=== PATIENT | male | born 1955 | race Caucasian/White ===

== ENCOUNTER 2017-09-23 07:18 | Inpatient (IN) | payer MEDICARE ==
[2017-09-23] MEDS ORDERED: Albuterol Sulfate 2.5 mg/0.5 ml Neb ONE (08:29)
[2017-09-23] MEDS ORDERED: Sodium Chloride For Inhalation 0.9% 3 ML NEB ONE (08:29)
[2017-09-23 08:56] LABS: Modified Allen's Test POSITIVE; Sodium 138 mmol/L (135-148); Vent NO
[2017-09-23 08:57] LABS: Mode BIPAP 14/7 RATE 8
[2017-09-23 09:09] LABS: Troponin I 0.425 ng/mL (< 0.028)
[2017-09-23] MEDS ORDERED: Acetaminophen 325 MG TAB PO PRN (12:39)
[2017-09-23] MEDS ORDERED: Dextrose 5% in Water 1,000 ML IV PRN (12:39)
[2017-09-23] MEDS ORDERED: Dextrose 50% Abboject 50 ML SYRINGE SLOW IVP PRN (12:39)
[2017-09-23] MEDS ORDERED: Guaifenesin DM 100-10/5 ML UDCUP PO PRN (12:39)
[2017-09-23] MEDS ORDERED: Nicotine 21 MG PATCH TD SCH ×2 (12:45→13:30)
[2017-09-23 13:06] LABS: Troponin I 0.993 ng/mL (< 0.028)
[2017-09-23 14:02] VITALS: BMI 34.9
[2017-09-23 15:29] LABS: Critical Call Chem Troponin I RESULT DECREASING; Troponin I 0.917 ng/mL (< 0.028)
[2017-09-23] MEDS: Furosemide 40 MG TAB PO SCH (15:53)
[2017-09-23] MEDS: Nicotine 21 MG PATCH TD SCH (15:53)
[2017-09-23] MEDS: HumaLOG 300 UNITS/3 ML VIAL SC PRN ×2 (15:56→20:56)
[2017-09-23] MEDS: Sodium Chloride 0.9% 1,000 ML IV SCH (16:00)
--- NOTE | 2017-09-23 16:33 | HP ---
REASON FOR ADMISSION: Acute respiratory failure with hypoxia and hypercarbia, acute on COPD exacerbation, mild CHF exacerbation. HISTORY OF PRESENTING ILLNESS: The patient gives history of waking up around 4 a.m. with severe shortness of breath. As he finally could not breathe and felt very suffocated, called EMS. EMS took him to [facility] where he has had initial workup done and was placed on BiPAP for acute respiratory failure with hypoxia. He was found to have had saturations of 83% on room air. The patient also was given 80 mg of Lasix and was placed on nitroglycerin drip again, it is not clear why he was placed on nitroglycerin drip. The patient does not have any chest pain at present nor did he have when he woke up. The patient has chronic cough with expectoration of white sputum. He continues to smoke one pack a day and has been doing so for the last 42 years or so. He states he normally ambulates by himself. No complaints of fever, palpitations, or PND. PAST MEDICAL AND SURGICAL HISTORY: Severe coronary artery disease needing redo bypass once his ejection fraction improves, history of CHF with systolic dysfunction, hypertension, diabetes mellitus type 2, dyslipidemia, history of CVA, and appendectomy. CURRENT MEDICATIONS: Patient is on aspirin 81 mg twice daily, Coreg 12.5 mg twice daily, metformin 500 mg twice daily, and Pravachol 40 mg at bedtime. ALLERGIES: No known drug allergies. PERSONAL HISTORY: Smokes one pack a day and has been doing so from last 42 years. Does not abuse drugs or alcohol. He stays alone. Patient is not . FAMILY HISTORY: Mother of breast cancer and complications at the age of 82 years. Father at the age of 65 years. He has had history of coronary artery disease and valve replacement. He apparently in his sleep. REVIEW OF SYSTEMS: The following complete review of systems was negative, unless otherwise mentioned in the HPI or below: Constitutional: Weight loss or gain, ability to conduct usual activities. Skin: Rash, itching. Eyes: Double vision, pain. ENT/Mouth: Nose bleeding, neck stiffness, pain, tenderness. Cardiovascular: Palpitations, dyspnea on exertion, orthopnea. Respiratory: Shortness of breath, wheezing, cough, hemoptysis, fever or night sweats. Gastrointestinal: Poor appetite, abdominal pain, heartburn, nausea, vomiting, constipation, or diarrhea. Genitourinary: Urgency, frequency, dysuria, nocturia. Musculoskeletal: Pain, swelling. Neurologic/Psychiatric: Anxiety, depression. Allergy/Immunologic: Skin rash, bleeding tendency. PHYSICAL EXAMINATION: GENERAL: The patient is a 62-year-old male who is currently on BiPAP and is not in any distress. VITAL SIGNS: Blood pressure 100/78, pulse 86 per minute, respiratory rate 24 per minute, temperature 97.6 degrees Fahrenheit, saturating 97% on BiPAP and was 83% on room air at [facility] prior to being placed on BiPAP. NECK: Supple. There is elevated JVD. EYES: Extraocular muscles intact. Pupils reacting to light. ORAL CAVITY: Mucous membranes are dry. No exudates or congestion. CARDIOVASCULAR SYSTEM: S1, S2 heard. Regular rhythm. RESPIRATORY SYSTEM: Air entry 2+ bilateral. Scattered rhonchi plus bilateral. ABDOMEN: Soft, bowel sounds heard. No tenderness, rigidity or guarding. EXTREMITIES: No peripheral edema or calf tenderness. VASCULAR SYSTEM: Peripheral pulses 1+ bilateral. No ischemic ulcerations or gangrene. CENTRAL NERVOUS SYSTEM: No gross focal deficits seen. Patient is alert, awake , oriented x3. PSYCHIATRIC SYSTEM: The patient's mood is euthymic. No hallucinations or delusions. LABORATORY DATA AND X-RAY FINDINGS: Most of his labs were done at [facility]. Sodium 138, potassium 4.6, serum bicarbonate 20, BUN 24, creatinine 1.4, glucose 162, albumin 4.3, lipase was 109, magnesium 2.3. BNP was 401, PT/INR within normal limits. White count of 13, hemoglobin and hematocrit 18 and 53, platelet count 184, MCV is 86. Had indeterminate troponin of 0.05 initially and has peaked up to 0.9, CK-MB 8.5. Had a blood gas done which shows pH of 7.41, pCO2 30, pO2 77, and bicarbonate is 18. Chest x-ray done at [facility] shows the report, which states congestion with cardiomegaly. EKG done shows normal sinus rhythm at 83 beats per minute. There is incomplete LBBB and T inversions seen in lateral wall V4, V5, V6. CLINICAL IMPRESSION AND PLAN: The patient will be admitted to [facility] for acute on chronic respiratory failure with hypoxemia and hypercarbia. He also has acute chronic obstructive pulmonary disease exacerbation with ongoing smoking history and mild congestive heart failure exacerbation with very low ejection fraction. His last known ejection fraction by cardiac catheterization done in 06/2017 was around 10%. He will be on Lasix 40 mg p.o. twice daily along with DuoNebs, Solu-Medrol IV q.6 hourly, and empiric Levaquin. We will continue his bilevel positive airway pressure as before. Also gently hydrate him as patient will be on clear liquid diet due to him being on bilevel positive airway pressure. We will consult Dr. Urbano who is cement mason for Pulmonology. The patient was counseled with regards to smoking cessation. Patient has history of coronary artery disease with all of his grafts occluded and needs a redo but his ejection fraction is 10% with his ongoing smoking history and noncompliance with diet. His surgery was postponed until such time as he clears himself. We will continue to closely monitor him on IMCU floor. RADHA
[2017-09-23] MEDS ORDERED: Sterile Water 10 ML ONE (17:08)
--- NOTE | 2017-09-23 17:10 | RAD ---
ONE VIEW CHEST: History: Dyspnea. Comparison: 02-25-17 FINDINGS: Portable upright chest demonstrates sternotomy wires. The heart size is within normal limits. Pulmon jim vessels and hilum are normal. Costophrenic angles are clear. No masses or consolidation. No pneu mothorax or osseous abnormality. Atherosclerosis of the aorta is noted. IMPRESSION: 1. Cardiomegaly. No acute process. 2. Atherosclerosis of the aorta. POS: MARSHALL
[2017-09-23] MEDS: Mometasone/Formoterol 120 PUFF INHALER INH SCH (18:45)
--- NOTE | 2017-09-23 19:38 | CON ---
DATE OF CONSULTATION: 09/23/2017 HISTORY OF PRESENT ILLNESS: Mr. Stubbs is a 62-year-old male. [facility] and [facility] here with complaints of shortness of breath. He was originally noninvasivel y ventilated, this was discontinued upon arrival in the ICU. PAST MEDICAL HISTORY: 1. Remarkable for heart disease with history of coronary bypass grafting in the past. 2. History of myocardial infarctions x3 per his history. 3. History of a long time tobacco use. He denies ever being told he had obstructive lung disease; however. 4. History of a hospitalization here in January where he was considered for possible reoperative jose nary bypass grafting. He was found to have severe [place] 3-vessel coronary disease, complete occlus ion of all 5 bypass grafts and severe reduction of left ventricular function as well as myocardial i nfarction. Dr. Cobos recommended medical management, it was felt that if he could quit smoking and it could be documented that he followed up with his physicians can surgery might be considered, but was not felt to be appropriate at that time. 5. History of diabetes. 6. History of lipid disorder. 7. History of stroke. 8. History of an appendectomy. FAMILY HISTORY: Negative for lung disease at an early age. MEDICATIONS: On admission, this time, he is only on Coreg. He said he could only aford the 4 Vinicius r drugs, although he is still spending a lot of that money on cigarettes. ALLERGIES: Reports no drug allergies. REVIEW OF SYSTEMS: Otherwise negative. PHYSICAL EXAMINATION: VITAL SIGNS: Blood pressure is 151/88, heart rate is 76, respiratory rate 16, oximetry is 100%. HEENT: Pupils are equal. Sclerae is anicteric. NECK: Supple. LUNGS: Remarkable for bilateral equal breath sounds. He was not wheezing when I saw him. HEART: Regular rhythm. S1 and S2 are normal. ABDOMEN: Soft and nontender. EXTREMITIES: Without asymmetry. LABORATORY DATA AND IMAGING: White count 9.5, hemoglobin 18.2, platelets 173. He was given a diure tic in the emergency room. His creatinine was elevated at 1.43. No chest x-ray done in the emergen cy room, so chest radiograph was ordered. Chest radiograph is clear. IMPRESSION AND PLAN: 1. ? chronic obstructive pulmonary disease exacerbation. Clinically, he does not appear to be in c ongestive heart failure, although when I was consulted to see him, he had already received a diureti c and diuresed. 2. Erythrocytosis either secondary to intravascular volume depletion or untreated sleep apnea or ab ove, I will need to be repeated in the morning. 3. History of occlusion of all 5 bypass grafts with severe left ventricular dysfunction. 4. History of severe obstructive lung disease. I will be happy to follow while he is in the [facility].
[2017-09-23] MEDS: Atorvastatin Calcium 40 MG TAB PO SCH (20:55)
[2017-09-23] MEDS: Docusate 100 MG CAP PO SCH (20:55)
[2017-09-23] MEDS: Famotidine 20 MG TAB PO SCH (20:55)
[2017-09-23] MEDS ORDERED: Non-Formulary Item 1 EACH (Budesonide-Formoterol [Symbicort 160-4.5] 2 PUFF) INH SCH (21:00)
[2017-09-23] MEDS ORDERED: FLU VACC QS2017-18 36 mo. & older 0.5 ML SYRINGE IM ONE (21:00)
--- NOTE | 2017-09-24 00:05 | CON ---
DATE OF CONSULTATION: 09/23/2017 CARDIOLOGY CONSULTATION PRIMARY HOST: Mando Valadez M.D. REASON FOR CONSULTATION: Acute on chronic combined congestive heart failure. HISTORY OF PRESENT ILLNESS: Mr. Stubbs is a 62-year-old gentleman with severe ischemic car diomyopathy under the care of Dr. Mando Valadez. He has known coronary artery disease and underwe nt 5-vessel bypass surgery remotely with the last catheterization in 01/2017 revealing 0 of 5 bypass grafts patent. He has severe LV dysfunction with an ejection fraction of 10%-15% and is currently being managed medically. Recommendations in January was for a LifeVest fitting with echo and office f kaylene after 40 days post-MT. Review of the office record does not show evidence of follow up in t he outpatient setting and he is not currently wearing a LifeVest. He has not had prophylactic AICD implant to date. He presents with acute onset of dyspnea which has worsened over the days prior to its acute worsenin g. He likens his breathing problem to an acute chronic obstructive pulmonary disease exacerbation a nd was placed in the Intensive Care Unit for close observation and treatment. He has improved consi derably with treatments and with IV diuresis with Lasix. PAST MEDICAL HISTORY: 1. Coronary artery disease with ischemic cardiomyopathy, ejection fraction in January with 10%-15%, 0 of 5 bypass grafts were patent. 2. Hypertension. 3. Type 2 diabetes. 4. Morbid obesity. 5. Dyslipidemia. PAST SURGICAL HISTORY: 1. Appendectomy. 2. 5-vessel bypass. 3. Heart catheterization. ALLERGIES: No known drug allergies. SOCIAL HISTORY: He smokes cigarettes for decades and continues to smoke cigarettes, smoking 1 pack per day currently. He denies illicit drug use or alcohol abuse. FAMILY HISTORY: Positive for atherosclerosis. CURRENT MEDICATIONS: At home include: 1. Aspirin 325 mg daily. 2. Carvedilol 12.5 mg daily. 3. Metformin 500 mg daily. 4. Pravastatin 40 mg daily. Of note, he reports not taking his medicines for the last month due to financial constraints and dori bility to pay for them. REVIEW OF SYSTEMS: As per history of present illness, the remainder of 12 system review is negative . PHYSICAL EXAMINATION: VITAL SIGNS: Blood pressure is 151/88, pulse 76 and regular, respiration rate 16 and nonlabored, te mperature 98.8, oxygen saturation is 100% on room air. GENERAL: This is a well-developed, morbidly obese 62-year-old gentleman in no acute distr ess. He is alert and oriented x4, answers questions appropriately. HEENT: Head was atraumatic, normocephalic. Pupils are equally round and reactive. Sclerae and con junctivae are clear. Oral and nasal mucosa is intact. No lesions. NECK: Supple. No JVD, thyromegaly, or carotid bruits. CHEST: Symmetrical in inspiration and expiration. HEART: Regular in rate and rhythm with soft 2/6 systolic murmur at the apex with left axilla. PMI enlarged and displaced laterally. LUNGS: Bibasilar crackles are noted bilaterally with diminished breath sounds in the bases. ABDOMEN: Soft, nontender, nondistended, without mass or organomegaly. Bowel sounds are present in all 4 quadrants. No flank bruits auscultated. EXTREMITIES: 2+ pulses noted bilaterally. Upper and lower extremity strength 5/5 bilaterally. The re is mild ankle edema bilaterally. NEUROLOGIC: Grossly intact without focal motor deficits appreciated. DATABASE: Sinus rhythm, frequent PVCs, incomplete left bundle branch block, nonspecific T changes. LABORATORY DATA: CBC reveals a white count of 9, H\T\H 18 and 55, platelet count 173. Differential white blood cells normal. Red cell indices normocytic. Coagulation studies not performed. Chemistries: Electrolytes are normal. BUN and creatinine of 22 and 1.4. LFTs are within normal limits. CK is 495 with a CK-MB of 8.5 and troponin of 0.9. BNP i s elevated at 350. ASSESSMENT: 1. Congestive heart failure, acute on chronic combined. 2. Chronic obstructive pulmonary disease with acute exacerbation. 3. Ischemic cardiomyopathy with an ejection fraction of 10%-15%. 4. Poor compliance with medical recommendations. 5. Chronic kidney disease stage 3. 6. Dyslipidemia. 7. Type 2 diabetes mellitus. RECOMMENDATIONS: 1. From a cardiac standpoint, he has improved symptomatically with IV diuresis with Lasix. We will continue this for optimization of his volume status with the resumption of medical management. He will need to be seen again by Dr. Jacobson to consider AICD implantation versus a CRTD device. He is a high risk for sudden cardiac given his underlying cardiac substrate. 2. I will inform Dr. Valadez of his admission. He will assume care tomorrow for the remainder of this hospitalization. I appreciate the opportunity to participate.
[2017-09-24 04:07] LABS: #Basophils 0.1 thou/uL (0.0-0.2); #Lymphocytes 0.8 thou/uL (1.20-3.40); #Monocytes 0.4 thou/uL (0.11-0.59); #Neutrophils 15.3 thou/uL (1.40-6.50); %Basophils 0.3 % (0.0-1.0); %Eosinophils 0.1 % (0.0-10.0); %Lymphocytes 4.5 % (21.0-51.0); %Monocytes 2.4 % (0.0-10.0); Hematocrit 51.2 % (42.0-52.0); Mean Platelet Volume 7.8 fL (7.4-10.4); Red Blood Cell (RBC) Count 5.65 mill/uL (4.70-6.10); White Blood Cell (WBC) Count 16.5 thou/uL (4.8-10.8)
[2017-09-24 04:08] LABS: Anion Gap 14 mmol/L (10-20); BUN (Urea Nitrogen) 27 mg/dL (8.4-25.7); Calc. Creatinine Clearance 93 mL/min (70-130); Calcium 9.5 mg/dL (7.8-10.44); Carbon Dioxide 23 mmol/L (23-31); Chloride 103 mmol/L (98-107); Estimated GFR-MDRD 52
[2017-09-24] MEDS: HumaLOG 300 UNITS/3 ML VIAL SC PRN ×3 (05:59→17:58)
[2017-09-24] MEDS: Mometasone/Formoterol 120 PUFF INHALER INH SCH ×2 (07:47→19:22)
[2017-09-24] MEDS: Aspirin 325 MG TAB PO SCH (08:45)
[2017-09-24] MEDS: Famotidine 20 MG TAB PO SCH ×2 (08:45→20:18)
[2017-09-24] MEDS: Docusate 100 MG CAP PO SCH ×3 (08:45→20:18)
[2017-09-24] MEDS: Clopidogrel Bisulfate 75 MG TAB PO SCH (08:45)
[2017-09-24] MEDS: Nicotine 21 MG PATCH TD SCH (08:45)
[2017-09-24] MEDS: Enoxaparin Sodium 40 MG/0.4 ML SYRINGE SC SCH (08:45)
[2017-09-24] MEDS: Furosemide 40 MG TAB PO SCH ×2 (08:45→14:09)
[2017-09-24] MEDS: Sodium Chloride 0.9% 1,000 ML IV SCH (08:46)
--- NOTE | 2017-09-24 11:18 | PDOC.PN ---
- Subjective Encounter Start Date: 09/24/17 Encounter Start Time: 07:55 Subjective: breathing better, no sob -: is on nasal canula -: says his tip of nose is always dark and not something new - Objective Resuscitation Status: Resuscitation Status FULL:Full Resuscitation MAR Reviewed: Yes Vital Signs & Weight: Vital Signs (12 hours) Temp Pulse Resp BP Pulse Ox 09/24/17 08:26 98.0 F 79 24 H 141/56 H 98 09/24/17 08:00 98.0 F 79 24 H 98 09/24/17 07:43 76 20 100 09/24/17 04:00 97.8 F 09/24/17 00:00 98.3 F 09/23/17 23:21 85 18 98 Weight Admit Weight 4.124 oz Weight 257 lb 11.526 oz Most Recent Monitor Data Heart Rate from ECG 73 NIBP 118/61 NIBP BP-Mean 87 Respiration from ECG 23 SpO2 100 I&O: 09/23/17 09/24/17 09/25/17 06:59 06:59 06:59 Intake Total 1675 Output Total 1825 200 Balance -150 -200 Result Diagrams: 09/24/17 03:26 09/24/17 03:26 Additional Labs: Accuchecks 09/24/17 09/23/17 09/23/17 05:57 20:55 14:31 POC Glucose 206 H 205 H 216 H Phys Exam - Physical Examination plethora+over ant chest and face HEENT: PERRLA, moist MMs Neck: no JVD, supple Respiratory: no wheezing, no rales Cardiovascular: RRR, no significant murmur Gastrointestinal: soft, non-tender, positive bowel sounds Musculoskeletal: no edema, pulses present Neurological: non-focal, moves all 4 limbs Psychiatric: A&O x 3 Dx/Plan (1) Acute respiratory failure with hypoxia and hypercarbia Code(s): J96.01 - ACUTE RESPIRATORY FAILURE WITH HYPOXIA; J96.02 - ACUTE RESPIRATORY FAILURE WITH HYPERCAPNIA Status: Resolved Comment: is off bipap , now on nasal canula (2) COPD exacerbation Code(s): J44.1 - CHRONIC OBSTRUCTIVE PULMONARY DISEASE W (ACUTE) EXACERBATION Status: Acute (3) CHF exacerbation Code(s): I50.9 - HEART FAILURE, UNSPECIFIED Status: Acute Qualifiers: Congestive heart failure type: systolic Qualified Code(s): I50.23 - Acute on chronic systolic (congestive) heart failure (4) CAD (coronary artery disease) Code(s): I25.10 - ATHSCL HEART DISEASE OF [place] CORONARY ARTERY W/O ANG PCTRS Status: Chronic Qualifiers: Coronary Disease-Associated Artery/Lesion type: bypass graft [place] vs. transplanted heart: [place] heart Associated angina: without angina Qualified Code(s): I25.810 - Atherosclerosis of coronary artery bypass graft(s) without angina pectoris (5) DM type 2 (diabetes mellitus, type 2) Status: Chronic Qualifiers: Diabetes mellitus complication status: with unspecified complications Diabetes mellitus mcc insulin use: without mcc use Qualified Code( s): E11.8 - Type 2 diabetes mellitus with unspecified complications (6) H/O: CVA (cerebrovascular accident) Code(s): Z86.73 - PRSNL HX OF TIA (TIA), AND CEREB INFRC W/O RESID DEFICITS Status: Chronic (7) HLD (hyperlipidemia) Code(s): E78.5 - HYPERLIPIDEMIA, UNSPECIFIED Status: Chronic Qualifiers: Hyperlipidemia type: unspecified Qualified Code(s): E78.5 - Hyperlipidemia , unspecified (8) HTN (hypertension) Code(s): I10 - ESSENTIAL (PRIMARY) HYPERTENSION Status: Chronic Qualifiers: Hypertension type: essential hypertension Qualified Code(s): I10 - Essential (primary) hypertension (9) Tobacco dependence Code(s): F17.200 - NICOTINE DEPENDENCE, UNSPECIFIED, UNCOMPLICATED Status: Chronic - Plan may tx pt to telemetry -: is on oral lasix -: dc iv fluids -: may switch to oral steroids -: to amb as tolerated, oral solid diet * . Review of Systems - Medications/Allergies Allergies/Adverse Reactions: Allergies Allergy/AdvReac Type Severity Reaction Status Date / Time No Known Allergies Allergy Verified 09/23/17 15:31 Medications: Current Medications Acetaminophen (Tylenol) 650 mg PO Q4H PRN PRN Reason: Headache/Fever or Pain Albuterol/Ipratropium (Duoneb) 3 ml NEB [id number] [id number] Last Admin: 09/24/17 07:43 Dose: 3 ml Aspirin (Aspirin) 325 mg PO DAILY [facility] Last Admin: 09/24/17 08:45 Dose: 325 mg Atorvastatin Calcium (Lipitor) 80 mg PO HS [facility] Last Admin: 09/23/17 20:55 Dose: 80 mg Clopidogrel Bisulfate (Plavix) 75 mg PO DAILY [facility] Last Admin: 09/24/17 08:45 Dose: 75 mg Dextrose/Water (Dextrose 50%) 25 gm SLOW IVP PRN PRN PRN Reason: Hypoglycemia Docusate Sodium (Colace) 100 mg PO BID [facility] Last Admin: 09/24/17 08:48 Dose: Not Given Enoxaparin Sodium (Lovenox) 40 mg SC 0900 [facility] Last Admin: 09/24/17 08:45 Dose: 40 mg Famotidine (Pepcid) 20 mg PO BID [facility] Last Admin: 09/24/17 08:45 Dose: 20 mg Furosemide (Lasix) 40 mg PO 0900,1400 [facility] Last Admin: 09/24/17 08:45 Dose: 40 mg Glucagon (Glucagon) 1 mg IM PRN PRN PRN Reason: Hypoglycemia Guaifenesin/Dextromethorphan (Robitussin Dm) 15 ml PO Q4H PRN PRN Reason: Cough Dextrose/Water (D5w) 1,000 mls @ 0 mls/hr IV .Q0M PRN; As Directed PRN Reason: Hypoglycemia Levofloxacin 500 mg/ Device 100 mls @ 100 mls/hr IVPB 1400 [facility] Last Admin: 09/23/17 15:51 Dose: 100 mls Insulin Human Lispro (Humalog) 0 units SC .MODERATE SLIDING SC PRN PRN Reason: Moderate [place] Scale Last Admin: 09/24/17 05:59 Dose: 4 unit Metformin HCl (Glucophage Xr) 500 mg PO QPM-WM [facility] Methylprednisolone Sodium Succinate (Solu-Medrol) 40 mg IVP Q6HR [facility] Last Admin: 09/24/17 05:57 Dose: 40 mg Mometasone Furoate/Formoterol Fumar (Dulera 200 Mcg/5 Mcg Inhaler) 2 puff INH BID-RT [facility] Last Admin: 09/24/17 07:47 Dose: 2 puff Sodium Chloride (Flush - Normal Saline) 10 ml IVF Q12HR [facility] Last Admin: 09/24/17 08:46 Dose: Not Given Sodium Chloride (Flush - Normal Saline) 10 ml IVF PRN PRN PRN Reason: Saline Flush
[2017-09-24] MEDS ORDERED: metFORMIN XR 500 MG TAB PO SCH (17:00)
[2017-09-24] MEDS: Fluticasone Propionate Nasal Spray 16 gm Bottle NASAL SCH (20:12)
[2017-09-24] MEDS: Atorvastatin Calcium 40 MG TAB PO SCH (20:18)
[2017-09-24] MEDS ORDERED: CEFAZOLIN/Water 2 GM/20 ML SYRINGE SLOW IVP SCH (21:15)
--- NOTE | 2017-09-24 21:17 | PRG ---
DATE OF SERVICE: 09/24/2017 SUBJECTIVE: Mr. Stubbs did well overnight. He says he is feeling better. He has moved out of the [facility]. OBJECTIVE: VITAL SIGNS: He is afebrile, respiratory rate is in the 20s, oximetry 97%, blood pressure 163/86. LUNGS: Clear now. IMPRESSION: 1. Chronic obstructive pulmonary disease exacerbation, dramatically improved. 2. Underlying cardiomyopathy with medical noncompliance. Electrophysiology has been consulted. We will decrease his steroids. We will continue nebulizer treatments.
--- NOTE | 2017-09-24 23:34 | CON ---
Sayda Caruso NP, dictating for Agustin Jacobson M.D. DATE OF CONSULTATION: 09/24/2017 CARDIAC ELECTROPHYSIOLOGY CONSULTATION NOTE REFERRING PHYSICIAN: Dr. Steve REASON FOR CONSULTATION: Chronic ischemic cardiomyopathy. HISTORY OF PRESENT ILLNESS: Joseph Stubbs is a 62-year-old male patient who is seen today in consultation at the request of Dr. Steve. The patient has a history of chronic ischemic cardiomyopathy. He underwent coronary artery bypass grafting several years ago. He suffered an CA in January of this year. At that time, his left ventricular ejection fraction was severely diminished at 10-15 percent. He was recommended for a LifeVest and then follow up with an echocardiogram 45 days later. The patient was noncompliant with followup. He presented to the Emergency Room recently with heart failure exacerbation superimposed on COPD. He was given Lasix with supplemental potassium and his symptoms improved greatly. The patient had a repeat echocardiogram earlier today and the results are pending. The patient reports dyspnea on exertion and extreme fatigue with activity such as working in his yard, picking up tree limbs. Sometimes he notices severe left arm pain and palpitations associated with these incidents. He denies any giovanna syncope. His symptoms improve when he rests. PAST MEDICAL HISTORY: 1. Atherosclerotic cardiovascular disease status post previous coronary artery bypass grafting, probably occluded bypass grafts. 2. Type 2 diabetes mellitus. 3. Acute on chronic congestive heart failure. 4. Chronic obstructive pulmonary disease with continued tobacco habituation. 5. History of CVA. 6. Dyslipidemia. 7. Obesity. 8. Hypertension. 9. Dilated cardiomyopathy with decreased left ventricular ejection fraction of 10-15%. 10. Myocardial infarction in 01/2017. 11. History of nonsustained ventricular tachycardia 5 days after his CA in January of this year. ALLERGY/INTOLERANCE: None known. CURRENT MEDICATIONS: 1. Albuterol inhaler p.r.n. 2. Lisinopril 20 mg daily. 3. Coreg 12.5 mg b.i.d. 4. Metformin 500 mg b.i.d. 5. Pravastatin 40 mg daily. FAMILY HISTORY: The patient's father at age 65. He had some heart rhythm issues in heart valve replacement. His mother at age 82. SOCIAL HISTORY: The patient is disabled. He has approximately a [id number] history of smoking and quit smoking on Saturday. He denies any use of alcohol. REVIEW OF SYSTEMS: Ten point review of systems was negative except what was mentioned in the history of present illness. PHYSICAL EXAMINATION: GENERAL: The patient is an overweight appearing male in no apparent distress. VITAL SIGNS: Blood pressure 142/62, pulse 70, respirations 16. HEENT: Head normocephalic. Pupils equal, round, and reactive to light and accommodation. NECK: Supple, without jugular venous distention. RESPIRATORY: Diminished throughout the lung bell but no adventitious sounds noted. Respiratory effort unlabored with good bilateral excursion. CARDIOVASCULAR: Regular rate and rhythm. S1, S2. A grade 2/6 holosystolic murmur was noted at the left sternal border, which radiated toward the apex. PMI laterally displaced. No thrills, lifts, or heaves. ABDOMEN: Soft, less nontender. Bowel sounds normoactive. Hepatojugular reflux negative. EXTREMITIES: No lower extremity edema noted. NEUROLOGIC/PSYCHIATRIC: Oriented x3. Normal affect. Cranial nerves II-XII grossly intact. DIAGNOSTIC DATA: EKG today demonstrated normal sinus rhythm with evidence of anteroseptal CA of indeterminant age. Isolated ventricular prematures were noted. The QRS duration was 110 milliseconds. There was a borderline first degree AV block. Echocardiogram results pending. IMPRESSION: 1. History of dilated cardiomyopathy with decreased left ventricular ejection fraction. The patient had an echocardiogram today and the results are pending. However, based on his clinical history most likely his ejection fraction is less than 35%. 2. Acute on chronic congestive heart failure, improved. 3. Hypertension. 4. Dyslipidemia. 5. Type 2 diabetes mellitus. 6. Comorbidity of chronic obstructive pulmonary disease with tobacco habituation. 7. History of nonsustained ventricular tachycardia documented after his myocardial infarction. The patient does have episodes of lightheadedness with associated tachycardia, but we have not been able to correlate his symptoms with ventricular arrhythmia. 8. Relatively narrow QRS duration at 110 milliseconds. PLAN: If the patient's echocardiogram demonstrates a left ventricular ejection fraction less than 35%, the patient will meet criteria for an ICD based on primary prevention. Because his QRS duration is around 110 milliseconds, he does not meet criteria for cardiac resynchronization therapy. We will review the patient's echocardiogram and tentatively schedule him for an ICD tomorrow. The patient understands the goals and risks including , CA, CVA, cardiac arrest, cardiac perforation, pneumothorax, lead dislodgement, and possible need for repeat or serial procedures. We appreciate the opportunity to participate in this patient's care. This plan has been discussed with Dr. Agustin Jacobson. RADHA
[2017-09-25] MEDS: Mometasone/Formoterol 120 PUFF INHALER INH SCH ×2 (07:12→19:06)
[2017-09-25] MEDS: Furosemide 40 MG TAB PO SCH (09:00)
[2017-09-25] MEDS: Aspirin 325 MG TAB PO SCH (09:00)
[2017-09-25] MEDS: Docusate 100 MG CAP PO SCH ×2 (09:00→20:13)
[2017-09-25] MEDS: Clopidogrel Bisulfate 75 MG TAB PO SCH (09:00)
--- NOTE | 2017-09-25 09:11 | PQF ---
CLINICAL DOCUMENTATION IMPROVEMENT CLARIFICATION FORM: ICD-10 Updated PLEASE DO AN ADDENDUM TO THE PROGRESS NOTE WITH ANY DOCUMENTATION UPDATES OR ADDITIONS AND CARRY THROUGH TO DC SUMMARY. THANK YOU. DATE: 09/25 ATTN: DR. Evonne WESTBROOK Please exercise your independent, professional judgment in responding to the clarification form. Clinical indicators are provided on the bottom of this form for your review Please check appropriate box(s): AMI TYPE: [ ] Acute Coronary Syndrome (ACS) without Acute MD meaning Unstable Angina [ ] NSTEMI [ ] AMI Type II DUE TO (if applicable): [ x ] Demand Ischemia [ ] Occlusion of coronary bypass graft(s) [x ] Underlying CAD [ ] Other [ ] Other diagnosis [ ] Unable to determine CLINICAL INDICATORS - SIGNS / SYMPTOMS / LABS TROP I: 0.425, 0.993, 0.917 CKMB: 8.5 (ON ADMIT, 09/23) RISKS: SEVERE CAD IN NEED OF RE-DO CABG HTN DM II ACUTE ON CHRONIC SYSTOLIC CHF EXACERBATION ACUTE ON CHRONIC RESPIRATORY FAILURE TREATMENTS: CARDIOLOGY CONSULT EP CONSULT SUPPLEMENTAL OXYGEN TELEMETRY MONITORING THANK YOU! Ileana (This form is maintained as a part of the permanent medical record) 2014 [employer]. All Rights Reserved Ileana Dinh RN, BSN [email or web address] Office: [phone] [facility]
[2017-09-25] MEDS: Famotidine 20 MG TAB PO SCH ×2 (09:27→20:13)
[2017-09-25] MEDS: Fluticasone Propionate Nasal Spray 16 gm Bottle NASAL SCH ×2 (09:27→21:08)
--- NOTE | 2017-09-25 10:13 | PDOC.PN ---
- Subjective Encounter Start Date: 09/25/17 Encounter Start Time: 08:40 Subjective: breathing better, no chest pain - Objective Resuscitation Status: Resuscitation Status FULL:Full Resuscitation MAR Reviewed: Yes Vital Signs & Weight: Vital Signs (12 hours) Temp Pulse Resp BP Pulse Ox 09/25/17 08:00 97.5 F L 72 20 151/81 H 95 09/25/17 07:11 74 16 98 09/25/17 04:00 97.5 F L 73 18 117/56 L 95 09/25/17 00:09 78 16 09/25/17 00:00 78 128/78 Weight Admit Weight 4.124 oz Weight 249 lb 3.2 oz Most Recent Monitor Data Heart Rate from ECG 73 NIBP 118/61 NIBP BP-Mean 87 Respiration from ECG 23 SpO2 100 I&O: 09/24/17 09/25/17 09/26/17 06:59 06:59 06:59 Intake Total 1675 1238 Output Total 1825 500 Balance -150 738 Result Diagrams: 09/24/17 03:26 09/24/17 03:26 Additional Labs: Accuchecks 09/25/17 09/24/17 09/24/17 05:51 20:41 17:48 POC Glucose 168 H 227 H 242 H 09/24/17 11:42 POC Glucose 218 H Phys Exam - Physical Examination HEENT: PERRLA, moist MMs Neck: no JVD, supple Respiratory: no wheezing, no rales Cardiovascular: RRR, no significant murmur Gastrointestinal: soft, non-tender, positive bowel sounds Musculoskeletal: no edema, pulses present Neurological: non-focal, moves all 4 limbs Psychiatric: A&O x 3 Dx/Plan (1) Acute respiratory failure with hypoxia and hypercarbia Code(s): J96.01 - ACUTE RESPIRATORY FAILURE WITH HYPOXIA; J96.02 - ACUTE RESPIRATORY FAILURE WITH HYPERCAPNIA Status: Resolved Comment: is off bipap , now on nasal canula (2) COPD exacerbation Code(s): J44.1 - CHRONIC OBSTRUCTIVE PULMONARY DISEASE W (ACUTE) EXACERBATION Status: Resolved (3) CHF exacerbation Code(s): I50.9 - HEART FAILURE, UNSPECIFIED Status: Acute Qualifiers: Congestive heart failure type: systolic Qualified Code(s): I50.23 - Acute on chronic systolic (congestive) heart failure (4) CAD (coronary artery disease) Code(s): I25.10 - ATHSCL HEART DISEASE OF [place] CORONARY ARTERY W/O ANG PCTRS Status: Chronic Qualifiers: Coronary Disease-Associated Artery/Lesion type: bypass graft [place] vs. 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 insulin use: without middle or intermediate school principal use Qualified Code( s): E11.8 - Type 2 diabetes mellitus with unspecified complications (6) H/O: CVA (cerebrovascular accident) Code(s): Z86.73 - PRSNL HX OF TIA (TIA), AND CEREB INFRC W/O RESID DEFICITS Status: Chronic (7) HLD (hyperlipidemia) Code(s): E78.5 - HYPERLIPIDEMIA, UNSPECIFIED Status: Chronic Qualifiers: Hyperlipidemia type: unspecified Qualified Code(s): E78.5 - Hyperlipidemia , unspecified (8) HTN (hypertension) Code(s): I10 - ESSENTIAL (PRIMARY) HYPERTENSION Status: Chronic Qualifiers: Hypertension type: essential hypertension Qualified Code(s): I10 - Essential (primary) hypertension (9) Tobacco dependence Code(s): F17.200 - NICOTINE DEPENDENCE, UNSPECIFIED, UNCOMPLICATED Status: Chronic (10) Demand ischemia of myocardium Code(s): I24.8 - OTHER FORMS OF ACUTE ISCHEMIC HEART DISEASE Status: Acute - Plan is going for AICD placement today -: dc metformin, add glipizide -: oral lasix, empiric levaquin, steroids and duonebs -: to ambulate as tolerated -: dc plan in am if stable * . Review of Systems - Medications/Allergies Allergies/Adverse Reactions: Allergies Allergy/AdvReac Type Severity Reaction Status Date / Time No Known Allergies Allergy Verified 09/23/17 15:31 Medications: Current Medications Acetaminophen (Tylenol) 650 mg PO Q4H PRN PRN Reason: Headache/Fever or Pain Albuterol/Ipratropium (Duoneb) 3 ml NEB A4SN-ON [facility] Last Admin: 09/25/17 07:11 Dose: 3 ml Aspirin (Aspirin) 325 mg PO DAILY [facility] Last Admin: 09/24/17 08:45 Dose: 325 mg Atorvastatin Calcium (Lipitor) 80 mg PO HS [facility] Last Admin: 09/24/17 20:18 Dose: 80 mg Cefazolin Sodium (Ancef) 2 gm SLOW IVP WILLCALL [facility] Stop: 09/25/17 19:00 Clopidogrel Bisulfate (Plavix) 75 mg PO DAILY [facility] Last Admin: 09/24/17 08:45 Dose: 75 mg Dextrose/Water (Dextrose 50%) 25 gm SLOW IVP PRN PRN PRN Reason: Hypoglycemia Docusate Sodium (Colace) 100 mg PO BID [facility] Last Admin: 09/24/17 20:18 Dose: 100 mg Enoxaparin Sodium (Lovenox) 40 mg SC 0900 [facility] Last Admin: 09/24/17 08:45 Dose: 40 mg Famotidine (Pepcid) 20 mg PO BID [facility] Last Admin: 09/25/17 09:27 Dose: 20 mg Fluticasone Propionate (Flonase Nasal [place]) 0 gm NASAL BID [facility] Last Admin: 09/25/17 09:27 Dose: 1 spr Furosemide (Lasix) 40 mg PO 0900,1400 [facility] Last Admin: 09/24/17 14:09 Dose: 40 mg Glipizide (Glucotrol) 5 mg PO BID-AC [facility] Glucagon (Glucagon) 1 mg IM PRN PRN PRN Reason: Hypoglycemia Guaifenesin/Dextromethorphan (Robitussin Dm) 15 ml PO Q4H PRN PRN Reason: Cough Dextrose/Water (D5w) 1,000 mls @ 0 mls/hr IV .Q0M PRN; As Directed PRN Reason: Hypoglycemia Insulin Human Lispro (Humalog) 0 units SC .MODERATE SLIDING SC PRN PRN Reason: Moderate Correctional Scale Last Admin: 09/24/17 17:58 Dose: 4 unit Levofloxacin (Levaquin) 500 mg PO 0600 [facility] Last Admin: 09/25/17 06:02 Dose: 500 mg Methylprednisolone Sodium Succinate (Solu-Medrol) 20 mg IVP Q8HR [facility] Last Admin: 09/25/17 06:03 Dose: 20 mg Mometasone Furoate/Formoterol Fumar (Dulera 200 Mcg/5 Mcg Inhaler) 2 puff INH BID-RT [facility] Last Admin: 09/25/17 07:12 Dose: 2 puff Sodium Chloride (Flush - Normal Saline) 10 ml IVF Q12HR [facility] Last Admin: 09/24/17 20:19 Dose: 10 ml Sodium Chloride (Flush - Normal Saline) 10 ml IVF PRN PRN PRN Reason: Saline Flush Last Admin: 09/25/17 06:03 Dose: 10 ml
[2017-09-25] MEDS ORDERED: Midazolam HCl 5 mg/5 ml Vial ONE (14:12)
[2017-09-25] MEDS ORDERED: Propofol 1,000 MG/100 ML VIAL IV ONE (14:18)
[2017-09-25] MEDS ORDERED: CEFAZOLIN/Water 2 GM/20 ML SYRINGE ONE (14:28)
--- NOTE | 2017-09-25 15:22 | PRG ---
DATE OF SERVICE: 09/23/2017 SUBJECTIVE: Joseph Stubbs was felt to be a candidate for defibrillator placement. OBJECTIVE: He is afebrile. Heart rate is in the 70s, respiratory rate is 18, oximetry is 94, blood pressure 151/81. There has been no change otherwise. He is on the schedule for defibrillator. LABORATORY DATA: There is no new lab other than blood glucoses today. IMPRESSION: 1. Chronic obstructive pulmonary disease exacerbation, resolved. 2. Chronic congestive heart failure, not decompensated this admission. 3. Medical noncompliance.
[2017-09-25] MEDS ORDERED: Ondansetron HCl/PF 4 MG/2 ML Vial IVP PRN ×3 (16:06→16:26)
[2017-09-25] MEDS ORDERED: Promethazine HCl 25 MG/ML VIAL SLOW IVP PRN (16:06)
[2017-09-25] MEDS ORDERED: hydrALAZINE 20 MG/ML VIAL SLOW IVP ONE (16:15)
[2017-09-25] MEDS ORDERED: Labetalol HCl 100 MG/20 ML VIAL SLOW IVP PRN (16:15)
[2017-09-25] MEDS ORDERED: hydrALAZINE 20 MG/ML VIAL SLOW IVP PRN (16:15)
[2017-09-25] MEDS ORDERED: Bisacodyl 10 MG SUPP PR PRN (16:26)
[2017-09-25] MEDS ORDERED: Bisacodyl 5 MG TAB PO PRN (16:26)
[2017-09-25] MEDS ORDERED: Mag-Al 1200 mg/1200 mg/30 ML UDCUP PO PRN (16:26)
[2017-09-25] MEDS ORDERED: Temazepam 15 MG CAP PO PRN (16:26)
[2017-09-25] MEDS ORDERED: Silver Sulfadiazine 1% Cream 50 GM JAR TOP PRN (16:26)
[2017-09-25] MEDS ORDERED: Nitroglycerin 0.4 MG TAB (25 Tab Bottle) SL PRN (16:26)
[2017-09-25] MEDS ORDERED: diphenhydrAMINE 25 MG CAP PO PRN (16:26)
[2017-09-25] MEDS ORDERED: Acetaminophen/Codeine 30-300mg Tablet PO PRN (16:30)
[2017-09-25] MEDS: Enoxaparin Sodium 40 MG/0.4 ML SYRINGE SC SCH (18:36)
[2017-09-25] MEDS: glipiZIDE 5 MG TAB PO SCH (18:38)
--- NOTE | 2017-09-25 19:47 | CCLSPC ---
DATE OF PROCEDURE: 09/25/2017 ELECTROPHYSIOLOGY REPORT REASON FOR PROCEDURE: Mr. Stubbs is a 62-year-old male with history of prior [place] , coronary bypass grafting surgery, ischemic cardiomyopathy to assess his sinus and AV florina function as well as inducible arrhythmias prior to upcoming ICD implant. PROCEDURE: The patient received deep sedation by Anesthesia specialist. The right femoral vein was accessed with ultrasound guidance and a 6-[place] short sheath was introduced. Following that, a 6 [place] octapolar catheter was advanced to the right ventricle, His bundle and right atrium location. Comprehensive EP study was performed. FINDINGS: Baseline cycle lengths at 265 milliseconds, VA 208, QRS 108 milliseconds, QT 397, AH 138, HV 56 milliseconds. The sinus node recovery time was 810 milliseconds, corrected sinus node recovery time is 200 milliseconds, retrograde Wenckebach cycle length was 400, antegrade Wenckebach cycle length was 400 milliseconds. AV ERP was 600/260 milliseconds, no dual AV florina physiology was present. Ventricular extra stimuli induction protocol was performed with 500 and 400 milliseconds dry stains up to 3 ventricular extra stimuli, which was decremented to refractoriness. Nonsustained ventricular tachyarrhythmias were seen. No other atrial or ventricular arrhythmias induced with rapid atrial and ventricular pacing. CONCLUSION: 1. Normal AV florina and sinus florina function. 2. No inducible atrial or sustained ventricular arrhythmias. PLAN:Hence risk of ventricular arrhythmias long-term with reduced LVEF proceeded with a single chamber ICD implant. POS: MARSHALL GARCIA
[2017-09-25] MEDS: Acetaminophen/Codeine 30-300mg Tablet PO PRN (20:10)
[2017-09-25] MEDS: Atorvastatin Calcium 40 MG TAB PO SCH (20:11)
[2017-09-26] MEDS: traMADol HCl 50 MG TAB PO PRN ×2 (00:35→05:34)
[2017-09-26] MEDS: Fluticasone Propionate Nasal Spray 16 gm Bottle NASAL SCH (05:34)
[2017-09-26 06:33] LABS: Anion Gap 13 mmol/L (10-20); BUN (Urea Nitrogen) 36 mg/dL (8.4-25.7); Calc. Creatinine Clearance 100 mL/min (70-130); Calcium 9.1 mg/dL (7.8-10.44); Carbon Dioxide 22 mmol/L (23-31); Chloride 105 mmol/L (98-107); Estimated GFR-MDRD 60
[2017-09-26] MEDS: Mometasone/Formoterol 120 PUFF INHALER INH SCH ×2 (07:07→18:16)
[2017-09-26] MEDS ORDERED: Furosemide 40 MG TAB PO SCH (07:30)
--- NOTE | 2017-09-26 08:19 | RAD ---
RADIOGRAPH CHEST 1 VIEW: DATE: 09-26-13 TIME: 5:36 a.m. HISTORY: 62-year-old male status post cardiac device placement. FINDINGS: There is hyperinflation of the lungs, consistent with COPD. There is no evidence of air space densi ty, pneumothorax, or pulmonary edema. The lateral costophrenic angles are sharp. Since 09-23-17, th ere is a new finding of a left subclavian AICD. Sternotomy wires are again noted. IMPRESSION: 1) No acute pulmonary findings. 2) Emphysema. 3) Interval placement of left subclavian automatic implantable cardioverter/defibrillator, without p neumothorax. madina POS: MARSHALL
[2017-09-26] MEDS: Aspirin 325 MG TAB PO SCH (09:03)
[2017-09-26] MEDS: Docusate 100 MG CAP PO SCH (09:04)
[2017-09-26] MEDS: glipiZIDE 5 MG TAB PO SCH ×2 (09:04→15:30)
[2017-09-26] MEDS: Enoxaparin Sodium 40 MG/0.4 ML SYRINGE SC SCH (09:08)
[2017-09-26] MEDS: Acetaminophen/Codeine 30-300mg Tablet PO PRN ×2 (09:17→17:08)
[2017-09-26] MEDS: Famotidine 20 MG TAB PO SCH (09:21)
[2017-09-26] MEDS: Clopidogrel Bisulfate 75 MG TAB PO SCH (09:21)
--- NOTE | 2017-09-26 09:57 | PDOC.PN ---
- Subjective Encounter Start Date: 09/26/17 Encounter Start Time: 08:15 Subjective: no sob, feels better - Objective Resuscitation Status: Resuscitation Status FULL:Full Resuscitation MAR Reviewed: Yes Vital Signs & Weight: Vital Signs (12 hours) Temp Pulse Resp BP BP Pulse Ox 09/26/17 08:00 97.9 F 70 16 152/72 H 98 09/26/17 07:07 65 16 09/26/17 07:00 94 L 09/26/17 06:58 65 16 09/26/17 04:00 97.8 F 81 16 121/43 L 92 L 09/26/17 00:37 96.1 F L 72 18 159/72 H 95 Weight Admit Weight 4.124 oz Weight 246 lb 5 oz Most Recent Monitor Data Heart Rate from ECG 73 NIBP 118/61 NIBP BP-Mean 87 Respiration from ECG 23 SpO2 100 I&O: 09/25/17 09/26/17 09/27/17 06:59 06:59 06:59 Intake Total 1238 849.7 Output Total 500 1660 Balance 738 -810.3 Result Diagrams: 09/24/17 03:26 09/26/17 05:15 Additional Labs: Accuchecks 09/26/17 09/25/17 09/25/17 05:48 17:24 11:26 POC Glucose 149 H 127 H 161 H Phys Exam - Physical Examination HEENT: PERRLA, moist MMs Neck: no JVD, supple Respiratory: no wheezing, no rales Cardiovascular: RRR, no significant murmur aicd insertion site is clean Gastrointestinal: soft, non-tender, positive bowel sounds Musculoskeletal: no edema, pulses present Neurological: non-focal, moves all 4 limbs Psychiatric: A&O x 3 Dx/Plan (1) Acute respiratory failure with hypoxia and hypercarbia Code(s): J96.01 - ACUTE RESPIRATORY FAILURE WITH HYPOXIA; J96.02 - ACUTE RESPIRATORY FAILURE WITH HYPERCAPNIA Status: Resolved (2) COPD exacerbation Code(s): J44.1 - CHRONIC OBSTRUCTIVE PULMONARY DISEASE W (ACUTE) EXACERBATION Status: Resolved (3) CHF exacerbation Code(s): I50.9 - HEART FAILURE, UNSPECIFIED Status: Acute Qualifiers: Congestive heart failure type: systolic Qualified Code(s): I50.23 - Acute on chronic systolic (congestive) heart failure (4) CAD (coronary artery disease) Code(s): I25.10 - ATHSCL HEART DISEASE OF [place] CORONARY ARTERY W/O ANG PCTRS Status: Chronic Qualifiers: Coronary Disease-Associated Artery/Lesion type: bypass graft [place] vs. transplanted heart: [place] heart Associated angina: without angina Qualified Code(s): I25.810 - Atherosclerosis of coronary artery bypass graft(s) without angina pectoris (5) DM type 2 (diabetes mellitus, type 2) Status: Chronic Qualifiers: Diabetes mellitus complication status: with unspecified complications Diabetes mellitus keypunch operator insulin use: without alf use Qualified Code( s): E11.8 - Type 2 diabetes mellitus with unspecified complications (6) H/O: CVA (cerebrovascular accident) Code(s): Z86.73 - PRSNL HX OF TIA (TIA), AND CEREB INFRC W/O RESID DEFICITS Status: Chronic (7) HLD (hyperlipidemia) Code(s): E78.5 - HYPERLIPIDEMIA, UNSPECIFIED Status: Chronic Qualifiers: Hyperlipidemia type: unspecified Qualified Code(s): E78.5 - Hyperlipidemia , unspecified (8) HTN (hypertension) Code(s): I10 - ESSENTIAL (PRIMARY) HYPERTENSION Status: Chronic Qualifiers: Hypertension type: essential hypertension Qualified Code(s): I10 - Essential (primary) hypertension (9) Tobacco dependence Code(s): F17.200 - NICOTINE DEPENDENCE, UNSPECIFIED, UNCOMPLICATED Status: Chronic (10) Demand ischemia of myocardium Code(s): I24.8 - OTHER FORMS OF ACUTE ISCHEMIC HEART DISEASE Status: Acute - Plan had AICD placed yesterday -: may dc home if ok with EP -: hemostable * . Review of Systems - Medications/Allergies Allergies/Adverse Reactions: Allergies Allergy/AdvReac Type Severity Reaction Status Date / Time No Known Allergies Allergy Verified 09/23/17 15:31 Medications: Current Medications Acetaminophen (Tylenol) 650 mg PO Q4H PRN PRN Reason: Headache/Fever or Pain Last Admin: 09/26/17 00:33 Dose: 650 mg Acetaminophen/Codeine Phosphate (Tylenol #3) 1 tab PO Q4H PRN PRN Reason: Mild Pain (1-3) Acetaminophen/Codeine Phosphate (Tylenol #3) 2 tab PO Q4H PRN PRN Reason: Moderate Pain (4-6) Last Admin: 09/26/17 09:17 Dose: 2 tab Al Hydroxide/Mg Hydroxide (Maalox) 15 ml PO Q4H PRN PRN Reason: Heartburn or Indigestion Albuterol/Ipratropium (Duoneb) 3 ml NEB [id number] [facility] Last Admin: 09/26/17 06:58 Dose: 3 ml Aspirin (Aspirin) 325 mg PO DAILY [facility] Last Admin: 09/26/17 09:03 Dose: 325 mg Atorvastatin Calcium (Lipitor) 80 mg PO HS [facility] Last Admin: 09/25/17 20:11 Dose: 80 mg Bisacodyl (Dulcolax) 5 mg PO DAILYPRN PRN PRN Reason: CONSTIAPT Bisacodyl (Dulcolax) 10 mg [place] DAILYPRN PRN PRN Reason: Constipation Clopidogrel Bisulfate (Plavix) 75 mg PO DAILY [facility] Last Admin: 09/26/17 09:21 Dose: 75 mg Dextrose/Water (Dextrose 50%) 25 gm SLOW IVP PRN PRN PRN Reason: Hypoglycemia Diphenhydramine HCl (Benadryl) 25 mg PO Q6H PRN PRN Reason: Itching Docusate Sodium (Colace) 100 mg PO BID [facility] Last Admin: 09/26/17 09:04 Dose: 100 mg Enoxaparin Sodium (Lovenox) 40 mg SC 0900 [facility] Last Admin: 09/26/17 09:08 Dose: 40 mg Famotidine (Pepcid) 20 mg PO BID [facility] Last Admin: 09/26/17 09:21 Dose: 20 mg Fluticasone Propionate (Flonase Nasal [place]) 0 gm NASAL BID [facility] Last Admin: 09/26/17 05:34 Dose: 1 spr Furosemide (Lasix) 40 mg PO DAILY-[facility] Last Admin: 09/26/17 09:03 Dose: 40 mg Glipizide (Glucotrol) 5 mg PO BID-[facility] Last Admin: 09/26/17 09:04 Dose: 5 mg Glucagon (Glucagon) 1 mg IM PRN PRN PRN Reason: Hypoglycemia Guaifenesin/Dextromethorphan (Robitussin Dm) 15 ml PO Q4H PRN PRN Reason: Cough Hydralazine HCl (Apresoline) 10 mg SLOW IVP Q15MIN PRN PRN Reason: SBP > 160 OR DBP >100 Dextrose/Water (D5w) 1,000 mls @ 0 mls/hr IV .Q0M PRN; As Directed PRN Reason: Hypoglycemia Insulin Human Lispro (Humalog) 0 units SC .MODERATE SLIDING SC PRN PRN Reason: Moderate Correctional Scale Last Admin: 09/24/17 17:58 Dose: 4 unit Labetalol HCl (Normodyne) 10 mg SLOW IVP Q10MIN PRN PRN Reason: SBP > 160 OR DBP >100 Levofloxacin (Levaquin) 500 mg PO 0600 [facility] Last Admin: 09/26/17 05:34 Dose: 500 mg Methylprednisolone Sodium Succinate (Solu-Medrol) 20 mg IVP Q8HR [facility] Last Admin: 09/26/17 05:31 Dose: 20 mg Mometasone Furoate/Formoterol Fumar (Dulera 200 Mcg/5 Mcg Inhaler) 2 puff INH BID-RT [facility] Last Admin: 09/26/17 07:07 Dose: 2 puff Nitroglycerin (Nitrostat) 0.4 mg SL Q5MIN PRN PRN Reason: Chest Pain Ondansetron HCl (Zofran) 4 mg IVP Q6H PRN PRN Reason: Nausea/Vomiting Silver Sulfadiazine (Silvadene) 0 gm TOP Q12H PRN PRN Reason: Rash/Topical Irritation Sodium Chloride (Flush - Normal Saline) 10 ml IVF Q12HR [facility] Last Admin: 09/25/17 20:14 Dose: 10 ml Sodium Chloride (Flush - Normal Saline) 10 ml IVF PRN PRN PRN Reason: Saline Flush Last Admin: 09/26/17 05:32 Dose: 10 ml Temazepam (Restoril) 15 mg PO HSPRN PRN PRN Reason: Insomnia Tramadol HCl (Ultram) 50 mg PO Q4H PRN PRN Reason: FOR MODERATE PAIN 4-6 Last Admin: 09/26/17 05:34 Dose: 50 mg
--- NOTE | 2017-09-26 10:58 | PRG ---
DATE OF SERVICE: 09/26/2017 Mr. Stubbs has no complaints. He is tentatively scheduled to go home today. PHYSICAL EXAMINATION: VITAL SIGNS: He is afebrile, heart rate 70, respiratory rate 16, oximetry 98, blood pressure 152/72 . LUNGS: He is not wheezing. HEART: Regular rhythm. IMPRESSION: 1. Chronic obstructive pulmonary disease exacerbation. 2. Severe cardiomyopathy. It is my feeling that the COPD was the reason for the admission, medical noncompliance did not help. I will be happy to see him in followup. He should go home with a prednisone taper over a couple o f weeks and metered-dose inhalers. Symbicort would be fine or Dulera. I will switch him to prednis one in the event that liturgical music director do not feel he is ready for discharge.
[2017-09-26] MEDS: HumaLOG 300 UNITS/3 ML VIAL SC PRN (12:44)
[2017-09-26 17:02] VITALS: BP 137/58; TEMP 97.6
--- NOTE | 2017-09-26 19:57 | DIS ---
DATE OF ADMISSION: 09/23/2017 DATE OF DISCHARGE: 09/26/2017 DISCHARGE DISPOSITION: To home. PRIMARY DISCHARGE DIAGNOSES: 1. Acute respiratory failure with hypoxemia and hypercarbia. 2. Acute chronic obstructive pulmonary disease exacerbation. 3. Mild congestive heart failure exacerbation. 4. Coronary artery disease. 5. Diabetes mellitus type 2. 6. Cardiomyopathy. 7. History of cerebrovascular accident without residual defect. 8. Dyslipidemia. 9. Hypertension. 10. Tobacco dependence. 11. Demand ischemia. PROCEDURES DONE DURING HOSPITALIZATION: Echo with 2D Doppler done showed ejection fraction of 20% t o 25%, moderate mitral regurgitation. The patient has had AICD placed by Dr. Agustin Jacobson on 017. Patient has had indeterminate troponins with peaking upto 0.91. CK-MB 8.5. DISCHARGE MEDICATIONS: Albuterol inhaler q.6 hourly p.r.n., aspirin 325 mg p.o. daily, atorvastatin 80 mg p.o. at bedtime, Coreg 12.5 mg p.o. twice daily, Plavix 75 mg p.o. daily, Lasix 40 mg p.o. da favian, Motrin 400 mg p.o. three times daily p.r.n. for pain, Levaquin 500 mg p.o. daily for another 3 days, glipizide 5 mg p.o. twice daily, and prednisone tapering dose 5 mg p.o. daily for another 4 da ys. ALLERGIES: No known drug allergies. DISCHARGE PLAN: The patient to follow up with Dr. Urbano in 4 weeks. He also needs follow up with Meme Jacobson, contact center team lead as advised, and Dr. Teo Steve, new client banking services clerk as advised. BRIEF COURSE DURING HOSPITALIZATION: The patient initially got admitted on the 09/23/2017 with comp laints of shortness of breath and acute respiratory failure. He initially went to [facility] and had saturations of 83% on room air. He was placed on BiPAP and transferred here. He was admitted to [facility]. He was on IV steroids along with empiric antibiotics for COPD exacerbation along with gentle diureses for mild CHF exacerbation. He has had indeterminate troponin due to mild CHF exacerbation and demand ischemia. The patient also had consultation with Dr. Steve, his new client banking services clerk . He has known history of low ejection fraction and his 5/5 grafts were occluded. He had not follo wed up with Dr. Steve after his discharge from his prior hospitalization. In view of this, he has trejo d electrophysiology consultation with Dr. Agustin Jacobson. He has had AICD placed on 09/25/2017. He wi ll be shortly discharged home if cleared by all specialists including Dr. Agustin Jacobson and Dr. Urbano. The patient is ambulating in the room and is eating well. Please see a [id number]-tfoa [facility]. Mr. Enoc Ruiz has been counseled with regards to smoking c essation and medication compliance.
--- NOTE | 2017-09-26 22:12 | PRG ---
DATE OF SERVICE: 09/26/2017 ELECTROPHYSIOLOGY FOLLOWUP NOTE SUBJECTIVE: Mr. Stubbs seems to be doing well today, one day post ICD implant. OBJECTIVE DATA: VITAL SIGNS: Blood pressure is 143/80, heart rate 66, respirations 16, temperature 98 degrees Fahre nheit. GENERAL: He is alert and oriented man in no apparent distress. Negative physical exam. DATABASE: The chest x-ray shows no new findings. Interrogation of his device reveals a Medtronic single chamber ICD, battery voltage , pa rameters are 418 ohms, sensing 12.1 millivolts, capture threshold 0.5 with 0.4 milliseconds. CONCLUSION: 1. Adequately functioning single-chamber implantable cardioverter defibrillator one day post implan t. 2. The patient stable for discharge. 3. History of congestive heart failure with acute exacerbation, now resolved, standard heart failur e therapy. PLAN: Wound check in 2 weeks in our office and 1 week of antibiotics. Routine heart failure therap y as per Dr. Mando Valadez.
[2017-09-27] MEDS ORDERED: predniSONE 20 MG TAB PO SCH (08:00)
--- NOTE | 2017-09-27 08:29 | CON ---
DATE OF CONSULTATION: 09/24/2017 HISTORY: Mr. Stubbs is a 62-year-old male who has history of chronic systolic congestive heart failu re, dilated cardiomyopathy, LVEF was less than 35% after his coronary artery bypass grafting surgery . He was supposed to follow up for a review of his LVEF in 9 days, but he did not comply and now he is back with acute CHF exacerbation, LVEF of 20-25%, currently on this admission. He has history o f nonsustained ventricular tachycardia postop. His heart failure class is class 3 chronically. I examined patient in detail along with Rosalinda Marsha, nurse practitioner. For details, please see h er report. I agree with her findings. Our plan is to proceed with an EP study and ICD implantation . The procedure was detailed to the patient, the risks and benefits discussed. He understands and eve ling to proceed. We will schedule him for nearest date. Thank you again for allowing me to participate in the care of this patient.
== END 2017-09-26 19:04 | disposition home or self-care (01) | DRG 226 ==
LOC: ERS 07:18 → UNDOADMIN 11:58 → CCU 11:58 → IMCU/EMU 09-24 07:08 → 2NO 09-24 11:23
PROVIDERS: ADMIT Internal Medicine; ATTEND Internal Medicine
PROC: 0JH608Z Insertion of Defibrillator Generator into Chest Subcutaneous Tissue and Fascia, Open Approach (ICD-10-PCS; principal; 2017-09-23)
PROC: 02HK3KZ Insertion of Defibrillator Lead into Right Ventricle, Percutaneous Approach (ICD-10-PCS; 2017-09-23)
PROC: 5A09357 Assistance with Respiratory Ventilation, Less than 24 Consecutive Hours, Continuous Positive Airway Pressure (ICD-10-PCS; 2017-09-23)
PROC: 02583ZZ Destruction of Conduction Mechanism, Percutaneous Approach (ICD-10-PCS; 2017-09-25)
PROC: 4A023FZ Measurement of Cardiac Rhythm, Percutaneous Approach (ICD-10-PCS; 2017-09-25)
PROC: 4A0234Z Measurement of Cardiac Electrical Activity, Percutaneous Approach (ICD-10-PCS; 2017-09-25)
DX: I13.0 Hypertensive heart and chronic kidney disease with heart failure and stage 1 through stage 4 chronic kidney disease, or unspecified chronic kidney disease (principal); J96.01 Acute respiratory failure with hypoxia; J96.02 Acute respiratory failure with hypercapnia; I50.23 Acute on chronic systolic (congestive) heart failure; I24.8 Other forms of acute ischemic heart disease; J44.1 Chronic obstructive pulmonary disease with (acute) exacerbation; E11.22 Type 2 diabetes mellitus with diabetic chronic kidney disease; E66.01 Morbid (severe) obesity due to excess calories; I25.10 Atherosclerotic heart disease of native coronary artery without angina pectoris; E78.5 Hyperlipidemia, unspecified; F17.210 Nicotine dependence, cigarettes, uncomplicated; Z86.73 Personal history of transient ischemic attack (TIA), and cerebral infarction without residual deficits; Z95.1 Presence of aortocoronary bypass graft; I25.2 Old myocardial infarction; Z91.19 Patient's noncompliance with other medical treatment and regimen; Z82.49 Family history of ischemic heart disease and other diseases of the circulatory system; Z79.82 Long term (current) use of aspirin; I25.5 Ischemic cardiomyopathy; Z68.34 Body mass index [BMI] 34.0-34.9, adult; N18.3 Chronic kidney disease, stage 3 (moderate)
CPT/HCPCS: 33249; 36415; 36416; 71010; 76942; 80048; 82553; 82805; 84484; 85025; 87040; 87070; 87149; 87205; 93005; 93306; 93620; 93641; 93798; 94640; 94660; A4216; C1722; C1730; C1769; C1777; J0360; J1644; J1650; J1956; J2250; J2704; J2920; J3490; J7050; J7611; J7620

== ENCOUNTER 2018-08-31 15:39 | Inpatient (IN) | payer MEDICARE ==
[~2018-08-31 15:39] MED LIST: ISOVUE-370 76%-LOCM 1 ML ONE
[2018-08-31] MEDS ORDERED: Nitroglycerin 2% Ointment 1 INCH/1 GM Packet ONE (16:19)
--- NOTE | 2018-08-31 16:19 | CT ---
CT BRAIN NONCONTRAST: DATE: 08/31/18 TIME: 1545 HOURS HISTORY: 63-year-old male undergoing acute stroke. Dr. Perdomo reported the findings by telephone to Dr. Luque at 1558 hours on 08/31/18. COMPARISON: No prior brain CTs are available. There is a MRI from 09/07/15. FINDINGS: There are multiple areas of encephalomalacia and gliosis in the right cerebral hemisphere, involving cortical dietz matter and subcortical and deep white matter, mostly in the right frontal, and to a les ser degree right parietal, regions. These are consistent with multiple old infarctions. Some were old on the previous MRI of 09/07/15. Some were acute numerous tiny cortical infarctions on that previous MRI. Others have occurred some time after that previous MRI. Again noted is the old lacunar infarcti on of the left basal ganglia and another old lacunar infarction in the left cerebellar hemisphere. Th ere is no acute intra-axial or extra-axial hemorrhage. No mass effect, midline shift, or extra-axial fluid collection. No acute calvarial fracture. IMPRESSION: 1. Multiple old infarctions in the right middle cerebral artery territory. 2. Tiny old lacunar infarctions in the left cerebellum and left basal ganglia. 3. Moderate chronic ischemic white matter changes. 4. No acute intracranial mass effect or hemorrhage. DEREK R CODE CR. POS: [facility]
[2018-08-31 16:39] LABS: #Eosinphils 0.2 thou/uL (0.0-0.7); #Lymphocytes 1.5 thou/uL (1.20-3.40); #Monocytes 0.7 thou/uL (0.11-0.59); #Neutrophils 6.9 thou/uL (1.40-6.50); %Basophils 0.4 % (0.0-1.0); %Eosinophils 1.9 % (0.0-10.0); %Lymphocytes 15.9 % (21.0-51.0); %Monocytes 7.1 % (0.0-10.0); %Neutrophils 74.6 % (42.0-75.0); Hemoglobin 17.7 g/dL (14.0-18.0); Mean Corpuscular HGB CONC 32.8 g/dL (32.0-36.0); Mean Corpuscular Hemoglobin 30.6 pg (27.0-31.0); Mean Corpuscular Volume 93.1 fL (78.0-98.0); Mean Platelet Volume 7.4 fL (7.4-10.4); Platelet Count 189 thou/uL (130-400); RBC Distribution Width 12.2 % (11.5-14.5); Red Blood Cell (RBC) Count 5.79 mill/uL (4.70-6.10); White Blood Cell (WBC) Count 9.2 thou/uL (4.8-10.8)
[2018-08-31 16:45] LABS: PTT 35.6 SEC (22.9-36.1); Prothrombin Time 13.5 SEC (12.0-14.7)
--- NOTE | 2018-08-31 16:49 | CT ---
CT ANGIOGRAM OF THE NECK WITH CONTRAST CT ANGIOGRAM OF THE HEAD WITH CONTRAST: Date: 08-31-18 Time: 3:52 p.m. History: 63-year-old male with acute stroke, left sided facial droop, and dysarthria. Technique: IV contrast injected. Arterial bolus chasing technique. Scan from aortopulmonic window to vertex of head. Coronal and sagittal 3D MIP reconstructions. FINDINGS: Deep to the right sternocleidomastoid muscle and in a retrojugular location, there is a 2.5 x 2.5 x 4 .5 cm low density mass with enhancement of small portions of it, highly suspicious for malignant cyst ic metastatic lymph node. There are multiple mildly enlarged mediastinal lymph nodes, nonspecific. There is noncalcified mural thickening of the proximal portions of the right common carotid artery, c ausing at least moderate stenosis in some areas. Calcified and noncalcified plaque at right carotid b ulb. The right internal carotid artery is chronically occluded at its origin. Heavily calcified plaque at origin of right vertebral artery, degree of stenosis unknown. The rest of the cervical right vertebral artery is not significantly stenotic. Intracranial portion right verteb ral artery is small in caliber diffusely, and has atherosclerotic calcification. The contralateral left vertebral artery is dominant. Its cervical portion is patent. Intracranial por tion is heavily calcified. No severe stenosis of left common carotid artery, brachiocephalic artery, or left subclavian artery. Atherosclerotic plaque at origin of left internal carotid causing stenosis for the degree of which is difficult to determine because of patient motion artifact. At one point, it is possibly severely og notic proximally (Axial image 130 of 302, Series 2). The rest of the left cervical internal carotid i s very tortuous. Intracranially, the right carotid siphon is occluded. The bilateral A2 segments and bilateral A1 segm ents of the anterior cerebral arteries are patent. There is probably an anterior communicating artery . The M1 segment of the right middle cerebral artery is probably supplied by the A1 segment via anter ior communicating artery. Left M1 segment is patent and normal in caliber. Basilar artery, bilateral posterior cerebral arteries and bilateral superior cerebellar arteries are visualized. IMPRESSION: 1. right level II pathologic Cystic lymph node, highly suspicious for malignant metastatic lymphadeno ashley. Recommend otolaryngology consultation. 2. Atherosclerosis and stenosis of multiple vessels, for which many are difficult to evaluate the deg ree of stenosis. 3. Chronic occlusion of right internal carotid artery. 4. No acute occlusion of [place] arteries identified. 5. Probable high grade stenosis of proximal left internal carotid. POS: [facility]
[2018-08-31] MEDS ORDERED: Acetaminophen 325 MG TAB PO PRN (16:56)
[2018-08-31] MEDS ORDERED: Enalaprilat Dihydrate 1.25 MG/ML VIAL SLOW IVP PRN (16:56)
[2018-08-31] MEDS ORDERED: hydrALAZINE 20 MG/ML VIAL SLOW IVP PRN (16:56)
[2018-08-31] MEDS ORDERED: Bisacodyl 5 MG TAB PO PRN (16:56)
[2018-08-31] MEDS ORDERED: Labetalol HCl 100 MG/20 ML VIAL SLOW IVP PRN (16:56)
[2018-08-31 16:59] LABS: ALT (SGPT) 23 U/L (8-55); AST (SGOT) 17 U/L (5-34); Albumin 4.3 g/dL (3.4-4.8); Alkaline Phosphatase 90 U/L (40-150); Anion Gap 15 mmol/L (10-20); BUN (Urea Nitrogen) 18 mg/dL (8.4-25.7); Bilirubin, Total 0.5 mg/dL (0.2-1.2); CK (CPK) 74 U/L (30-200); Calc. Creatinine Clearance 0 mL/min (70-130); Calcium 9.7 mg/dL (7.8-10.44); Carbon Dioxide 21 mmol/L (23-31); Chloride 106 mmol/L (98-107); Estimated GFR-MDRD 57; Globulin 3.1 g/dL (2.4-3.5); Glucose 203 mg/dL (80-115); Potassium 4.5 mmol/L (3.5-5.1); Protein, Total 7.4 g/dL (5.8-8.1); Sodium 137 mmol/L (136-145)
[2018-08-31 17:02] LABS: CKMB 1.7 ng/mL (0-6.6); Troponin I 0.015 ng/mL (< 0.028)
[2018-08-31] MEDS ORDERED: Aspirin 325 MG TAB ONE (17:11)
[2018-08-31 18:39] VITALS: BMI 34.8
--- NOTE | 2018-08-31 20:40 | HP ---
PRIMARY CARE PROVIDER: Tavo Segovia M.D. CHIEF COMPLAINT: Slurred speech. HISTORY OF PRESENT ILLNESS: Mr. Stubbs is a pleasant 63-year-old gentleman, who was seen at [facility] on 08/31/2018. He reports that around 2:30 p.m., he was watching television while sitting down. His son noticed enrique t he had slurred speech. He denies any chest pain or shortness of breath. He also reportedly had le ft-sided facial droop. It is unclear as to the duration of the facial droop. He denies any nausea o r vomiting. He denies any abdominal pain. He denies any other motor or sensory symptoms. He denies any vision changes. He denies any difficulty swallowing. He denies any difficulty walking. He den ies any weakness in his upper extremities. He came to the emergency room because of concern regarding slurred speech. The patient reports that he ran out of his blood pressure medications approximately a month ago and amaury singh has not been taking them. He also reports that he ran out of Plavix 3 weeks ago and has not been t aking Plavix for the last 3 weeks. REVIEW OF SYSTEMS: All other systems reviewed and found to be negative. PAST MEDICAL HISTORY: Severe coronary artery disease needing a redo bypass once his ejection fractio n improved, congestive heart failure with systolic dysfunction, hypertension, diabetes mellitus type 2, dyslipidemia, cerebrovascular accident. PAST SURGICAL HISTORY: Appendectomy, coronary artery bypass graft, and ICD placement. ALLERGIES: No known drug allergies. CURRENT MEDICATIONS: Aspirin 81 mg daily, metformin 500 mg daily, pravastatin 40 mg daily. FAMILY HISTORY: Mother of breast cancer and complications at age of 82 years. Father had coron jim artery disease and valve replacement. SOCIAL HISTORY: Patient smokes 3-4 cigarettes a day. He denies any alcohol use or recreational drug use. PHYSICAL EXAMINATION: GENERAL: Mr. Stubbs is awake and alert, not in acute distress. VITAL SIGNS: Blood pressure is 208/151, pulse 90, respiratory rate 20, and oxygen saturation 98% on 2 liters of oxygen. He is afebrile. EYES: No scleral icterus. No conjunctival pallor. ENT: Moist mucosal membranes, no oropharyngeal erythema or exudates. NECK: Supple, nontender, normal range of movement. Trachea is midline. RESPIRATORY: Accessory muscles of breathing are not active. Chest wall movements are symmetric bila terally. LUNGS: Clear to auscultation without wheeze, rhonchi or crepitations. CARDIOVASCULAR: S1 and S2 are heard, regular. Peripheral pulses palpable. No carotid bruit, no per icardial rub. ABDOMEN: Soft, distended, nontender, bowel sounds are heard, no hepatomegaly, no splenomegaly. NEUROLOGIC: Speech is slurred. He has mild left-sided facial droop. Otherwise, cranial nerves II-X II are intact. There are no focal motor or sensory deficits. Deep tendon reflexes are 2+, plantar reflexes downgoing bilaterally. Cerebellar: Unremarkable. MUSCULOSKELETAL: Power is 5/5 in all 4 extremities. SKIN: No rashes or subcutaneous nodules. LYMPHATIC: No cervical lymphadenopathy. PSYCHIATRIC: Normal mood, normal affect, patient is oriented to person and place, not to time. Mr. Stubbs's labs and investigations were reviewed. I reviewed his electrocardiogram, which shows nor mal sinus rhythm, no ST changes to suggest an acute coronary syndrome. I also reviewed his noncontra st CT scan of the brain, which shows old infarcts, but no acute infarct or hemorrhage. He had a norm al white count, normal hemoglobin and normal platelet count, comprehensive metabolic profile, INR, C K level and troponin I are pending. ASSESSMENT AND PLAN: Mr. Stubbs is a pleasant 63-year-old gentleman who was seen at [facility] on 08/31/2018. His problem list includes: 1. Acute ischemic cerebrovascular accident suspected. There is no evidence of acute infarct on CT s can. The patient will need an MRI to further evaluate. However, he cannot have an MRI because of IC D. He will be admitted to a compliance monitor and I will continue him on aspirin and Plavix. As men tioned, he has been noncompliant with his Plavix over the last few weeks. 2. Diabetes mellitus type 2. We will continue him on metformin and start Accu-Cheks and insulin sli ding scale. 3. Coronary artery disease. Patient denies any chest pain. We will follow up on his troponin I. 4. Dyslipidemia: We will continue statin. 5. Hypertensive urgency: Patient is also presenting with hypertensive urgency. This is most likely secondary to his noncompliance with his blood pressure medications. We will start him on p.r.n. ant ihypertensives at this time as well as scheduled antihypertensives. Many thanks for allowing me to participate in your patient's care. Please feel free to contact me wi th any questions or concerns. LEVEL OF RISK: High. LEVEL OF COMPLEXITY: High.
[2018-08-31] MEDS: Nicotine 14 MG PATCH TD SCH (20:59)
[2018-08-31] MEDS: Atorvastatin Calcium 10 MG TAB PO SCH (20:59)
[2018-09-01 03:45] LABS: Anion Gap 12 mmol/L (10-20); BUN (Urea Nitrogen) 18 mg/dL (8.4-25.7); Calc. Creatinine Clearance 104 mL/min (70-130); Calcium 9.6 mg/dL (7.8-10.44); Carbon Dioxide 22 mmol/L (23-31); Cardiac Risk 3.8 (Less than 4.5); Chloride 108 mmol/L (98-107); Cholesterol 123 mg/dl (< 200 Desired); Estimated GFR-MDRD 61; Glucose 163 mg/dL (80-115); HDL Cholesterol 32 mg/dL (>60 Neg Risk); LDL Cholesterol, Calculated 62 mg/dL; Potassium 3.9 mmol/L (3.5-5.1); Sodium 138 mmol/L (136-145); Triglycerides 147 mg/dL (Less than 150)
[2018-09-01 04:30] LABS: #Eosinphils 0.2 thou/uL (0.0-0.7); #Lymphocytes 2.3 thou/uL (1.20-3.40); #Monocytes 0.9 thou/uL (0.11-0.59); #Neutrophils 5.3 thou/uL (1.40-6.50); %Basophils 0.3 % (0.0-1.0); %Eosinophils 2.5 % (0.0-10.0); %Lymphocytes 26.5 % (21.0-51.0); %Monocytes 9.9 % (0.0-10.0); %Neutrophils 60.9 % (42.0-75.0); Mean Corpuscular HGB CONC 32.5 g/dL (32.0-36.0); Mean Corpuscular Hemoglobin 30.1 pg (27.0-31.0); Mean Corpuscular Volume 92.6 fL (78.0-98.0); Platelet Count 176 thou/uL (130-400); RBC Distribution Width 12.1 % (11.5-14.5); Red Blood Cell (RBC) Count 5.31 mill/uL (4.70-6.10); White Blood Cell (WBC) Count 8.8 thou/uL (4.8-10.8)
[2018-09-01] MEDS: Carvedilol 6.25 MG TAB PO SCH ×2 (09:42→17:00)
[2018-09-01] MEDS: Clopidogrel Bisulfate 75 MG TAB PO SCH (09:42)
[2018-09-01] MEDS: Aspirin 325 mg Enteric Coated Tablet PO SCH (09:42)
[2018-09-01] MEDS: Enoxaparin Sodium 40 MG/0.4 ML SYRINGE SC SCH (09:42)
[2018-09-01] MEDS: Insulin Regular 300 UNITS/3 ML VIAL SC PRN ×2 (11:15→17:08)
[2018-09-01] MEDS ORDERED: Fluticasone Propionate Nasal Spray 16 gm Bottle NASAL SCH (12:00)
--- NOTE | 2018-09-01 13:28 | PDOC.PN ---
- Subjective Encounter Start Date: 09/01/18 Encounter Start Time: 07:00 Pt seen for followup re: TIA. Feels better. Speech better. No fevers or chills. - Objective MAR Reviewed: Yes Vital Signs & Weight: Vital Signs (12 hours) Temp Pulse Pulse Pulse Resp BP BP 09/01/18 12:00 97.8 F 70 20 09/01/18 10:48 67 16 09/01/18 09:42 132/93 H 09/01/18 09:20 75 80 163/95 H 09/01/18 09:15 163/95 H 09/01/18 07:49 97.4 F L 69 20 09/01/18 07:39 68 16 09/01/18 04:00 97.5 F L 67 20 BP BP Pulse Ox 09/01/18 12:00 144/86 H 95 09/01/18 10:48 96 09/01/18 09:42 09/01/18 09:20 186/87 H 09/01/18 09:15 186/87 H 09/01/18 07:49 132/93 H 96 09/01/18 07:39 96 09/01/18 04:00 145/84 H 98 Weight Weight 257 lb I&O: 08/31/18 09/01/18 09/02/18 06:59 06:59 06:59 Intake Total 600 Balance 600 Result Diagrams: 09/01/18 03:54 09/01/18 02:56 Additional Labs: Accuchecks 09/01/18 09/01/18 08/31/18 10:46 05:54 21:10 POC Glucose 203 H 152 H 208 H 08/31/18 15:42 POC Glucose 184 H EKG Reviewed by me: Yes (Tele: NSR) Phys Exam - Physical Examination Obese HEENT: moist MMs, sclera anicteric, oral pharynx no lesions, 2+ tonsils Neck: no nodes, no JVD, supple, full ROM R neck mass Respiratory: no wheezing, no rales, no rhonchi, clear to auscultation bilateral Cardiovascular: RRR, no rub S1, S2 Gastrointestinal: soft, non-tender, no distention, positive bowel sounds Neurological: moves all 4 limbs L facial droop Psychiatric: normal affect Deviation from normal: Oriented to person and place, not to time Dx/Plan (1) TIA (transient ischemic attack) Code(s): G45.9 - TRANSIENT CEREBRAL ISCHEMIC ATTACK, UNSPECIFIED Status: Acute Comment: continue aspirin, Plavix (2) Hypertensive urgency Code(s): I16.0 - HYPERTENSIVE URGENCY Status: Acute Comment: Blood pressure improved (3) Carotid stenosis Code(s): I65.29 - OCCLUSION AND STENOSIS OF UNSPECIFIED CAROTID ARTERY Status : Acute Comment: consult CV surgery for opinion (4) Neck mass Code(s): R22.1 - LOCALIZED SWELLING, MASS AND LUMP, NECK Status: Acute Comment: consult ENT, concern re: malignancy (5) CAD (coronary artery disease) Code(s): I25.10 - ATHSCL HEART DISEASE OF [place] CORONARY ARTERY W/O ANG PCTRS Status: Chronic Qualifiers: Coronary Disease-Associated Artery/Lesion type: bypass graft [place] vs. transplanted heart: [place] heart Associated angina: without angina Qualified Code(s): I25.810 - Atherosclerosis of coronary artery bypass graft(s) without angina pectoris Comment: stable (6) DM type 2 (diabetes mellitus, type 2) Status: Chronic Qualifiers: Diabetes mellitus nursing home insulin use: without general teller use Diabetes mellitus complication status: with unspecified complications Qualified Code(s) : E11.8 - Type 2 diabetes mellitus with unspecified complications Comment: continue accuchecks, insulin sliding scale (7) HLD (hyperlipidemia) Code(s): E78.5 - HYPERLIPIDEMIA, UNSPECIFIED Status: Chronic Qualifiers: Hyperlipidemia type: unspecified Qualified Code(s): E78.5 - Hyperlipidemia , unspecified Comment: continue statin (8) Tobacco dependence Code(s): F17.200 - NICOTINE DEPENDENCE, UNSPECIFIED, UNCOMPLICATED Status: Chronic Comment: continue nicotine patch - Plan * . Review of Systems - Review of Systems Constitutional: negative: fever, chills, sweats, weakness, malaise Respiratory: negative: Cough, Shortness of Breath, SOB with Excertion, Pleuritic Pain, Wheezing Cardiovascular: negative: chest pain, palpitations, orthopnea, paroxysmal nocturnal dyspnea, edema, light headedness Gastrointestinal: negative: Nausea, Vomiting, Abdominal Pain, Diarrhea, Constipation, Melena, Hematochezia Genitourinary: negative: Dysuria, Frequency, Incontinence, Hematuria, Retention Neurological: Change in Speech - Medications/Allergies Allergies/Adverse Reactions: Allergies Allergy/AdvReac Type Severity Reaction Status Date / Time No Known Allergies Allergy Verified 09/23/17 15:31 Medications: Current Medications Acetaminophen (Tylenol) 650 mg PO Q4H PRN PRN Reason: Headache/Fever or Pain Last Admin: 08/31/18 23:45 Dose: 650 mg Albuterol/Ipratropium (Duoneb) 3 ml NEB Q4H PRN PRN Reason: Dyspnea/Wheezing/SOB Last Admin: 09/01/18 10:48 Dose: 3 ml Aspirin (Ecotrin) 325 mg PO DAILY [facility] Last Admin: 09/01/18 09:42 Dose: 325 mg Atorvastatin Calcium (Lipitor) 10 mg PO HS [facility] Last Admin: 08/31/18 20:59 Dose: 10 mg Bisacodyl (Dulcolax) 10 mg PO DAILYPRN PRN PRN Reason: Constipation Carvedilol (Coreg) 12.5 mg PO BID-[facility] Last Admin: 09/01/18 09:42 Dose: 12.5 mg Clopidogrel Bisulfate (Plavix) 75 mg PO DAILY [facility] Last Admin: 09/01/18 09:42 Dose: 75 mg Enalaprilat (Vasotec) 1.25 mg SLOW IVP Q6H PRN PRN Reason: BP > 220/110 Enoxaparin Sodium (Lovenox) 40 mg SC 0900 [facility] Last Admin: 09/01/18 09:42 Dose: 40 mg Fluticasone Propionate (Flonase Nasal [place]) 0 gm NASAL BID [facility] Fluticasone Propionate (Flonase Nasal [place]) 0 gm NASAL NOW [facility] Stop: 09/01/18 14:00 Last Admin: 09/01/18 12:56 Dose: 1 spr Hydralazine HCl (Apresoline) 10 mg SLOW IVP Q4H PRN PRN Reason: BP > 220/110 Insulin Human Regular (Humulin R) 0 units SC .MODERATE SLIDING SC PRN PRN Reason: Moderate Correctional Scale Last Admin: 09/01/18 11:15 Dose: 4 unit Labetalol HCl (Normodyne) 20 mg SLOW IVP Q6H PRN PRN Reason: BP > 220/110 Nicotine (Nicoderm Patch) 14 mg TD Q24HR [facility] Last Admin: 08/31/18 20:59 Dose: 14 mg Sodium Chloride (Flush - Normal Saline) 10 ml IVF PRN PRN PRN Reason: Saline Flush
[2018-09-01] MEDS ORDERED: Lidocaine 1% PF 5 ML VIAL ONE (14:55)
[2018-09-01] MEDS ORDERED: Sodium Bicarbonate 2.5 MEQ/5 ML VIAL ONE (14:55)
--- NOTE | 2018-09-01 16:24 | RAD ---
MODIFIED BARIUM WITH SPEECH THERPAIST: HISTORY: A 63-year-old male with dysphagia following a cerebral infarction, I69.391. FINDINGS: There is delayed oral phase. No residue, penetration, aspiration, or delayed pharyngeal phase of swa llowing, with pudding, thin liquid by spoon, thin liquid by cup, and pill. There is penetration seen during straw administration of thin liquid, followed by throat clearing. IMPRESSION: 1. Penetration during straw administration of thin liquid. 2. Delayed oral phase. 3. No other abnormality identified. POS: [facility]
[2018-09-01] MEDS: Nicotine 14 MG PATCH TD SCH (17:00)
[2018-09-01] MEDS ORDERED: Furosemide 40 MG/4 ML VIAL SLOW IVP SCH (17:15)
--- NOTE | 2018-09-01 17:27 | ULT ---
ULTRASOUND GUIDED FINE NEEDLE ASPIRATION: INDICATIONS: Cystic mass within the right aspect of the neck. Concern for malignancy. TECHNIQUE: Informed consent was obtained. Pre-procedure ultrasound images were obtained of the cystic mass. e site overlying this region was prepped and draped in the usual sterile fashion. Buffered 1% Lidoca ine was administered to the overlying subcutaneous tissues and the overlying sternocleidomastoid musc le. An attempt was made to obtain a 20 gauge core biopsy specimen of the lesion; however, the 20 gau ge core biopsy needle could not be guided through the sternocleidomastoid effectively and safely to [facility] level of the lesion. An 18 gauge spinal needle was then guided down to the lesion, and two separa te FNA samples were obtained (one for RPMI solution and one for cytolyte solution). Dr. Rivas of [facility] pathology department was onsite to verify adequacy of tissue sampling. Post procedure ultrasound demonstrated no significant perilesional hematoma. IMPRESSION: Successful ultrasound guided fine needle aspiration of the partially cystic, enlarged lymph node, pos terior to the right sternocleidomastoid muscle. POS: [facility]
--- NOTE | 2018-09-01 17:57 | RAD ---
FRONTAL VIEW CHEST SERIES: INDICATIONS: Short of breath. COMPARISON: 09/23/2017 TECHNIQUE: Two views provided. FINDINGS: The cardiac silhouette is prominent, as is the pulmonary vasculature, with interstitial prominence bi laterally, more notable on the left. There is a left subclavian approach AICD and evidence of a prio r sternotomy. IMPRESSION: Evidence of congestive heart failure with edema. POS: [facility]
[2018-09-01] MEDS: Fluticasone Propionate Nasal Spray 16 gm Bottle NASAL SCH (21:12)
[2018-09-01] MEDS: Atorvastatin Calcium 10 MG TAB PO SCH (21:12)
--- NOTE | 2018-09-01 23:53 | CON ---
DATE OF CONSULTATION: 09/01/2018 HISTORY OF PRESENT ILLNESS: Mr. Stubbs is a 63-year-old gentleman who has a longstanding history of c oronary artery disease, congestive heart failure, COPD, tobacco and alcohol abuse, previous cerebrova scular accidents who presented with an acute speech difficulty and left facial droop. This has since resolved. He is currently having trouble with his breathing and congestive failure/COPD exacerbatio n. This is being treated by Dr. Taylor. As part of his stroke workup, he had a CT angiogram of his neck. This revealed a chronically occlude d right internal carotid artery -- this was seen back in 2014 on ultrasound. The left carotid on CT angiogram is approximately 70% stenosed. I have been asked to see him in regard to his stenosis. Of note, on ultrasound and CT of the neck, they noted a right neck mass, which has since been percutane ously biopsied. This was present on ultrasound in 2014. PAST MEDICAL HISTORY: 1. Congestive heart failure. 2. Coronary artery disease. 3. Status post pacemaker placement. 4. Chronic obstructive pulmonary disease. 5. Hypertension. 6. Diabetes mellitus. 7. Dyslipidemia. 8. Cardiomyopathy. 9. Tobacco and alcohol abuse. PAST SURGICAL HISTORY: 1. Previous coronary artery bypass grafting -- details were unknown. 2. ICD placement. 3. Appendectomy. CURRENT MEDICATIONS: 1. Aspirin 81 mg every day. 2. Metformin 500 mg every day. 3. Pravastatin 40 mg every day. SOCIAL HISTORY: He smokes at home. He does not use any alcohol or other drugs according to him, alt huber he has significant physical exam findings of chronic alcohol abuse. PHYSICAL EXAMINATION: GENERAL: This is a moderately obese gentleman, short of breath and in the stroke unit. VITAL SIGNS: Height 6 feet, weight 257 pounds, BSA is 2.43. His temperature is 97.9, pulse is 66 an d regular, blood pressure 174/93. HEENT: He has a large bulbous rosacea. Nose multiple telangiectasias. NECK: Supple. He has recently had biopsy of his right neck mass. He has no carotid bruit. CHEST: Has some scattered rhonchi. HEART: Rhythm is regular. There are no murmurs. The sternum has healed nicely. ABDOMEN: Soft and nontender. EXTREMITIES: There is mild edema bilaterally below the knees. ASSESSMENT AND PLAN: Acute cerebrovascular accident with physical exam findings affecting his speech and left face, which has since resolved. He has been placed on aspirin and Plavix. Stroke workup i ncluded a CT angiogram revealing a chronically occluded right internal carotid artery and greater enrique n 70% stenosis of the left internal carotid artery. Unfortunately, the patient's heart and pulmonary status is such that he is not really a candidate acutely, nor probably in the near future for genera l anesthetic for his carotid artery. There is no way he can lay flat for a carotid stent for any per iod of time either without general anesthesia. I would recommend he be maintained on aspirin and Francisco vix and continue to treat his other medical problems as seen fit. I will follow with you.
--- NOTE | 2018-09-02 02:07 | PRG ---
DATE OF SERVICE: 09/01/2018 SUBJECTIVE: Consult for an inpatient for the CT scan that found a level 2 lymph node in the right ne ck. Patient denies any difficulty swallowing. There is no pain. He admits to significant smoking h istory. He does not have tonsils. He states they were removed. OBJECTIVE: GENERAL: Patient is well-developed, well-nourished. He is in no acute distress. VITAL SIGNS: Stable at time of exam. HEENT: Visual examination of the oral region revealed no masses or lesions. Tonsils were obviously absent secondary to tonsillectomy. A flex scope was performed looking through the entire nasopharyng eal region, there were no evidences of mass within either the nasal or pharynx regions at base of ton toni or anywhere near the larynx or vocal cords or esophagus. ASSESSMENT: Level 2 neck mass. PLAN: An ultrasound, fine needle aspiration has been ordered. Dr. Ley to follow up on Saturday, pending results of FNA.
[2018-09-02 04:30] LABS: #Basophils 0.1 thou/uL (0.0-0.2); #Eosinphils 0.2 thou/uL (0.0-0.7); #Lymphocytes 2.1 thou/uL (1.20-3.40); #Neutrophils 5.9 thou/uL (1.40-6.50); %Basophils 0.7 % (0.0-1.0); %Eosinophils 2.6 % (0.0-10.0); %Lymphocytes 22.4 % (21.0-51.0); %Monocytes 10.3 % (0.0-10.0); %Neutrophils 64.1 % (42.0-75.0); Mean Corpuscular HGB CONC 32.8 g/dL (32.0-36.0); Mean Corpuscular Hemoglobin 30.2 pg (27.0-31.0); Mean Corpuscular Volume 92.1 fL (78.0-98.0); Mean Platelet Volume 7.9 fL (7.4-10.4); Platelet Count 193 thou/uL (130-400); RBC Distribution Width 12.2 % (11.5-14.5); Red Blood Cell (RBC) Count 5.62 mill/uL (4.70-6.10); White Blood Cell (WBC) Count 9.2 thou/uL (4.8-10.8)
[2018-09-02 04:46] LABS: Anion Gap 15 mmol/L (10-20); BUN (Urea Nitrogen) 15 mg/dL (8.4-25.7); Calc. Creatinine Clearance 113 mL/min (70-130); Calcium 9.7 mg/dL (7.8-10.44); Carbon Dioxide 20 mmol/L (23-31); Chloride 106 mmol/L (98-107); Estimated GFR-MDRD 66; Glucose 144 mg/dL (80-115); Potassium 3.9 mmol/L (3.5-5.1); Sodium 137 mmol/L (136-145)
[2018-09-02] MEDS: Furosemide 40 MG/4 ML VIAL SLOW IVP SCH ×2 (05:42→14:10)
[2018-09-02] MEDS: Insulin Regular 300 UNITS/3 ML VIAL SC PRN ×2 (06:41→11:06)
[2018-09-02] MEDS: Fluticasone Propionate Nasal Spray 16 gm Bottle NASAL SCH ×2 (08:48→21:24)
[2018-09-02] MEDS: Enoxaparin Sodium 40 MG/0.4 ML SYRINGE SC SCH (08:49)
[2018-09-02] MEDS: Clopidogrel Bisulfate 75 MG TAB PO SCH (08:49)
[2018-09-02] MEDS: Aspirin 325 mg Enteric Coated Tablet PO SCH (08:50)
[2018-09-02] MEDS: Carvedilol 6.25 MG TAB PO SCH ×2 (08:50→16:39)
--- NOTE | 2018-09-02 13:09 | PDOC.PN ---
- Subjective Encounter Start Date: 09/02/18 Encounter Start Time: 07:20 Pt sen for followup re: systolic CHF exacerbation. Feels better. Has SOBOE, orthopnea. - Objective MAR Reviewed: Yes Vital Signs & Weight: Vital Signs (12 hours) Temp Pulse Resp BP BP Pulse Ox 09/02/18 11:35 97.6 F 59 L 20 116/55 L 97 09/02/18 10:31 68 16 90 L 09/02/18 08:50 110/53 L 09/02/18 07:40 99 09/02/18 07:35 97.4 F L 69 20 110/53 L 92 L 09/02/18 06:34 98 09/02/18 06:32 70 16 95 09/02/18 04:00 97.6 F 73 18 162/94 H 95 Weight Weight 257 lb I&O: 09/01/18 09/02/18 09/03/18 06:59 06:59 06:59 Intake Total 900 564 Output Total 50 700 Balance 850 -136 Result Diagrams: 09/03/18 04:18 09/03/18 04:18 Additional Labs: Accuchecks 09/02/18 09/02/18 09/01/18 10:53 06:19 20:58 POC Glucose 159 H 179 H 150 H 09/01/18 16:40 POC Glucose 167 H EKG Reviewed by me: Yes (Tele: NSR) Phys Exam - Physical Examination Constitutional: NAD HEENT: moist MMs Neck: supple Jorgito crackles Cardiovascular: RRR Gastrointestinal: soft Neurological: non-focal, moves all 4 limbs Psychiatric: normal affect Dx/Plan (1) Acute on chronic systolic ACC/AHA stage C congestive heart failure Code(s): I50.23 - ACUTE ON CHRONIC SYSTOLIC (CONGESTIVE) HEART FAILURE Status : Acute Comment: continue IV furosemide (2) TIA (transient ischemic attack) Code(s): G45.9 - TRANSIENT CEREBRAL ISCHEMIC ATTACK, UNSPECIFIED Status: Acute Comment: on aspirin and Plavix. 2D echo report pending. (3) Carotid stenosis Code(s): I65.29 - OCCLUSION AND STENOSIS OF UNSPECIFIED CAROTID ARTERY Status : Acute Comment: pt needs to have other medical problems optimized before he can have surgery (4) Neck mass Code(s): R22.1 - LOCALIZED SWELLING, MASS AND LUMP, NECK Status: Acute Comment: await path report (5) CAD (coronary artery disease) Code(s): I25.10 - ATHSCL HEART DISEASE OF [place] CORONARY ARTERY W/O ANG PCTRS Status: Chronic Qualifiers: Coronary Disease-Associated Artery/Lesion type: bypass graft [place] vs. transplanted heart: [place] heart Associated angina: without angina Qualified Code(s): I25.810 - Atherosclerosis of coronary artery bypass graft(s) without angina pectoris Comment: stable (6) DM type 2 (diabetes mellitus, type 2) Status: Chronic Qualifiers: Diabetes mellitus senior living insulin use: without senior living use Diabetes mellitus complication status: with unspecified complications Qualified Code(s) : E11.8 - Type 2 diabetes mellitus with unspecified complications Comment: continue accuchecks, insulin sliding scale (7) HLD (hyperlipidemia) Code(s): E78.5 - HYPERLIPIDEMIA, UNSPECIFIED Status: Chronic Qualifiers: Hyperlipidemia type: unspecified Qualified Code(s): E78.5 - Hyperlipidemia , unspecified Comment: statin (8) Tobacco dependence Code(s): F17.200 - NICOTINE DEPENDENCE, UNSPECIFIED, UNCOMPLICATED Status: Chronic Comment: nicotine patch (9) Hypertensive urgency Code(s): I16.0 - HYPERTENSIVE URGENCY Status: Resolved - Plan * . Review of Systems - Review of Systems Respiratory: SOB with Excertion. negative: Cough, Shortness of Breath, Pleuritic Pain, Wheezing Cardiovascular: orthopnea. negative: chest pain, palpitations, paroxysmal nocturnal dyspnea, edema, light headedness - Medications/Allergies Allergies/Adverse Reactions: Allergies Allergy/AdvReac Type Severity Reaction Status Date / Time No Known Allergies Allergy Verified 09/23/17 15:31 Medications: Current Medications Acetaminophen (Tylenol) 650 mg PO Q4H PRN PRN Reason: Headache/Fever or Pain Last Admin: 08/31/18 23:45 Dose: 650 mg Albuterol/Ipratropium (Duoneb) 3 ml NEB Q4H PRN PRN Reason: Dyspnea/Wheezing/SOB Last Admin: 09/02/18 10:31 Dose: 3 ml Aspirin (Ecotrin) 325 mg PO DAILY [facility] Last Admin: 09/02/18 08:50 Dose: 325 mg Atorvastatin Calcium (Lipitor) 10 mg PO HS [facility] Last Admin: 09/01/18 21:12 Dose: 10 mg Bisacodyl (Dulcolax) 10 mg PO DAILYPRN PRN PRN Reason: Constipation Carvedilol (Coreg) 12.5 mg PO BID-WM [facility] Last Admin: 09/02/18 08:50 Dose: 12.5 mg Clopidogrel Bisulfate (Plavix) 75 mg PO DAILY [facility] Last Admin: 09/02/18 08:49 Dose: 75 mg Enalaprilat (Vasotec) 1.25 mg SLOW IVP Q6H PRN PRN Reason: BP > 220/110 Enoxaparin Sodium (Lovenox) 40 mg SC 0900 [facility] Last Admin: 09/02/18 08:49 Dose: 40 mg Fluticasone Propionate (Flonase Nasal [place]) 0 gm NASAL BID [facility] Last Admin: 09/02/18 08:48 Dose: 1 spr Furosemide (Lasix) 40 mg SLOW IVP 0600,1400 [facility] Last Admin: 09/02/18 05:42 Dose: 40 mg Hydralazine HCl (Apresoline) 10 mg SLOW IVP Q4H PRN PRN Reason: BP > 220/110 Insulin Human Regular (Humulin R) 0 units SC .MODERATE SLIDING SC PRN PRN Reason: Moderate Correctional Scale Last Admin: 09/02/18 11:06 Dose: 2 unit Labetalol HCl (Normodyne) 20 mg SLOW IVP Q6H PRN PRN Reason: BP > 220/110 Nicotine (Nicoderm Patch) 14 mg TD Q24HR [facility] Last Admin: 09/01/18 17:00 Dose: 14 mg Sodium Chloride (Flush - Normal Saline) 10 ml IVF PRN PRN PRN Reason: Saline Flush
[2018-09-02] MEDS: Atorvastatin Calcium 10 MG TAB PO SCH (21:24)
[2018-09-02] MEDS: Nicotine 14 MG PATCH TD SCH (23:09)
[2018-09-03 04:57] LABS: Anion Gap 16 mmol/L (10-20); BUN (Urea Nitrogen) 21 mg/dL (8.4-25.7); Calc. Creatinine Clearance 99 mL/min (70-130); Carbon Dioxide 20 mmol/L (23-31); Chloride 105 mmol/L (98-107); Estimated GFR-MDRD 57; Glucose 152 mg/dL (80-115); Potassium 3.6 mmol/L (3.5-5.1); Sodium 137 mmol/L (136-145)
[2018-09-03 05:02] LABS: #Eosinphils 0.2 thou/uL (0.0-0.7); #Monocytes 0.9 thou/uL (0.11-0.59); #Neutrophils 6.3 thou/uL (1.40-6.50); %Basophils 0.1 % (0.0-1.0); %Eosinophils 2.3 % (0.0-10.0); %Lymphocytes 21.4 % (21.0-51.0); %Monocytes 9.6 % (0.0-10.0); %Neutrophils 66.7 % (42.0-75.0); Hemoglobin 17.9 g/dL (14.0-18.0); Mean Corpuscular HGB CONC 32.5 g/dL (32.0-36.0); Mean Corpuscular Hemoglobin 29.7 pg (27.0-31.0); Mean Corpuscular Volume 91.2 fL (78.0-98.0); Mean Platelet Volume 7.2 fL (7.4-10.4); Platelet Count 188 thou/uL (130-400); RBC Distribution Width 12.4 % (11.5-14.5); Red Blood Cell (RBC) Count 6.02 mill/uL (4.70-6.10); White Blood Cell (WBC) Count 9.5 thou/uL (4.8-10.8)
[2018-09-03] MEDS: Furosemide 40 MG/4 ML VIAL SLOW IVP SCH ×2 (05:40→13:42)
[2018-09-03] MEDS: Insulin Regular 300 UNITS/3 ML VIAL SC PRN (06:35)
[2018-09-03] MEDS: Carvedilol 6.25 MG TAB PO SCH ×2 (08:39→17:10)
[2018-09-03] MEDS: Aspirin 325 mg Enteric Coated Tablet PO SCH (08:40)
[2018-09-03] MEDS: Clopidogrel Bisulfate 75 MG TAB PO SCH (08:40)
[2018-09-03] MEDS: Fluticasone Propionate Nasal Spray 16 gm Bottle NASAL SCH ×2 (08:41→22:20)
[2018-09-03] MEDS: Enoxaparin Sodium 40 MG/0.4 ML SYRINGE SC SCH (08:41)
[2018-09-03] MEDS ORDERED: Fentanyl 100 MCG/2 ML VIAL ONE (08:59)
--- NOTE | 2018-09-03 15:53 | PDOC.PN ---
- Subjective Encounter Start Date: 09/03/18 Encounter Start Time: 07:20 Pt seen for followup re: CHF exacerbation. Still has orthopnea, shortness of breath with exertion. - Objective MAR Reviewed: Yes Vital Signs & Weight: Vital Signs (12 hours) Temp Pulse Resp BP BP Pulse Ox 09/03/18 11:59 98.5 F 62 20 103/62 95 09/03/18 08:39 103/70 09/03/18 07:41 98.6 F 82 20 103/70 95 09/03/18 06:22 75 16 96 09/03/18 04:00 97.6 F 75 20 132/65 96 Weight Weight 253 lb 11.2 oz I&O: 09/02/18 09/03/18 09/04/18 06:59 06:59 06:59 Intake Total 900 1514 Output Total 50 900 Balance 850 614 Result Diagrams: 09/03/18 04:18 09/03/18 04:18 Additional Labs: Accuchecks 09/03/18 09/03/18 09/02/18 11:09 06:24 20:23 POC Glucose 170 H 171 H 189 H 09/02/18 16:51 POC Glucose 154 H EKG Reviewed by me: Yes (Tele: NSR) Phys Exam - Physical Examination Obese HEENT: moist MMs Neck: supple Jorgito crackles Cardiovascular: RRR Gastrointestinal: soft Neurological: moves all 4 limbs Psychiatric: normal affect Dx/Plan (1) Acute on chronic systolic ACC/AHA stage C congestive heart failure Code(s): I50.23 - ACUTE ON CHRONIC SYSTOLIC (CONGESTIVE) HEART FAILURE Status : Acute Comment: on IV furosemide (2) TIA (transient ischemic attack) Code(s): G45.9 - TRANSIENT CEREBRAL ISCHEMIC ATTACK, UNSPECIFIED Status: Acute Comment: on aspirin and Plavix. 2D echo report pending. (3) Carotid stenosis Code(s): I65.29 - OCCLUSION AND STENOSIS OF UNSPECIFIED CAROTID ARTERY Status : Acute Comment: for surgery tomorrow (4) Neck mass Code(s): R22.1 - LOCALIZED SWELLING, MASS AND LUMP, NECK Status: Acute Comment: await path report (5) CAD (coronary artery disease) Code(s): I25.10 - ATHSCL HEART DISEASE OF [place] CORONARY ARTERY W/O ANG PCTRS Status: Chronic Qualifiers: Coronary Disease-Associated Artery/Lesion type: bypass graft [place] vs. transplanted heart: [place] heart Associated angina: without angina Qualified Code(s): I25.810 - Atherosclerosis of coronary artery bypass graft(s) without angina pectoris Comment: stable (6) DM type 2 (diabetes mellitus, type 2) Status: Chronic Qualifiers: Diabetes mellitus assisted insulin use: without assisted use Diabetes mellitus complication status: with unspecified complications Qualified Code(s) : E11.8 - Type 2 diabetes mellitus with unspecified complications Comment: continue accuchecks, insulin sliding scale (7) HLD (hyperlipidemia) Code(s): E78.5 - HYPERLIPIDEMIA, UNSPECIFIED Status: Chronic Qualifiers: Hyperlipidemia type: unspecified Qualified Code(s): E78.5 - Hyperlipidemia , unspecified Comment: continue statin (8) Tobacco dependence Code(s): F17.200 - NICOTINE DEPENDENCE, UNSPECIFIED, UNCOMPLICATED Status: Chronic Comment: continue nicotine patch (9) Hypertensive urgency Code(s): I16.0 - HYPERTENSIVE URGENCY Status: Resolved - Plan * . Review of Systems - Review of Systems Respiratory: SOB with Excertion. negative: Cough, Dry, Shortness of Breath, Hemoptysis, Pleuritic Pain, Sputum, Wheezing Cardiovascular: orthopnea. negative: chest pain, palpitations, paroxysmal nocturnal dyspnea, edema, light headedness, other - Medications/Allergies Allergies/Adverse Reactions: Allergies Allergy/AdvReac Type Severity Reaction Status Date / Time No Known Allergies Allergy Verified 09/23/17 15:31 Medications: Current Medications Acetaminophen (Tylenol) 650 mg PO Q4H PRN PRN Reason: Headache/Fever or Pain Last Admin: 08/31/18 23:45 Dose: 650 mg Albuterol/Ipratropium (Duoneb) 3 ml NEB Q4H PRN PRN Reason: Dyspnea/Wheezing/SOB Last Admin: 09/03/18 06:22 Dose: 3 ml Aspirin (Ecotrin) 325 mg PO DAILY [facility] Last Admin: 09/03/18 08:40 Dose: 325 mg Atorvastatin Calcium (Lipitor) 10 mg PO [facility] Last Admin: 09/02/18 21:24 Dose: 10 mg Bisacodyl (Dulcolax) 10 mg PO DAILYPRN PRN PRN Reason: Constipation Carvedilol (Coreg) 12.5 mg PO BID-[facility] Last Admin: 09/03/18 08:39 Dose: 12.5 mg Clopidogrel Bisulfate (Plavix) 75 mg PO DAILY [facility] Last Admin: 09/03/18 08:40 Dose: 75 mg Enalaprilat (Vasotec) 1.25 mg SLOW IVP Q6H PRN PRN Reason: BP > 220/110 Enoxaparin Sodium (Lovenox) 40 mg SC 0900 [facility] Last Admin: 09/03/18 08:41 Dose: 40 mg Fluticasone Propionate (Flonase Nasal [place]) 0 gm NASAL BID [facility] Last Admin: 09/03/18 08:41 Dose: 1 spr Furosemide (Lasix) 40 mg SLOW IVP 0600,1400 [facility] Last Admin: 09/03/18 13:42 Dose: 40 mg Hydralazine HCl (Apresoline) 10 mg SLOW IVP Q4H PRN PRN Reason: BP > 220/110 Insulin Human Regular (Humulin R) 0 units SC .MODERATE SLIDING SC PRN PRN Reason: Moderate Correctional Scale Last Admin: 09/03/18 06:35 Dose: 2 unit Labetalol HCl (Normodyne) 20 mg SLOW IVP Q6H PRN PRN Reason: BP > 220/110 Nicotine (Nicoderm Patch) 14 mg TD Q24HR [facility] Last Admin: 09/02/18 23:09 Dose: 14 mg Sodium Chloride (Flush - Normal Saline) 10 ml IVF PRN PRN PRN Reason: Saline Flush
[2018-09-03] MEDS: Nicotine 14 MG PATCH TD SCH (17:12)
[2018-09-03] MEDS ORDERED: Vicks VapoRub 50 gm Jar TOP PRN (20:31)
[2018-09-03] MEDS: Atorvastatin Calcium 10 MG TAB PO SCH (22:21)
[2018-09-04] MEDS: Furosemide 40 MG/4 ML VIAL SLOW IVP SCH (06:13)
[2018-09-04] MEDS: Insulin Regular 300 UNITS/3 ML VIAL SC PRN ×2 (06:13→11:40)
[2018-09-04] MEDS ORDERED: Loratadine 10 MG TAB PO SCH (09:00)
[2018-09-04] MEDS: Enoxaparin Sodium 40 MG/0.4 ML SYRINGE SC SCH (09:31)
[2018-09-04] MEDS: Aspirin 325 mg Enteric Coated Tablet PO SCH (09:32)
[2018-09-04] MEDS: Carvedilol 6.25 MG TAB PO SCH ×2 (09:32→16:54)
[2018-09-04] MEDS: Clopidogrel Bisulfate 75 MG TAB PO SCH (09:32)
[2018-09-04] MEDS: Fluticasone Propionate Nasal Spray 16 gm Bottle NASAL SCH (09:33)
[2018-09-04 12:13] VITALS: TEMP 97.7
[2018-09-04] MEDS ORDERED: Amoxicillin/Potassium Clav 875 MG TAB PO SCH ×2 (14:30→21:00)
[2018-09-04 16:05] VITALS: BP 121/87
--- NOTE | 2018-09-04 22:37 | CON ---
DATE OF CONSULTATION: 09/04/2018 CONSULTING PHYSICIAN: Hospitalist Service. IMPRESSION: 1. Lacunar stroke with new left facial droop and slurred speech. 2. Prior stroke with left upper extremity weakness. 3. Coronary artery disease. 4. Bilateral carotid stenosis. 5. Hypertension. 6. Diabetes. 7. Dyslipidemia. PLAN: 1. Continue prior treatment with aspirin and Plavix and statin. 2. The patient can be discharged home. 3. Quit smoking counseling. HISTORY OF PRESENT ILLNESS: Mr. Stubbs is a 63-year-old gentleman with multiple medical problems. He reports developing slurred speech and some facial droop on the left that he did not have before. He had residual weakness of the left upper extremity from a stroke last year. He reports being complia nt with his medication including aspirin and Plavix. His CT scan of the brain showed multiple lacuna r infarctions, but nothing definitively new. His CT of the [place] was notable for atherosc lerosis in multiple vessels with a chronic occlusion of the right internal carotid artery and probabl e moderately high grade stenosis on the left carotid. His neurologic status has been stable. He pas sed a swallow evaluation. His echocardiogram showed ejection fraction of 25%-30%. His clinical cour se has otherwise been uneventful. PAST MEDICAL HISTORY: As listed above. ALLERGIES: None. SOCIAL HISTORY: Positive for tobacco. FAMILY HISTORY: Noncontributory. REVIEW OF SYSTEMS: No complaint of headache, nausea, vomiting, vertigo, double vision, difficulty wa lking. PHYSICAL EXAMINATION: GENERAL: He is an overweight middle-aged man in no acute distress. VITAL SIGNS: Blood pressure 121/87, pulse 77, respirations 16, temperature 97.7. HEENT: Pupils equal and reactive. Conjunctivae clear. Oropharynx is clear. NECK: Supple, no lymphadenopathy. NEUROLOGIC: He was alert and cooperative. His speech was fluent but mildly dysarthric. Cranial ner ve exam shows a left facial droop. 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 He can stand independently. No abnorma l movements were seen. LABORATORY STUDIES: Unremarkable, CBC and coags. His blood sugars have been running between 135 and 220. SUMMARY: A middle-aged man with multiple risk factors with recurrent lacunar stroke. He is on [facility] medical therapy. He has been unwilling to discontinue smoking. The Vascular Surgery does not fee l like the left carotid stenosis warrants surgical intervention at this point. Given his poor compli ance patterns could be hesitant to place him on anticoagulants. I will be happy to follow up with ayaka núñez as an outpatient.
--- NOTE | 2018-09-05 04:34 | DIS ---
PRIMARY CARE PROVIDER: Tavo Segovia M.D. DATE OF ADMISSION: 08/31/2018 DATE OF DISCHARGE: 09/04/2018 DISCHARGE DIAGNOSES: 1. Transient ischemic attack. 2. Hypertensive urgency. 3. Systolic congestive heart failure exacerbation. 4. Neck mass. 5. Carotid stenosis. CONSULTATIONS DURING THIS HOSPITALIZATION: Cardiovascular Surgery, Dr. Juan Quintero; Neurology, Dr. Castle; and ENT, Dr. Toy Ley. CONDITION OF PATIENT ON THE DAY OF DISCHARGE: Stable. I assessed Mr. Stubbs on the day of discharge. He denies any chest pain or shortness of breath. Vital signs are stable. S1 and S2 are heard, regular. Lungs are clear to auscultation bilaterally. DISCHARGE MEDICATIONS: Metformin 500 mg 2 times a day, amoxicillin/potassium clavulanate 875 mg 2 times a day for 2 weeks, aspirin 325 mg daily, Lipitor 40 mg at bedtime, Coreg 12.5 mg 2 times a day, Plavix 75 mg daily, lisinopril 5 mg daily, Proventil p.r.n., nitroglycerin p.r.n., and furosemide 20 mg daily. HOSPITAL COURSE: Mr. Stubbs is a pleasant 63-year-old gentleman, who was admitted to [facility] on 08/31/2018 for symptoms of TIA as well as hypertensive urgency. Please refer to my history and physical note dated 08/31/2018 for further details. A CT angiography at the time of admission showed right level II pathologic cystic lymph node, highly suspicious for malignant metastatic lymphadenopathy. He also had chronic occlusion of right internal carotid artery and probable high grade stenosis of proximal left internal carotid. He was seen by ENT, Neurology and Cardiovascular Surgery Services. He underwent ultrasound guided fine needle aspiration of the partially cystic enlarged lymph node posterior to the right sternocleidomastoid muscle. Pathology report indicated occasional degenerated epithelioid nests on a background of cyst fluid with macrophages and precipitated protein. ENT Service is recommending that he be started on Augmentin and they will follow up with him in 1-2 weeks. He was also significantly short of breath, most likely from exacerbation of systolic congestive heart failure. He received intravenous diuretics and was subsequently stepped down to oral diuretics. He has been cleared for discharge by Neurology Service. In terms of carotid stenosis, he was seen by Cardiovascular Surgery. The patient was felt that he is not a candidate acutely for a general anesthetic for the carotid artery surgery. CV Surgery recommended that he be maintained on aspirin and Plavix. He had a 2D echocardiogram during this hospitalization, which showed left ventricular ejection fraction of 25% to 30%. Many thanks for allowing me to participate in your patient's care. Please feel free to contact me with any questions or concerns. On 09/03/2018, he had sodium 137, potassium 3.6, creatinine 1.27, white count 9500, hemoglobin 17.9, and platelet count 188,000. He has been counseled to stop smoking. DISCHARGE DESTINATION: Home. TOTAL AMOUNT OF TIME SPENT COORDINATING THIS DISCHARGE: 33 minutes. RADHA
[2018-09-05] MEDS ORDERED: Furosemide 20 MG TAB PO SCH (09:00)
== END 2018-09-04 17:26 | disposition home health service (06) | DRG 40 ==
LOC: ERS 15:39 → 2SE 16:28
PROVIDERS: ADMIT Internal Medicine; ATTEND Internal Medicine
PROC: 07913ZX Drainage of Right Neck Lymphatic, Percutaneous Approach, Diagnostic (ICD-10-PCS; principal; 2018-09-02)
DX: G45.9 Transient cerebral ischemic attack, unspecified (principal); I50.23 Acute on chronic systolic (congestive) heart failure; J44.1 Chronic obstructive pulmonary disease with (acute) exacerbation; I42.9 Cardiomyopathy, unspecified; I25.10 Atherosclerotic heart disease of native coronary artery without angina pectoris; I11.0 Hypertensive heart disease with heart failure; E11.9 Type 2 diabetes mellitus without complications; E87.5 Hyperkalemia; F17.210 Nicotine dependence, cigarettes, uncomplicated; I16.0 Hypertensive urgency; R47.81 Slurred speech; R29.810 Facial weakness; R22.1 Localized swelling, mass and lump, neck; F10.10 Alcohol abuse, uncomplicated; I65.23 Occlusion and stenosis of bilateral carotid arteries; Z79.82 Long term (current) use of aspirin; Z79.84 Long term (current) use of oral hypoglycemic drugs; Z86.73 Personal history of transient ischemic attack (TIA), and cerebral infarction without residual deficits; Z95.810 Presence of automatic (implantable) cardiac defibrillator; Z95.1 Presence of aortocoronary bypass graft; Z82.49 Family history of ischemic heart disease and other diseases of the circulatory system
CPT/HCPCS: 36415; 36416; 38505; 70450; 70496; 70498; 71045; 74230; 80048; 80053; 80061; 82550; 82553; 83735; 83880; 84484; 85025; 85610; 85730; 88173; 88184; 88305; 93005; 93306; 94640; G8978-GP-CJ; G8979-GP-CJ; G8980-GP-CJ; G8987-GO-CI; G8988-GO-CI; G8989-GO-CI; G8996-GN-CM; G8997-GN-CK; J1650; J1815; J1940; J2001; J3010; J7620

== ENCOUNTER 2019-10-08 03:21 | Observation (INO) | payer MEDICARE ==
[2019-10-08] MEDS ORDERED: hydrALAZINE 20 MG/ML VIAL SLOW IVP PRN (08:05)
[2019-10-08] MEDS ORDERED: Acetaminophen 325 MG TAB PO PRN (08:05)
[2019-10-08] MEDS ORDERED: Dextrose 5% in Water 1,000 ML IV PRN (08:05)
[2019-10-08] MEDS ORDERED: HumaLOG 300 UNITS/3 ML VIAL SC PRN ×2 (08:05)
[2019-10-08] MEDS ORDERED: Dextrose 50% Abboject 50 ML SYRINGE SLOW IVP PRN (08:05)
[2019-10-08] MEDS ORDERED: Nitroglycerin 0.4 MG TAB (25 Tab Bottle) SL PRN (08:13)
[2019-10-08] MEDS ORDERED: Melatonin 3 MG TAB PO PRN (08:13)
[2019-10-08] MEDS ORDERED: Furosemide 40 MG/4 ML VIAL SLOW IVP SCH (08:15)
[2019-10-08] MEDS ORDERED: Aspirin 81 mg Enteric Coated Tablet PO SCH (09:00)
[2019-10-08] MEDS ORDERED: Clopidogrel Bisulfate 75 MG TAB PO SCH (09:00)
--- NOTE | 2019-10-08 09:25 | CT ---
CT ANGIOGRAM OF THE NECK: HISTORY: Left-sided weakness. Transient ischemic attack. COMPARISON: 08/31/2018. TECHNIQUE: CT angiogram of the neck is performed in the axial plane. Three-dimensional reformatted images are avery bmitted for interpretation. FINDINGS: No abnormal enhancement of the visualized brain parenchyma. Soft tissue neck structures: There is appropriate aeration of the visualized aerodigestive tract. No obvious mucosal abnormality. No obvious masses in the oral cavity. Midline fatty raphae of the tongue is preserved. Epiglottis has a normal caliber. Preepiglottic fat is preserved. Mild fullness a t the left and right tongue base may be due to lingual tonsillar hypertrophy. Symmetric attenuation of the submandibular and parotid glands. Unremarkable thyroid gland. There is a predominantly hypodense lesion in the right neck, compatible with enlarged right lymph nod e measuring 1.6 x 1.3 cm. Enlarged, cystic right level 5 lymph node measuring 2.5 x 1.3 cm is noted. Upper mediastinum is unremarkable. Presumed chronic changes in the lung apices. Cervical spine: Vertebral body height is maintained. There is no fracture. There are varying degrees of central canal stenosis and neural foraminal narrowing on the basis of degenerative change. CT ANGIOGRAM: Visualized aorta demonstrates atherosclerosis. No aneurysm. Right carotid: The right innominate artery origin has appropriate enhancement and luminal diameter. T he right common carotid artery demonstrates long segment moderate stenosis. There is long segment mild stenosis of the distal common carotid artery. There is complete occlusion of the right internal carotid artery, starting at the bifurcation and extending into the entire cervical right internal carotid artery. Left carotid: Left carotid artery origin has appropriate enhancement and luminal diameter. Left commo n carotid artery has appropriate enhancement and luminal diameter. There is atherosclerosis involving the left carotid bifurcation and proximal internal carotid artery. There is a short segment string sign involving the left carotid bifurcation and proximal left internal carotid artery. The mid and distal left internal carotid artery have appropriate enhancement. Bilateral cervical vertebral arteries are patent throughout their course in the neck. Bilateral subclavian arteries are unremarkable. IMPRESSION: 1. Complete occlusion of the right internal carotid artery, unchanged from the previous examination. 2. Severe stenosis with a string sign involving the left carotid bifurcation and proximal internal ca rotid artery. Findings are similar to the previous examination. 3. Redemonstration of right level 5 cystic lymph nodes. Interval development of enlarged, cystic righ t level 2 lymph nodes. Correlate with previous biopsy results to determine if additional biopsy is required. CODE T Transcribed Date/Time: 10/08/2019 9:34 AM
[2019-10-08] MEDS: Enoxaparin Sodium 40 MG/0.4 ML SYRINGE SC SCH (09:57)
[2019-10-08] MEDS: Carvedilol 6.25 MG TAB PO SCH ×2 (09:58→20:30)
[2019-10-08] MEDS: Famotidine 20 MG TAB PO SCH ×2 (09:58→20:30)
[2019-10-08] MEDS: Aspirin 81 mg Enteric Coated Tablet PO SCH (09:58)
[2019-10-08] MEDS: Clopidogrel Bisulfate 75 MG TAB PO SCH (09:58)
[2019-10-08] MEDS: Lisinopril 5 MG TAB PO SCH (09:59)
--- NOTE | 2019-10-08 10:17 | HP ---
PRIMARY CARE PHYSICIAN: Dr. Ramone Cotton. He says he also sees . Carla Barrera, who is a nurse practitioner. CHIEF COMPLAINT: Slurred speech and left-sided weakness. HISTORY OF PRESENT ILLNESS: Mr. Stubbs is a pleasant 64-year-old gentleman, who has a history of coronary artery disease and previous stroke. He also has a history of congestive heart failure. He says he was fine until last week. He was picking his son up from school on Saturday, and when he picked up his son, his son noticed that his speech was slurred, and the patient says that he also felt a little bit woozy. He says he took one of his nitroglycerin pills, and about 5 minutes later, he felt fine and he drove home. He said he was okay until last night when he started noticing it was getting harder and harder to breathe, then suddenly his left thigh got numb and he felt weak. He says that he sat there for a while and needed to go to the bathroom, but when he tried to get up, he could get out of his chair. He had a nitroglycerin on his nightstand and took it, and says about 5 minutes later, he started to feel better, but this time he called 911 to bring him to the hospital. He denied having any chest pain during this time or any palpitations, but he does have a defibrillator and says that it has been making odd noises and seems to be vibrating. He says that he has not had his defibrillator interrogated in over a year. He sees Dr. aVladez and admits he has not seen him in probably two years. He also notes increasing shortness of breath, which is worse when he lays back. However, he denies any leg swelling and he has not had any recent workup for stroke, but says he has had several strokes in the past. REVIEW OF SYSTEMS: All systems were reviewed and are negative except for that mentioned in the history of present illness. PAST MEDICAL HISTORY: Significant for chronic systolic heart failure, diabetes mellitus type 2, coronary artery disease, hypertension, hyperlipidemia, and cerebrovascular accident. PAST SURGICAL HISTORY: He has had bypass surgery and then had to have a redo surgery. He has had a defibrillator placed and has also had back surgery at L5 and S1. ALLERGIES: NO KNOWN DRUG ALLERGIES. SOCIAL HISTORY: He is single. He has a 12-year-old son. He is a nondrinker, but he does smoke about half a pack of cigarettes a day, but he says he quit day before yesterday. Prior to that, he was a pack a day and he had smoked for at least 45 years. FAMILY HISTORY: Significant for mother, who had breast cancer; father who had coronary artery disease and a valve replaced. CURRENT MEDICATIONS: His current medications are taken from the records from the [facility] in [place] and these include; 1. Aspirin 81 mg daily. 2. Plavix 75 mg a day. 3. Metformin 850 mg twice a day. 4. Pravastatin 40 mg daily. 5. Lasix 20 mg daily. 6. Carvedilol 12.5 mg twice a day. 7. Chantix as directed. 8. Melatonin 10 mg as directed. PHYSICAL EXAMINATION: GENERAL: He is alert and oriented. He appears to be in no acute distress. He is well developed and well nourished, however, a bit chronically ill in appearance. VITAL SIGNS: Blood pressure was 170/103, heart rate 73, respiratory rate of 22, and temperature is 97.7. HEENT: His pupils are equal, round, and reactive to light. Extraocular muscles are intact. Sclerae anicteric. Throat, no erythema, no exudates. NECK: No adenopathy. No bruits. LUNGS: He has bilateral expiratory wheezing. No rhonchi. No rales. CARDIOVASCULAR: Heart tones are a bit distant, but he has a normal S1 and S2. There is no S3 or S4. No murmurs, clicks, or rubs. ABDOMEN: Obese. It is soft, nontender, and nondistended. Positive for bowel sounds. There is no rebound or guarding. EXTREMITIES: There is no clubbing or cyanosis. No edema. NEUROLOGIC: His cranial nerves 2 through 12 are grossly intact. Muscle strength appeared symmetric. He had 5/5 muscle strength in his upper extremities as well as his lower extremities. 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 There was no drift, but he has subjective complaints of weakness. SKIN AND INTEGUMENT: There are no skin changes. No rashes. LABORATORY DATA: These are from the [facility]. His BNP was slightly elevated at 209. Troponin is 0.03, BUN of 24, creatinine of 1.27. His GFR was 59. Sodium 141, potassium 4.8, chloride is 108, CO2 is 19. White blood cell count is 9.1, hemoglobin 17.4, hematocrit is 52.6, and platelet count is 193. He had a CT scan of the brain showing no acute intracranial abnormalities. There were no findings to suggest acute infarct. No hemorrhage or mass. Chest x-ray report shows some reticular interstitial opacities similar to before. No pleural effusion or consolidation, and then his EKG is sinus rhythm with a 1st degree AV block. He does have some T-wave inversions in I and aVL and Q waves in III and aVF. ASSESSMENT: 1. This is a pleasant 64-year-old gentleman, who is being placed in observation due to slurred speech and left-sided weakness. He continues to have the slurred speech ever since last Saturday and notes subjective left-sided weakness. He will be placed in observation. We will get a CT angiogram of the carotids as well as an echocardiogram and monitor him for signs of arrhythmia. We will also interrogate his defibrillator and pacer. Continue his aspirin and Plavix. Check his lipid panel and consult Neurology to see if there is any additional change in medications or management. 2. He also has a history of chronic obstructive pulmonary disease. He says it is fairly severe. We will go ahead and place him on DuoNebs p.r.n. as well as scheduled. He is already starting to quit smoking. 3. Chronic systolic heart failure. An echo will be checked to assess his EF. He appears to have some mild failure and would likely benefit from a dose of IV Lasix. 4. Diabetes mellitus. We will hold off on metformin for now and place him on a sliding scale insulin. 5. Hypertension. His blood pressure appears to be elevated. We will need to reconcile and restart his medications, and he may need an adjustment there as well. Job ID: [id number]
[2019-10-08] MEDS ORDERED: Iopamidol 370 76% 100 ML VIAL ONE (15:43)
[2019-10-08] MEDS: Arformoterol 15 MCG/2 ML NEB NEB SCH (18:25)
--- NOTE | 2019-10-08 19:49 | CON ---
DATE OF CONSULTATION: 10/08/2019 CONSULTING PHYSICIAN: Hospitalist Service. HISTORY OF PRESENT ILLNESS: Mr. Stubbs presented with acute left-sided weakness and some increased slurred speech. His CTA revealed a complete occlusion of the right internal carotid artery. His left carotid shows a string sign. His prior echocardiogram shows ejection fraction of 25% to 30%. He had been on aspirin, Plavix, and just statin prior to admission. PHYSICAL EXAMINATION: He is alert and cooperative. His speech is moderately dysarthric. There is no facial asymmetry. Motor exam showed subtle difference in strength on the left compared to the right. He can walk independently. His sensations were intact. No abnormal movements were seen. LABORATORY DATA: EKG shows sinus rhythm. SUMMARY: I would change his aspirin and Plavix to Aggrenox 1 twice a day. We need to consult Vascular Surgery for probable carotid endarterectomy on the left. The timing of this will be at their discretion. He appears to be doing reasonably well and will likely be an outpatient rehab candidate. Job ID: [id number]
[2019-10-08] MEDS ORDERED: Atorvastatin Calcium 40 MG TAB PO SCH (21:00)
--- NOTE | 2019-10-09 00:02 | CON ---
DATE OF CONSULTATION: HISTORY OF PRESENT ILLNESS: This is a 64-year-old gentleman, admitted after he probably suffered a stroke 1 week ago when he developed weakness and clumsiness in his left arm and leg and speech difficulties. He underwent carotid CT angiography in the emergency room where he was found to have 70% or greater left internal carotid artery stenosis and a chronic right internal carotid occlusion. It was reported as a string sign on the left, but it is not that. When compared to a prior study 1 year ago, it is difficult to compare because the previous study was not a very good quality compared to this one. The patient has a history of coronary artery disease, COPD, diabetes mellitus, hyperlipidemia, hypertension. He has also had a previous CVA. PAST SURGICAL HISTORY: Significant for coronary artery bypass grafting [place] [address] Cobos, previous back surgery L5-S1 and most recently last year, a defibrillator placed. He is intermittently seen by Dr. Vargas, but not on a regular basis. MEDICATIONS: At home include, 1. Aspirin. 2. Plavix. 3. Pravastatin 40. 4. Lasix 20. 5. Coreg 12.5 b.i.d. 6. Metformin 850 b.i.d. 7. Melatonin as directed. The patient states he does take his medicines regularly. He has no current laboratory values in the chart from this admission. He was seen at the [facility]. However, those laboratory values are not available in the records. PHYSICAL EXAMINATION: GENERAL: He is an alert, cooperative gentleman. VITAL SIGNS: Recorded blood pressure of 113, heart rate of 67. NECK: Unshaven. No carotid bruits. LUNGS: Clear to auscultation anteriorly. No wheezing. No rhonchi. CARDIAC: Regular rate and rhythm. No murmurs. Defibrillator, left upper chest. ABDOMEN: Obese, soft, nontender. EXTREMITIES: He has palpable femoral and popliteal pulses and I do not appreciate pedal pulses. He has no peripheral edema. Left hand has some restriction in motion of his fingers and he does have some qdrtdy-of-vtfv incoordination when compared with the right arm. His left leg strength appears intact at this time. ASSESSMENT AND PLAN: The patient would benefit from left carotid endarterectomy. However, he wishes to postpone this 1 week or 2, which I think is reasonable given his recent stroke. He is to resume his medications. ADDENDUM The laboratory values have been located and he has a hemoglobin of 17.4, platelet count of 193, creatinine of 1.27, blood sugar of 147, normal INR. CT scan of his head demonstrated some right cerebral encephalomalacia. No acute findings. We will contact the patient to return if he wishes to proceed with endarterectomy in the next 1-2 weeks. Job ID: [id number]
[2019-10-09 05:10] LABS: #Eosinphils 0.2 thou/uL (0.0-0.7); #Lymphocytes 1.5 thou/uL (1.20-3.40); #Monocytes 0.6 thou/uL (0.11-0.59); #Neutrophils 4.6 thou/uL (1.40-6.50); %Basophils 0.3 % (0.0-1.0); %Eosinophils 2.6 % (0.0-10.0); %Lymphocytes 21.5 % (21.0-51.0); %Monocytes 8.3 % (0.0-10.0); %Neutrophils 67.2 % (42.0-75.0); Hemoglobin 16.1 g/dL (14.0-18.0); Mean Corpuscular HGB CONC 32.5 g/dL (32.0-36.0); Mean Corpuscular Hemoglobin 29.9 pg (27.0-31.0); Mean Platelet Volume 7.4 fL (7.4-10.4); Platelet Count 163 thou/uL (130-400); RBC Distribution Width 13.1 % (11.5-14.5); Red Blood Cell (RBC) Count 5.37 mill/uL (4.70-6.10); White Blood Cell (WBC) Count 6.9 thou/uL (4.8-10.8)
[2019-10-09 05:31] LABS: Anion Gap 14 mmol/L (10-20); BUN (Urea Nitrogen) 26 mg/dL (8.4-25.7); Calc. Creatinine Clearance 107 mL/min (70-130); Calcium 9.3 mg/dL (7.8-10.44); Carbon Dioxide 22 mmol/L (23-31); Cardiac Risk 4.4 (Less than 4.5); Chloride 106 mmol/L (98-107); Cholesterol 124 mg/dl (< 200 Desired); Estimated GFR-MDRD 66; Glucose 172 mg/dL (80-115); HDL Cholesterol 28 mg/dL (>60 Neg Risk); LDL Cholesterol, Calculated 75 mg/dL; Sodium 138 mmol/L (136-145); Triglycerides 104 mg/dL (Less than 150)
[2019-10-09 05:55] VITALS: BMI 33.4
[2019-10-09] MEDS: Arformoterol 15 MCG/2 ML NEB NEB SCH (06:27)
[2019-10-09] MEDS: Enoxaparin Sodium 40 MG/0.4 ML SYRINGE SC SCH (08:41)
[2019-10-09] MEDS: Famotidine 20 MG TAB PO SCH (08:42)
[2019-10-09] MEDS: Aspirin 81 mg Enteric Coated Tablet PO SCH (08:42)
[2019-10-09] MEDS: Carvedilol 6.25 MG TAB PO SCH (08:42)
[2019-10-09] MEDS: Lisinopril 5 MG TAB PO SCH (08:42)
[2019-10-09] MEDS: Clopidogrel Bisulfate 75 MG TAB PO SCH (08:43)
[2019-10-09 11:46] VITALS: BP 142/79; TEMP 97.9
--- NOTE | 2019-10-09 14:42 | PDOC.HOSPP ---
- Subjective Encounter Date: 10/09/19 Encounter Time: 14:40 Subjective: Mr. Carter was seen today in follow-up of slurred speech, and left sided weakness. He says he feels better. He does not have any new complaints. - Objective Vital Signs & Weight: Vital Signs (12 hours) Temp Pulse Resp BP BP BP Pulse Ox 10/09/19 12:45 63 16 98 10/09/19 11:20 97.9 F 61 18 142/79 H 91 L 10/09/19 08:42 67 142/80 H 10/09/19 07:35 98.3 F 67 18 142/80 H 98 10/09/19 07:21 97 10/09/19 06:27 65 14 97 10/09/19 04:15 97.6 F 54 L 14 106/56 L 97 10/09/19 02:44 55 L 16 95 Weight Weight 246 lb 4.8 oz I&O: 10/08/19 10/09/19 10/10/19 06:59 06:59 06:59 Intake Total 770 Balance 770 Result Diagrams: 10/09/19 04:53 10/09/19 04:53 Additional Labs: Accuchecks 10/09/19 10/09/19 10/08/19 10:59 05:39 19:28 POC Glucose 151 H 176 H 125 H 10/08/19 16:39 POC Glucose 142 H Hospitalist ROS - Medication Medications: Active Medications Generic Name Dose Route Start Last Admin Trade Name Freq PRN Reason Stop Dose Admin Albuterol/Ipratropium 3 ml 10/08/19 07:49 10/09/19 12:45 Duoneb NEB 3 ml [id number] PRN Administration SOB &/or Wheezing Arformoterol Tartrate 15 mcg 10/08/19 18:30 10/09/19 06:27 Brovana NEB 15 mcg BID-RT VIRI Administration Aspirin 162 mg 10/08/19 09:00 10/09/19 08:42 Ecotrin PO 162 mg DAILY VIRI Administration Atorvastatin Calcium 80 mg 10/08/19 21:00 10/08/19 20:30 Lipitor PO 80 mg HS VIRI Administration Carvedilol 12.5 mg 10/08/19 09:00 10/09/19 08:42 Coreg PO 12.5 mg BID VIRI Administration Clopidogrel Bisulfate 75 mg 10/08/19 09:00 11/08/19 08:43 Plavix PO 75 mg DAILY VIRI Administration Enoxaparin Sodium 40 mg 10/08/19 09:00 10/09/19 08:41 Lovenox SC 40 mg 0900 VIRI Administration Famotidine 20 mg 10/08/19 09:00 10/09/19 08:42 Pepcid PO 20 mg BID VIRI Administration Insulin Human Lispro 0 units 10/08/19 08:05 10/08/19 13:07 Humalog SC 2 unit .MODERATE SLIDING SC PRN Administration Moderate Correctional Scale Lisinopril 5 mg 10/08/19 09:00 10/09/19 08:42 Zestril PO 5 mg DAILY VIRI Administration - Exam Eye: PERRL Heart: RRR, no murmur, no gallops, no rubs, normal peripheral pulses Respiratory: CTAB, no wheezes, no rales, no ronchi, normal chest expansion, no tachypnea, normal percussion Gastrointestinal: soft, non-tender, non-distended, normal bowel sounds, no palpable masses Extremities: no cyanosis, no clubbing Hosp A/P (1) COPD (chronic obstructive pulmonary disease) Status: Acute (2) Chronic systolic heart failure Code(s): I50.22 - CHRONIC SYSTOLIC (CONGESTIVE) HEART FAILURE Status: Chronic (3) Carotid stenosis Code(s): I65.29 - OCCLUSION AND STENOSIS OF UNSPECIFIED CAROTID ARTERY Status : Chronic (4) TIA (transient ischemic attack) Code(s): G45.9 - TRANSIENT CEREBRAL ISCHEMIC ATTACK, UNSPECIFIED Status: Acute (5) CAD (coronary artery disease) Code(s): I25.10 - ATHSCL HEART DISEASE OF [place] CORONARY ARTERY W/O ANG PCTRS Status: Chronic Qualifiers: Coronary Disease-Associated Artery/Lesion type: bypass graft [place] vs. transplanted heart: [place] heart Associated angina: without angina Qualified Code(s): I25.810 - Atherosclerosis of coronary artery bypass graft(s) without angina pectoris (6) HLD (hyperlipidemia) Code(s): E78.5 - HYPERLIPIDEMIA, UNSPECIFIED Status: Chronic Qualifiers: Hyperlipidemia type: unspecified Qualified Code(s): E78.5 - Hyperlipidemia , unspecified (7) HTN (hypertension) Code(s): I10 - ESSENTIAL (PRIMARY) HYPERTENSION Status: Chronic Qualifiers: Hypertension type: essential hypertension Qualified Code(s): I10 - Essential (primary) hypertension - Plan * TIA- left sided weakness has improved * CTA of the neck noted- he has severe Carotid artery disease * He has been evaluated by CV Surgery- and out patient CEA is recommended * Systolic heart failure- His EF has worsened- Entresto has been added by Cardiology * Stable for discharge home
--- NOTE | 2019-10-09 19:07 | CON ---
DATE OF CONSULTATION: 10/09/2019 PRIMARY QM CONSULTANT: Mando Valadez MD. REASON FOR CONSULTATION: LV dysfunction. HISTORY OF PRESENT ILLNESS: Mr. Stubbs is a pleasant 64-year-old white gentleman, who comes to the hospital for symptoms concerning for a stroke. He was found to have severe carotid stenosis and is planned to undergo surgery in the next few weeks. He was also diagnosed with an acute stroke that probably happened about a week ago. He has a 12-year-old kid whom he comes and picks up at school and he noticed slurred speech. Cardiology has been consulted. Has an echocardiogram, showed EF 15% to 20%, which is lower than what it was before about 25% to 30%. Mr. Stubbs has a history of ischemic cardiomyopathy with last catheterization in 2017 showing none of his 5 grafts were patent and he had severe [place] disease not amenable to any revascularization. He denies any chest pain, tightness, or pressure. His shortness of breath is at his baseline. PAST MEDICAL HISTORY: 1. Chronic systolic heart failure. 2. Type 2 diabetes. 3. Coronary artery disease as above. 4. Hypertension. 5. Hyperlipidemia. 6. CVAs in the past. PAST SURGICAL HISTORY: 1. CABG x5 in 2011. 2. AICD placement. 3. Back surgery, L5 and S1. ALLERGIES: NO KNOWN DRUG ALLERGIES. OUTPATIENT MEDICATIONS: 1. Aspirin 81 a day. 2. Plavix 75 mg a day. 3. Metformin 850 mg twice a day. 4. Pravastatin 40 mg a day. 5. Lasix 20 mg a day. 6. Carvedilol 12.5 mg b.i.d. 7. Chantix. 8. Melatonin. FAMILY HISTORY: Father with coronary artery disease and valve placed. SOCIAL HISTORY: He has a 12-year-old son. He continues to smoke about half a pack a day. No drugs. He is single with 12-year-old son. REVIEW OF SYSTEMS: A 12-point review of systems was done, negative unless stated in the history of present illness. PHYSICAL EXAMINATION: VITAL SIGNS: Temperature 97.9, pulse 61, respiratory rate 18, saturation 99% on room air, and blood pressure 142/79. GENERAL: Awake, alert, oriented x3, in no distress. HEENT: Normocephalic, atraumatic. NECK: Supple. LUNGS: Clear. CARDIOVASCULAR: S1 and S2. No S3 or S4. ABDOMEN: Soft. Positive bowel sounds. EXTREMITIES: No edema. SKIN: Warm and dry. LABORATORY DATA: Reviewed. CBC and chemistries were reviewed. ASSESSMENT AND PLAN: 1. Worsening cardiomyopathy, EF 15% to 20%. disease. There is a mild decrease as compared to previous evaluation. He has no vein grafts open out of the 5, has severe [place] disease. Not amenable to any sort of revascularization. At this time, he may proceed with surgery. He is high risk for any vascular surgery which is a high risk procedure as well. May proceed with understood risk caveats. 2. Would change his lisinopril to Entresto b.i.d., see if this helps with LV function. 3. Otherwise, he may be discharged home at any point as he does not have an acute cardiac issue. This is an acute cerebrovascular accident that he came in with and he has lower than normal LV function, just a mild jump from his previous severely reduced EF. Thank you for letting us participate in the care of your patient. He may be discharged home. Follow up in the Dr. Valadez's office in 1 to 2 months. Job ID: [id number]
[2019-10-10] MEDS ORDERED: Sacubitril 24.5 MG/Valsartan 25.5 MG TABLET PO SCH (21:00)
== END 2019-10-09 16:22 | disposition home or self-care (01) ==
LOC: ERS 03:21 → 2SE 05:19
PROVIDERS: ADMIT Internal Medicine; ATTEND Internal Medicine
DX: G45.9 Transient cerebral ischemic attack, unspecified (principal); I42.9 Cardiomyopathy, unspecified; I11.0 Hypertensive heart disease with heart failure; I50.22 Chronic systolic (congestive) heart failure; E11.9 Type 2 diabetes mellitus without complications; I25.10 Atherosclerotic heart disease of native coronary artery without angina pectoris; E78.5 Hyperlipidemia, unspecified; J44.9 Chronic obstructive pulmonary disease, unspecified; Z79.82 Long term (current) use of aspirin; Z79.84 Long term (current) use of oral hypoglycemic drugs; Z79.899 Other long term (current) drug therapy; Z87.891 Personal history of nicotine dependence; Z86.73 Personal history of transient ischemic attack (TIA), and cerebral infarction without residual deficits; Z95.1 Presence of aortocoronary bypass graft; Z95.810 Presence of automatic (implantable) cardiac defibrillator
CPT/HCPCS: 70498; 80048; 80061; 82962 ×2; 85025; 93306; 94640 ×3; 96372 ×2; 96374; 99285; G0378 ×2; 36415; 36416; J1650; J1940; J7620; Q9967

== ENCOUNTER 2020-09-07 00:27 | Inpatient (IN) | payer MEDICARE, OTHER ==
[2020-09-07 00:51] LABS: #Eosinphils 0.3 thou/uL (0.0-0.7); #Lymphocytes 1.4 thou/uL (1.20-3.40); #Monocytes 0.8 thou/uL (0.11-0.59); #Neutrophils 5.6 thou/uL (1.40-6.50); %Basophils 0.5 % (0.0-1.0); %Eosinophils 3.8 % (0.0-10.0); %Monocytes 10.2 % (0.0-10.0); %Neutrophils 68.5 % (42.0-75.0); Hemoglobin 16.3 g/dL (14.0-18.0); Mean Corpuscular HGB CONC 34.2 g/dL (32.0-36.0); Mean Corpuscular Volume 90.5 fL (78.0-98.0); Mean Platelet Volume 7.5 fL (7.4-10.4); Platelet Count 165 thou/uL (130-400); RBC Distribution Width 13.3 % (11.5-14.5); Red Blood Cell (RBC) Count 5.28 mill/uL (4.70-6.10); White Blood Cell (WBC) Count 8.2 thou/uL (4.8-10.8)
[2020-09-07 01:17] LABS: Anion Gap 15 mmol/L (10-20); BUN (Urea Nitrogen) 28 mg/dL (8.4-25.7); Calc. Creatinine Clearance 0 mL/min (70-130); Carbon Dioxide 21 mmol/L (23-31); Chloride 107 mmol/L (98-107); Estimated GFR-MDRD 56; Potassium 4.5 mmol/L (3.5-5.1); Sodium 138 mmol/L (136-145)
[2020-09-07 01:18] LABS: ALT (SGPT) 13 U/L (8-55); AST (SGOT) 16 U/L (5-34); Albumin 3.9 g/dL (3.4-4.8); Alkaline Phosphatase 78 U/L (40-110); Bilirubin, Total 0.5 mg/dL (0.2-1.2); Calcium 9.1 mg/dL (7.8-10.44); Globulin 2.7 g/dL (2.4-3.5); Glucose 162 mg/dL (80-115); Protein, Total 6.6 g/dL (5.8-8.1)
[2020-09-07] MEDS ORDERED: Aspirin 325 MG TAB ONE ×2 (01:37→01:40)
[2020-09-07] MEDS ORDERED: Ondansetron PF 4 MG/2 ML Vial IVP PRN (04:34)
[2020-09-07] MEDS ORDERED: cloNIDine 0.1 MG TAB PO PRN (04:34)
[2020-09-07] MEDS ORDERED: Guaifenesin DM 100-10/5 ML UDCUP PO PRN (04:34)
[2020-09-07] MEDS ORDERED: Promethazine HCl 12.5 MG in Sodium Chloride 0.9% 50 ML IVPB PRN (04:34)
[2020-09-07] MEDS ORDERED: Labetalol HCl 100 MG/20 ML VIAL SLOW IVP PRN (04:35)
[2020-09-07] MEDS ORDERED: hydrALAZINE 20 MG/ML VIAL SLOW IVP PRN (04:35)
[2020-09-07 04:38] LABS: Troponin I 0.042 ng/mL (< 0.028)
[2020-09-07] MEDS ORDERED: Electrolyte Replacement Protoc 1 EACH EACH FS SCH (04:45)
--- NOTE | 2020-09-07 04:49 | PDOC.HHP ---
Hospitalist HPI - History of Present Illness Slurred speech, L leg weakness History of Present Illness: Patient is a 65 year old male with PMH CAD, CABG, carotid stenosis, atrial fibrillation, DM, HTN, HLD, CVA, COPD who presents to ED for 3-4 days of slurred speech, L leg weakness. Patient had slurred speech first for a few days, then today about 2 hours before arrival in ED, tried to stand up and was unable due to L leg weakness. He has history of stroke. Patient has a history of CABG and is on aspirin and plavix. Track Laying Equipment Operator is Dr Valadez. He has a history of afib and is not on anticoagulation. Patient has PAD and L carotid stenosis and was scheduled for a carotid endartarectomy on with Dr Valadez. In ED, CT head concerning for worsening encephalomalacia of R MCA territory. Patient out of window of tPA, admitted to stroke unit for further workup. Hospitalist ROS - Review of Systems Constitutional: denies: fever, chills, sweats, weakness, malaise, other Eyes: denies: pain, vision change, conjunctivae inflammation, eyelid inflammation, redness, other ENT: denies: ear pain, ear discharge, nose pain, nose discharge, nose congestion, mouth pain, mouth swelling, throat pain, throat swelling, other Respiratory: denies: cough, dry, shortness of breath, hemoptysis, SOB with excertion, pleuritic pain, sputum, wheezing, other Cardiovascular: denies: chest pain, palpitations, orthopnea, paroxysmal noc. dyspnea, edema, light headedness, other Gastrointestinal: denies: nausea, vomiting, abdominal pain, diarrhea, constipation, melena, hematochezia, other Genitourinary: denies: dysuria, frequency, incontinence, hematuria, retention, other Musculoskeletal: denies: neck pain, shoulder pain, arm pain, back pain, hand pain, leg pain, foot pain, other Skin: denies: rash, lesions, seema, bruising, other Neurological: reports: weakness, numbness, change in speech. denies: incoordination, confusion, seizures, other All other systems reviewed; all pertinent +/- noted in HPI/Subj - Medication Medications: clopidogrel SatSep 07, 2020 02:11 JACKIE Carbajal, Frantz TABLET : Strength - 75 mg : ORAL Patient Dose: 75 mg Oral once a day. metFORMIN SatSep 07, 2020 02:11 JACKIE Carbajal Lee TABLET : Strength - 500 mg : ORAL Patient Dose: 850 mg Oral 2 times a day (with meals). Lasix oral SatSep 07, 2020 02:11 JACKIE Carbajal Lee TABLET : Strength - 20 mg : ORAL Patient Dose: 20 mg Oral once a day. carvedilol SatSep 07, 2020 02:11 JACKIE Carbajal Lee TABLET : Strength - 12.5 mg : ORAL Patient Dose: 12.5 mg Oral 2 times a day. Chantix SatSep 07, 2020 02:11 JACKIE Carbajal Lee TABLET : Strength - 1 mg : ORAL Patient Dose: 1 mg Oral.SEE RX DIRECTIONS ON BOTTLE/TAPER REGIMEN. aspirin oral SatSep 07, 2020 02:11 JACKIE Carbajal Lee TABLET : Strength - 81 mg : ORAL Patient Dose: 162 mg Oral once a day (in the morning). atorvastatin SatSep 07, 2020 02:11 JACKIE Carbajal Lee tablet : Strength - 20 mg : ORAL Patient Dose: 1 tab(s) Oral once a day (in the morning). mirtazapine SatSep 07, 2020 02:12 JACKIE Carbajal Lee tablet : Strength - 15 mg : ORAL Patient Dose: 1 tab(s) Oral once a day (in the morning). venlafaxine SatSep 07, 2020 02:12 JACKIE Carbajal Lee tablet : Strength - 37.5 mg : ORAL Patient Dose: 1 tab(s) Oral once a day (in the morning). Hospitalist History - Past Medical History Other Medical History: CAD, CABG, carotid stenosis, atrial fibrillation, DM, HTN, HLD, CVA, COPD - Past Surgical History Past Surgical History: reports: Appendectomy, CABG Other Surgical History: pacemaker, cabg, appendectomy - Family History Family History: reports: no pertinent history - Social History Smoking Status: Former smoker Alcohol: reports: None Drugs: reports: none - Exam General Appearance: NAD, awake alert Eye: PERRL, anicteric sclera ENT: normocephalic atraumatic, no oropharyngeal lesions, moist mucosa Neck: supple, symmetric, no JVD, no thyromegaly, no lymphadenopathy, no carotid bruit Heart: RRR, no murmur, no gallops, no rubs, normal peripheral pulses Respiratory: CTAB, no wheezes, no rales, no ronchi, normal chest expansion, no tachypnea, normal percussion Gastrointestinal: soft, non-tender, non-distended, normal bowel sounds, no palpable masses, no hepatomegaly, no splenomegaly, no bruit Extremities: no cyanosis, no clubbing, no edema Skin: normal turgor, no lesions, no rashes Neurological - other findings: slurred speech, L leg numbness/weakness 4/5 strength, all else normal Musculoskeletal: normal tone, normal strength, no muscle wasting Psychiatric: normal affect, normal behavior, A&O x 3 Hospitalist Results - Labs Result Diagrams: 09/07/20 00:44 09/07/20 00:44 Lab results: WBC 8.2 thou/uL (4.8-10.8) 09/07/20 00:44 Hgb 16.3 g/dL (14.0-18.0) 09/07/20 00:44 Hct 47.8 % (42.0-52.0) 09/07/20 00:44 MCV 90.5 fL (78.0-98.0) 09/07/20 00:44 Plt Count 165 thou/uL (130-400) 09/07/20 00:44 Neutrophils % 68.5 % (42.0-75.0) 09/07/20 00:44 Sodium 138 mmol/L (136-145) 09/07/20 00:44 Potassium 4.5 mmol/L (3.5-5.1) 09/07/20 00:44 Chloride 107 mmol/L (98-107) 09/07/20 00:44 Carbon Dioxide 21 mmol/L (23-31) L 09/07/20 00:44 BUN 28 mg/dL (8.4-25.7) H 09/07/20 00:44 Creatinine 1.29 mg/dL (0.7-1.3) 09/07/20 00:44 Glucose 162 mg/dL (80-115) H 09/07/20 00:44 Calcium 9.1 mg/dL (7.8-10.44) 09/07/20 00:44 Total Bilirubin 0.5 mg/dL (0.2-1.2) 09/07/20 00:44 AST 16 U/L (5-34) 09/07/20 00:44 ALT 13 U/L (8-55) 09/07/20 00:44 Alkaline Phosphatase 78 U/L (40-110) 09/07/20 00:44 Troponin I 0.015 ng/mL (< 0.028) 09/07/20 00:44 Serum Total Protein 6.6 g/dL (5.8-8.1) 09/07/20 00:44 Albumin 3.9 g/dL (3.4-4.8) 09/07/20 00:44 Additional comment: VITAL SIGNS SatSep 07, 2020 03:00 JACKIE Carbajal, Frantz BP: 154/80 Pulse: 62 Resp: 14 Temp: 98.1 (Oral) Pain: 0 O2 sat: 96 on (Room Air) Time: 09/07/2020 03:00. labs, imaging reports, ED documents, EKG reviewed - EKG Interpretation EKG: sinus rhythm, 72 bpm, pvcs, nonspecific t wave changes, 1st degree avb w VA 218, no acute ST elevations, nonspecific T wave changes. Hospitalist H&P A/P - Plan Plan: Patient is a 65 year old male with PMH CAD, CABG, carotid stenosis, atrial fibrillation, DM, HTN, HLD, CVA, COPD who presents to ED for 3-4 days of slurred speech, L leg weakness. # acute stroke # history of CAD, CABG, HTN, afib, carotid stenosis, HLD, old CVA patient had slurred speech first for a few days, then today about 2 hours before arrival in ED, tried to stand up and was unable due to L leg weakness. He has history of stroke. Patient has a history of CABG and is on aspirin and plavix. Track Laying Equipment Operator is Dr Valadez. He has a history of afib and is not on anticoagulation. Patient has PAD and L carotid stenosis and was scheduled for a carotid endartarectomy on with Dr Valadez. In ED, CT head concerning for worsening encephalomalacia of R MCA territory. Patient out of window of tPA, admitted to stroke unit for further workup. - admit to stroke unit - carotid duplex, echo, MRI ordered - consult neurology - consult Dr Valadez - continue ASA, plavix, statin - continue home meds as appropriate - DVT dose lovenox, defer decision on when to start full anticoagulation to specialists # DM - SSI DVT/GI ppx full code
[2020-09-07] MEDS ORDERED: Acetaminophen 500 MG TAB ONE (04:58)
[2020-09-07] MEDS: Acetaminophen 325 MG TAB PO PRN (04:58)
[2020-09-07] MEDS ORDERED: Bacitracin 1 PK ONE ×2 (05:34→05:35)
[2020-09-07 07:19] LABS: Troponin I 0.035 ng/mL (< 0.028)
--- NOTE | 2020-09-07 07:47 | CT ---
PRELIMINARY REPORT/[facility]/EMERGENCY AFTER HOURS PROCEDURE Receipt of this report by the clinical staff was confirmed with Frantz Carbajal RN by Carmen Barbosa on Sep 07, 2020 01:19:00 CDT. Addendum electronically signed by Carmen Barbosa on September 07, 2020 1:19:48 AM CDT EXAM: CT Head Without Intravenous Contrast. CLINICAL HISTORY: Patient presents with slurred speech for 4 days. He sought medical care tonight due to weakness in hi s left leg. He says approximately 2-1/2 hours ago he tried to stand up out of his chair and was unable to due to weakness in the left leg. He denies headache, neck pain, chest pain, and back pain. Patient has a previous history of stroke. TECHNIQUE: Axial computed tomography images of the head/brain without intravenous contrast. COMPARISON: CT\SR - CT BRAIN WO CON - 08/31/2018 03:43 PM CDT FINDINGS: BRAIN: Large area of right MCA territory encephalomalacia consistent with infarct, worsened when compared to prior. Some of the interval worsening appears to be old; however, in the penumbral regions, acute on chronic infarct is not excluded. MRI with diffusion-weighted imaging would be useful for further e valuation. Diffuse cerebral atrophy. There are subcortical and deep white matter hypodensities which are nonspecific but which statistical ly most likely reflect changes of chronic small vessel ischemic disease. ORBITS: The orbits are unremarkable. SINUSES AND MASTOIDS: Right maxillary sinusitis with near-complete opacification of the right maxillary sinus. SOFT TISSUES: No significant facial or scalp soft tissue swelling evident. No radiopaque foreign body is seen. BONES: No acute skull fracture. MISCELLANEOUS: Atherosclerosis. IMPRESSION: *1. Large area of right MCA territory encephalomalacia consistent with infarct, worsened when compare d to prior. Some of the interval worsening appears to be old; however, in the penumbral regions, acute on chronic infarct is not excluded. MRI with diffusion-weighted imaging would be useful for fur ther evaluation. 2. Diffuse cerebral atrophy. 3. There are subcortical and deep white matter hypodensities which are nonspecific but which statisti larry most likely reflect changes of chronic small vessel ischemic disease. 4. Atherosclerosis. ELECTRONICALLY SIGNED BY: Jose Elias Brothers MD Sep 07, 2020 1:12:25 AM CDT This report is intended for review by the ordering physician only, in accordance of law. If you recei ve this report in error, please call [facility] at [phone]. FINAL REPORT Final report by Dr. Perdomo Emergency after-hours study CT BRAIN NONCONTRAST: DATE: 09/07/2020 12:54 AM HISTORY: 65-year-old male with stroke: Dysarthria and left-sided weakness. COMPARISON: 09/08/2019 FINDINGS: No major disagreement with preliminary report by [facility]. IMPRESSION: 1) no acute intracranial findings. 2) large old infarction in right middle cerebral artery territory. 3) multiple tiny old lacunar infarctions involving bilateral basal ganglia, right external capsule, a nd bilateral cerebellar hemispheres. 4) high-grade chronic ischemic white matter changes. 5) no significant interval change. Transcribed Date/Time: 09/07/2020 7:58 AM
--- NOTE | 2020-09-07 07:50 | RAD ---
PORTABLE CHEST: INDICATION: Left side weakness and dizziness. FINDINGS: Lung bell are clear. No evidence of infiltrate or vascular congestion. Heart size is mildly promi nent with postop sternotomy change. AICD lead is again noted. No significant change when compared to a prior exam of 09/26/2017. IMPRESSION: No acute process. POS: AGW
--- NOTE | 2020-09-07 08:00 | ULT ---
Carotid duplex sonogram HISTORY: CVA. Vascular disease. COMPARISON: CT angiogram 10/08/2019. FINDINGS: Right: Prominent plaque. Color and spectral Doppler flow seen within the common carotid art osmani and external carotid artery, with elevated peak systolic velocity of 249 cm/s at the origin of the ECA. No flow is seen within the internal carotid artery. Right vertebral artery not visualized. Along the right jugular chain, lobular hypoechoic masses consistent with lymph nodes measure up to 3. 4 cm greatest diameter. Left: Prominent plaque. Color and spectral Doppler evaluation, peak systolic velocity of 367 cm/s, an d IC to CC ratio of 4.7 suggest high-grade stenosis within the proximal left ICA estimated at greater than 80%. Antegrade flow within the vertebral artery. IMPRESSION : Chronic occlusion of the right internal carotid artery, as documented on prior imaging. Incidental no te of high-grade stenosis at the origin of the right external carotid artery. Very high-grade stenosis at the origin of the left external carotid artery, estimated at greater than 80%. Persistent right internal jugular chain adenopathy.
[2020-09-07] MEDS ORDERED: Aspirin Chewable 81 MG TAB ONE (08:15)
[2020-09-07] MEDS ORDERED: Clopidogrel Bisulfate 75 MG TAB ONE (08:15)
[2020-09-07] MEDS ORDERED: Enoxaparin Sodium 40 MG/0.4 ML SYRINGE ONE (08:15)
[2020-09-07] MEDS ORDERED: Famotidine 20 MG TAB ONE (08:15)
[2020-09-07] MEDS: Clopidogrel Bisulfate 75 MG TAB PO SCH (08:30)
[2020-09-07] MEDS: Aspirin 81 mg Enteric Coated Tablet PO SCH (08:30)
[2020-09-07] MEDS: Enoxaparin Sodium 40 MG/0.4 ML SYRINGE SC SCH (08:31)
[2020-09-07] MEDS: Famotidine 20 MG TAB PO SCH ×2 (08:34→20:29)
[2020-09-07] MEDS: Varenicline Tartrate 0.5 MG TAB PO SCH ×2 (08:35→20:30)
[2020-09-07] MEDS ORDERED: Nicotine 14 MG PATCH TOP SCH (10:30)
[2020-09-07] MEDS ORDERED: Insulin Regular 300 UNITS/3 ML VIAL ONE (11:02)
[2020-09-07] MEDS: Insulin Regular 300 UNITS/3 ML VIAL SC PRN (11:34)
[2020-09-07 12:01] LABS: SARS-CoV-2 MS2 Positive; SARS-CoV-2 N Gene Negative; SARS-CoV-2 S Gene Negative; SARS-CoV-2 by NAA Not Detected (NotDetected); SARS-CoV-2 orf1ab Negative
--- NOTE | 2020-09-07 15:26 | CON ---
NEUROLOGY CONSULTATION DATE OF CONSULTATION: 09/07/2020 REASON FOR CONSULTATION: Slurred speech, left leg weakness, rule out CVA. HISTORY OF PRESENT ILLNESS: Mr. Joseph Stubbs is a 65-year-old male with medical history significant for coronary artery disease, CABG, carotid stenosis, atrial fibrillation, diabetes, hypertension, hyperlipidemia, prior CVA, COPD, presented to the emergency room with 3 to 4 day history of slurred speech and left leg weakness. Per the patient, he has problems with his speech since the last few days, but then 2 hours before arrival, he was unable to bear weight on his left leg and was unable to walk. He does have history of prior stroke and CABG and he is on aspirin and Plavix. His jogger operator is Dr. Valadez. He does have history of atrial fibrillation, but is not on any anticoagulation at this time. He has peripheral artery disease and left carotid stenosis and is also scheduled for carotid endarterectomy by Dr. Valadez on 13. Head CT was done, which shows worsening encephalomalacia in the right MCA territory. He was out of the window for tPA, so he was admitted for further stroke workup. The patient denies nausea, vomiting, headache, chest pain, abdominal pain, problem with swallowing, double vision, loss of vision, loss of consciousness, or seizure-like activity associated with these new deficits. All 14 systems were reviewed and were negative except pertinent positives and negatives mentioned in the HPI. HOME MEDICATIONS: 1. Plavix 75 mg daily. 2. Metformin 850 mg twice daily. 3. Lasix 20 mg once daily. 4. Carvedilol 12.5 mg twice daily. 5. Chantix 1 mg oral. 6. Aspirin 162 mg daily. 7. Atorvastatin 20 mg daily. 8. Mirtazapine 15 mg daily. 9. Venlafaxine 37.5 mg once daily. PAST MEDICAL HISTORY: Coronary artery disease, CABG, carotid stenosis, atrial fibrillation, diabetes mellitus, hypertension, hyperlipidemia, CVA, COPD. PAST SURGICAL HISTORY: Appendectomy, CABG, pacemaker insertion, appendicectomy. FAMILY HISTORY: No family history of stroke. SOCIAL HISTORY: The patient denies smoking, alcohol, or illegal drug use. ALLERGIES: NKDA REVIEW OF SYSTEMS: Constitutional: denies: fever, chills, sweats, weakness, malaise, other Eyes: denies: pain, vision change, conjunctivae inflammation, eyelid inflammation, redness, other ENT: denies: ear pain, ear discharge, nose pain, nose discharge, nose congestion, mouth pain, mouth swelling, throat pain, throat swelling, other Respiratory: denies: cough, dry, shortness of breath, hemoptysis, SOB with excertion, pleuritic pain, sputum, wheezing, other Cardiovascular: denies: chest pain, palpitations, orthopnea, paroxysmal noc. dyspnea, edema, light headedness, other Gastrointestinal: denies: nausea, vomiting, abdominal pain, diarrhea, constipation, melena, hematochezia, other Genitourinary: denies: dysuria, frequency, incontinence, hematuria, retention, other Musculoskeletal: denies: neck pain, shoulder pain, arm pain, back pain, hand pain, leg pain, foot pain, other Skin: denies: rash, lesions, seema, bruising, other Neurological: reports: weakness, numbness, change in speech. denies: incoordination, confusion, seizures, other All other systems reviewed; all pertinent +/- noted in HPI/Subj - Exam General Appearance: NAD, awake alert Eye: PERRL, anicteric sclera ENT: normocephalic atraumatic, no oropharyngeal lesions, moist mucosa Neck: supple, symmetric, no JVD, no thyromegaly, no lymphadenopathy, no carotid bruit Heart: RRR, no murmur, no gallops, no rubs, normal peripheral pulses Respiratory: CTAB, no wheezes, no rales, no ronchi, normal chest expansion, no tachypnea, normal percussion Gastrointestinal: soft, non-tender, non-distended, normal bowel sounds, no palpable masses, no hepatomegaly, no splenomegaly, no bruit Extremities: no cyanosis, no clubbing, no edema Skin: normal turgor, no lesions, no rashes Neurological - Mental status, the patient is alert and oriented to person, place, and time. Speech is slurred. Cranial nerves 2 through 12 intact except 7 facial droop and 9, 10 dysarthria. Rest of them are unremarkable. Motor; muscle, tone, and bulk are normal. Strength 4/5 in the left. Moving all 4 extremities equally and symmetrically 5/5 except left leg 4/5. Decreased sensation to light touch on the left. Cerebellar, finger-nose testing slow on the left. Gait deferred due to patient's safety reason. DATA REVIEWED: I reviewed the labs which shows hyperglycemia 162. Head CT reviewed which showed worsening encephalomalacia in the right middle cerebral artery territory. Lab results: WBC 8.2 thou/uL (4.8-10.8) 09/07/20 00:44 Hgb 16.3 g/dL (14.0-18.0) 09/07/20 00:44 Hct 47.8 % (42.0-52.0) 09/07/20 00:44 MCV 90.5 fL (78.0-98.0) 09/07/20 00:44 Plt Count 165 thou/uL (130-400) 09/07/20 00:44 Neutrophils % 68.5 % (42.0-75.0) 09/07/20 00:44 Sodium 138 mmol/L (136-145) 09/07/20 00:44 Potassium 4.5 mmol/L (3.5-5.1) 09/07/20 00:44 Chloride 107 mmol/L (98-107) 09/07/20 00:44 Carbon Dioxide 21 mmol/L (23-31) L 09/07/20 00:44 BUN 28 mg/dL (8.4-25.7) H 09/07/20 00:44 Creatinine 1.29 mg/dL (0.7-1.3) 09/07/20 00:44 Glucose 162 mg/dL (80-115) H 09/07/20 00:44 Calcium 9.1 mg/dL (7.8-10.44) 09/07/20 00:44 Total Bilirubin 0.5 mg/dL (0.2-1.2) 09/07/20 00:44 AST 16 U/L (5-34) 09/07/20 00:44 ALT 13 U/L (8-55) 09/07/20 00:44 Alkaline Phosphatase 78 U/L (40-110) 09/07/20 00:44 Troponin I 0.015 ng/mL (< 0.028) 09/07/20 00:44 Serum Total Protein 6.6 g/dL (5.8-8.1) 09/07/20 00:44 Albumin 3.9 g/dL (3.4-4.8) 09/07/20 00:44 ASSESSMENT AND PLAN: Mr. Joseph white is a 65-year-old male with medical history significant for coronary artery disease; CABG; history of carotid stenosis, scheduled for carotid endarterectomy on by Dr. Valadez; atrial fibrillation; diabetes; hypertension; hyperlipidemia; prior CVA and COPD, presented with 3-to 4-day history of slurred speech and new onset of left lower extremity weakness. Concern about acute stroke. Continue aspirin and Plavix for secondary stroke prevention. Start high-intensity statin for secondary stroke prevention. Neuro checks every 4 hours, telemetry. The patient does have history of atrial fibrillation, consider cardiology input. Consider MRI if pacemaker is compatible, otherwise repeat head CT tomorrow. 2D echo and carotid Dopplers. Neuro checks every 4 hours. Permissive control of blood pressure at this time. Strict control of blood glucose. PT/OT/Speech. N.p.o. until cleared by Speech. Bedside swallow eval by nursing staff. Continue medical management per primary team and Cardiology. We will continue to follow. Thank you for the consult. Job ID: [id number] [facility]ITALMeme
[2020-09-07 16:47] VITALS: BMI 32.9
[2020-09-07] MEDS: Mometasone Furoate 30 PUFF 220 MCG INH SCH (19:16)
[2020-09-07] MEDS: Atorvastatin Calcium 40 MG TAB PO SCH (20:29)
[2020-09-07] MEDS ORDERED: Melatonin 3 MG TAB PO PRN (23:59)
[2020-09-08] MEDS ORDERED: Sodium Chloride 0.65% Nasal 44 ML BOT EA NARE PRN (06:30)
[2020-09-08 07:16] LABS: #Eosinphils 0.3 thou/uL (0.0-0.7); #Lymphocytes 1.1 thou/uL (1.20-3.40); #Monocytes 0.7 thou/uL (0.11-0.59); #Neutrophils 5.4 thou/uL (1.40-6.50); %Basophils 0.2 % (0.0-1.0); %Eosinophils 4.1 % (0.0-10.0); %Lymphocytes 14.4 % (21.0-51.0); %Monocytes 8.8 % (0.0-10.0); %Neutrophils 72.5 % (42.0-75.0); Hemoglobin 16.3 g/dL (14.0-18.0); Mean Corpuscular HGB CONC 33.7 g/dL (32.0-36.0); Mean Corpuscular Hemoglobin 30.8 pg (27.0-31.0); Mean Corpuscular Volume 91.4 fL (78.0-98.0); Mean Platelet Volume 9.6 fL (7.4-10.4); RBC Distribution Width 13.2 % (11.5-14.5); Red Blood Cell (RBC) Count 5.31 mill/uL (4.70-6.10); White Blood Cell (WBC) Count 7.4 thou/uL (4.8-10.8)
[2020-09-08 07:19] LABS: Platelet Count 163 thou/uL (130-400)
[2020-09-08 09:46] LABS: Anion Gap 14 mmol/L (10-20); BUN (Urea Nitrogen) 23 mg/dL (8.4-25.7); Calc. Creatinine Clearance 102 mL/min (70-130); Calcium 9.2 mg/dL (7.8-10.44); Carbon Dioxide 20 mmol/L (23-31); Cardiac Risk 5.1 (Less than 4.5); Chloride 105 mmol/L (98-107); Cholesterol 159 mg/dl (< 200 Desired); Estimated GFR-MDRD 65; Glucose 140 mg/dL (80-115); HDL Cholesterol 31 mg/dL (>60 Neg Risk); LDL Cholesterol, Calculated 105 mg/dL; Potassium 4.4 mmol/L (3.5-5.1); Sodium 135 mmol/L (136-145); Triglycerides 114 mg/dL (Less than 150)
[2020-09-08] MEDS: Enoxaparin Sodium 40 MG/0.4 ML SYRINGE SC SCH (10:24)
[2020-09-08] MEDS: Famotidine 20 MG TAB PO SCH ×3 (10:26→21:13)
[2020-09-08] MEDS: Varenicline Tartrate 0.5 MG TAB PO SCH ×2 (10:26→21:11)
[2020-09-08] MEDS: Aspirin 81 mg Enteric Coated Tablet PO SCH (10:27)
[2020-09-08] MEDS: Clopidogrel Bisulfate 75 MG TAB PO SCH (10:27)
[2020-09-08] MEDS ORDERED: Magnesium 2 GM/50 ML 2 GM in Premix Bag 1 BAG IVPB SCH (11:00)
--- NOTE | 2020-09-08 11:50 | PDOC.NEUPN ---
- Subjective Encounter Date: 09/08/20 Subjective: Continues to have slurred speech. - Objective Vital Signs & Weight: Vital Signs (12 hours) Temp Pulse Resp BP Pulse Ox 09/08/20 10:37 80 14 09/08/20 08:00 97.4 F L 64 13 151/97 H 96 09/08/20 07:05 70 16 09/08/20 04:15 98.1 F 79 18 139/93 H 97 Weight Weight 242 lb 14.4 oz I&O: 09/07/20 09/08/20 09/09/20 06:59 06:59 06:59 Intake Total 820 240 Balance 820 240 Result Diagrams: 09/08/20 03:30 09/08/20 04:40 Additional Labs: Accuchecks 09/08/20 09/08/20 09/07/20 10:54 05:52 21:10 POC Glucose 177 H 138 H 134 H 09/07/20 09/07/20 17:17 10:54 POC Glucose 117 H 159 H Radiology Reviewed by me: Yes EKG Reviewed by me: Yes ROS - Review of Systems Eyes: denies: pain, vision change, conjunctivae inflammation, eyelid inflammation, redness, other ENT: denies: ear pain, ear discharge, nose pain, nose discharge, nose congestion, mouth pain, mouth swelling, throat pain, throat swelling, other Gastrointestinal: denies: nausea, vomiting, abdominal pain, diarrhea, constipation, melena, hematochezia, other Musculoskeletal: denies: neck pain, shoulder pain, arm pain, back pain, hand pain, leg pain, foot pain, other Neurological: reports: weakness, numbness, incoordination, change in speech. denies: confusion, seizures, other All Systems: All other systems reviewed; all pertinent +/- noted in HPI/Subj - Medication Medications: Active Medications Generic Name Dose Route Start Last Admin Trade Name Freq PRN Reason Stop Dose Admin Acetaminophen 650 mg 09/07/20 04:34 09/07/20 04:58 Acetaminophen 325 Mg Tab PO 650 mg Q4H PRN Administration Headache/Fever/Mild Pain (1-3) Albuterol/Ipratropium 3 ml 09/07/20 07:00 09/08/20 10:37 Ipratropium/Albuterol Sulfate 3 Ml Neb NEB 3 ml [id number] VIRI Administration Aspirin 81 mg 09/07/20 09:00 09/08/20 10:27 Aspirin 81 Mg Enteric Coated Tablet PO 81 mg DAILY VIRI Administration Atorvastatin Calcium 40 mg 09/07/20 21:00 09/07/20 20:29 Atorvastatin Calcium 40 Mg Tab PO 40 mg HS VIRI Administration Clopidogrel Bisulfate 75 mg 09/07/20 09:00 09/08/20 10:27 Clopidogrel Bisulfate 75 Mg Tab PO 75 mg DAILY VIRI Administration Enoxaparin Sodium 40 mg 09/07/20 09:00 09/08/20 10:24 Enoxaparin Sodium 40 Mg/0.4 Ml Syringe SC 40 mg 0900 VIRI Administration Famotidine 20 mg 09/07/20 09:00 09/08/20 10:26 Famotidine 20 Mg Tab PO 20 mg BID VIRI Administration Insulin Human Regular 0 units 09/07/20 04:35 09/07/20 11:34 Insulin Regular 300 Units/3 Ml Vial SC 2 unit .MODERATE SLIDING SC PRN Administration Moderate Correctional Scale Melatonin 3 mg 09/07/20 23:59 09/08/20 00:21 Melatonin 3 Mg Tab PO 3 mg HSPRN PRN Administration Insomnia Mometasone Furoate 1 puff 09/07/20 18:30 09/07/20 19:16 Mometasone Furoate 30 Puff 220 Mcg INH 1 puff 1830 VIRI Administration Sodium Chloride 10 ml 09/07/20 04:35 09/08/20 10:25 Flush - Normal Saline 10 Ml Syringe IVF 10 ml PRN PRN Administration Saline Flush Sodium Chloride 0 ml 09/08/20 06:30 09/08/20 10:24 Sodium Chloride 0.65% Nasal 44 Ml Bot EA NARE 1 spr PRN PRN Administration Nasal Dryness Varenicline 1 mg 09/07/20 09:00 09/08/20 10:26 Varenicline Tartrate 0.5 Mg Tab PO 1 mg BID VIRI Administration - Exam General Appearance: awake alert Eye: PERRL ENT: normocephalic atraumatic Neck: supple Respiratory: CTAB Cardiovascular: RRR Gastrointestinal: soft Extremities: no cyanosis Skin: normal turgor Neurological: no new deficit, facial droop, hemiplegia, speech deficit Musculoskeletal: normal tone, no muscle wasting PSYCH: normal affect, normal behavior, A&O x 3 Results - Labs Result Diagrams: 09/08/20 03:30 09/08/20 04:40 Lab results: WBC 7.4 thou/uL (4.8-10.8) 09/08/20 03:30 Hgb 16.3 g/dL (14.0-18.0) 09/08/20 03:30 Hct 48.5 % (42.0-52.0) 09/08/20 03:30 MCV 91.4 fL (78.0-98.0) 09/08/20 03:30 Plt Count 163 thou/uL (130-400) 09/08/20 03:30 Neutrophils % 72.5 % (42.0-75.0) 09/08/20 03:30 Sodium 135 mmol/L (136-145) L 09/08/20 04:40 Potassium 4.4 mmol/L (3.5-5.1) 09/08/20 04:40 Chloride 105 mmol/L (98-107) 09/08/20 04:40 Carbon Dioxide 20 mmol/L (23-31) L 09/08/20 04:40 BUN 23 mg/dL (8.4-25.7) 09/08/20 04:40 Creatinine 1.14 mg/dL (0.7-1.3) 09/08/20 04:40 Glucose 140 mg/dL (80-115) H 09/08/20 04:40 Calcium 9.2 mg/dL (7.8-10.44) 09/08/20 04:40 Total Bilirubin 0.5 mg/dL (0.2-1.2) 09/07/20 00:44 AST 16 U/L (5-34) 09/07/20 00:44 ALT 13 U/L (8-55) 09/07/20 00:44 Alkaline Phosphatase 78 U/L (40-110) 09/07/20 00:44 Troponin I 0.035 ng/mL (< 0.028) H 09/07/20 06:38 Serum Total Protein 6.6 g/dL (5.8-8.1) 09/07/20 00:44 Albumin 3.9 g/dL (3.4-4.8) 09/07/20 00:44 - Radiology Interpretation CT scan - head Status: image reviewed by me, report reviewed by me Additional Comment: Head CT showed interval worsening of the right MCA territory encephalomalacia. There is a concern about acute on chronic intracranial process. MRI brain is recommended. PN A/P (1) Acute CVA (cerebrovascular accident) Code(s): I63.9 - CEREBRAL INFARCTION, UNSPECIFIED Status: Acute (2) Acute on chronic systolic ACC/AHA stage C congestive heart failure Code(s): I50.23 - ACUTE ON CHRONIC SYSTOLIC (CONGESTIVE) HEART FAILURE Status: Acute (3) COPD (chronic obstructive pulmonary disease) Status: Acute (4) STEMI (ST elevation myocardial infarction) Status: Acute (5) CAD (coronary artery disease) Code(s): I25.10 - ATHSCL HEART DISEASE OF [place] CORONARY ARTERY W/O ANG PCTRS Status: Chronic Qualifiers: Coronary Disease-Associated Artery/Lesion type: bypass graft [place] vs. transplanted heart: [place] heart Associated angina: without angina Qualified Code(s): I25.810 - Atherosclerosis of coronary artery bypass graft(s) without angina pectoris (6) H/O: CVA (cerebrovascular accident) Code(s): Z86.73 - PRSNL HX OF TIA (TIA), AND CEREB INFRC W/O RESID DEFICITS Status: Chronic (7) HLD (hyperlipidemia) Code(s): E78.5 - HYPERLIPIDEMIA, UNSPECIFIED Status: Chronic Qualifiers: Hyperlipidemia type: unspecified Qualified Code(s): E78.5 - Hyperlipidemia, unspecified (8) HTN (hypertension) Code(s): I10 - ESSENTIAL (PRIMARY) HYPERTENSION Status: Chronic Qualifiers: Hypertension type: essential hypertension Qualified Code(s): I10 - Essential (primary) hypertension (9) Tobacco dependence Code(s): F17.200 - NICOTINE DEPENDENCE, UNSPECIFIED, UNCOMPLICATED Status: Chronic (10) Hypertensive urgency Code(s): I16.0 - HYPERTENSIVE URGENCY Status: Resolved - Plan Daily Plan: PT/OT, speech therapy, DVT proph w/lovenox 65-year-old male with history significant for prior stroke in the right MCA territory, hypertension hyperlipidemia coronary artery disease atrial fibrillation carotid stenosis and scheduled for surgery carotid endarterectomy on September 13 presented with acute worsening of speechdysarthria and left leg weakness. Concern about new stroke. MRI of the brain to evaluate for acute intracranial process is compatible with pacemaker otherwise repeat head CT 48 hours after symptom onset. 2D echo reviewed and results noted. Moderate enlargement of the left ventricle with left ventricular ejection fraction 30 to 35%. Telemetry. Has history of atrial fibrillation and not on anticoagulation. Consider cardiology input Carotid Dopplers completed and results reviewed. Complete occlusion of the right internal carotid artery and critical stenosis of the left internal carotid artery. The patient is scheduled for surgery by Dr. Valadez. Consider Dr. Valadez input. Neuro checks every 4 hours. Permissive control of blood pressure at this time. Strict control of blood glucose. Continue Plavix and high intensity statin for secondary stroke prevention. Continue home medications. PT/OT/speech Continue medical management per primary team and cardiology. Plan discussed in detail with the patient and also during MDR rounds.
--- NOTE | 2020-09-08 11:59 | PDOC.HOSPP ---
- Subjective Encounter Date: 09/08/20 Encounter Time: 11:50 Subjective: f/u for acute/chronic R MCA territorial CVA on ASA/Plavix. Carotid artery stenosis noted with plans for endarterectomy. Tolerating po intake currently. - Objective Vital Signs & Weight: Vital Signs (12 hours) Temp Pulse Resp BP Pulse Ox 09/08/20 10:37 80 14 09/08/20 08:00 97.4 F L 64 13 151/97 H 96 09/08/20 07:05 70 16 09/08/20 04:15 98.1 F 79 18 139/93 H 97 Weight Weight 242 lb 14.4 oz I&O: 09/07/20 09/08/20 09/09/20 06:59 06:59 06:59 Intake Total 820 240 Balance 820 240 Result Diagrams: 09/08/20 03:30 09/08/20 04:40 Additional Labs: Accuchecks 09/08/20 09/08/20 09/07/20 10:54 05:52 21:10 POC Glucose 177 H 138 H 134 H 09/07/20 09/07/20 17:17 10:54 POC Glucose 117 H 159 H Laboratory Tests 09/07/20 09/07/20 09/07/20 00:44 03:05 03:50 Magnesium Troponin I 0.015 0.042 H Triglycerides Cholesterol LDL Cholesterol, Calc HDL Cholesterol SARS-CoV-2 (PCR) Not Detected 09/07/20 09/08/20 06:38 04:40 Magnesium 2.0 Troponin I 0.035 H Triglycerides 114 Cholesterol 159 LDL Cholesterol, Calc 105 HDL Cholesterol 31 SARS-CoV-2 (PCR) Radiology Reviewed by me: Yes (Echo - EF 30-35%, mod MR, mod LAE) EKG Reviewed by me: Yes (Tele - SR) Hospitalist ROS - Medication Medications: Active Medications Generic Name Dose Route Start Last Admin Trade Name Freq PRN Reason Stop Dose Admin Acetaminophen 650 mg 09/07/20 04:34 09/07/20 04:58 Acetaminophen 325 Mg Tab PO 650 mg Q4H PRN Administration Headache/Fever/Mild Pain (1-3) Albuterol/Ipratropium 3 ml 09/07/20 07:00 09/08/20 10:37 Ipratropium/Albuterol Sulfate 3 Ml Neb NEB 3 ml [id number] Administration Aspirin 81 mg 09/07/20 09:00 09/08/20 10:27 Aspirin 81 Mg Enteric Coated Tablet PO 81 mg DAILY VIRI Administration Atorvastatin Calcium 40 mg 09/07/20 21:00 09/07/20 20:29 Atorvastatin Calcium 40 Mg Tab PO 40 mg HS VIRI Administration Clopidogrel Bisulfate 75 mg 09/07/20 09:00 09/08/20 10:27 Clopidogrel Bisulfate 75 Mg Tab PO 75 mg DAILY VIRI Administration Enoxaparin Sodium 40 mg 09/07/20 09:00 09/08/20 10:24 Enoxaparin Sodium 40 Mg/0.4 Ml Syringe SC 40 mg 0900 VIRI Administration Famotidine 20 mg 09/07/20 09:00 09/08/20 10:26 Famotidine 20 Mg Tab PO 20 mg BID VIRI Administration Insulin Human Regular 0 units 09/07/20 04:35 09/07/20 11:34 Insulin Regular 300 Units/3 Ml Vial SC 2 unit .MODERATE SLIDING SC PRN Administration Moderate Correctional Scale Melatonin 3 mg 09/07/20 23:59 09/08/20 00:21 Melatonin 3 Mg Tab PO 3 mg HSPRN PRN Administration Insomnia Mometasone Furoate 1 puff 09/07/20 18:30 09/07/20 19:16 Mometasone Furoate 30 Puff 220 Mcg INH 1 puff 1830 VIRI Administration Sodium Chloride 10 ml 09/07/20 04:35 09/08/20 10:25 Flush - Normal Saline 10 Ml Syringe IVF 10 ml PRN PRN Administration Saline Flush Sodium Chloride 0 ml 09/08/20 06:30 09/08/20 10:24 Sodium Chloride 0.65% Nasal 44 Ml Bot EA NARE 1 spr PRN PRN Administration Nasal Dryness Varenicline 1 mg 09/07/20 09:00 09/08/20 10:26 Varenicline Tartrate 0.5 Mg Tab PO 1 mg BID VIRI Administration - Exam General Appearance: NAD, awake alert Eye: PERRL, anicteric sclera ENT: normocephalic atraumatic, no oropharyngeal lesions Neck: supple, symmetric, no JVD, no thyromegaly, no lymphadenopathy Heart: RRR, no gallops, no rubs, normal peripheral pulses Heart - other findings: S1, S2 Respiratory: CTAB, no wheezes, no rales, no ronchi, normal chest expansion, no tachypnea Gastrointestinal: soft, non-tender, non-distended, normal bowel sounds, no palpable masses Extremities: no cyanosis, no clubbing, no edema Skin: normal turgor, no lesions Neurological - other findings: + dysarthria, L facial droop, L hemiparesis Musculoskeletal: normal tone, generalized weakness Psychiatric: normal affect, A&O x 3 Hosp A/P - Plan A/P: Acute/chronic R MCA territorial CVA - continue ASA/Plavix/Lipitor, Stroke protocol, PT/OT/RESEARCH EDITOR Carotid artery stenosis - Consult Vascular surgery regarding endarterectomy, continue DAP therapy DM II - ISS, serial accuchecks, ADA Ischemic CM - continue DAP, ? resumption of Entresto CAD - med mgmt, no ACS HLD - continue Lipitor CKD II - avoid nephrotoxic meds and limit contrast exposure, serial creatinine CM for SNF vs HH options after d/c
[2020-09-08] MEDS ORDERED: Furosemide 20 MG TAB PO PRN (12:04)
[2020-09-08] MEDS ORDERED: Nitroglycerin 0.4 MG TAB 1 EACH SL PRN (12:04)
[2020-09-08] MEDS ORDERED: Melatonin 3 MG TAB PO PRN (12:09)
[2020-09-08] MEDS: Insulin Regular 300 UNITS/3 ML VIAL SC PRN ×2 (12:50→18:19)
[2020-09-08] MEDS ORDERED: diphenhydrAMINE 25 MG CAP PO PRN (18:03)
[2020-09-08] MEDS: metFORMIN 850 MG TAB PO SCH (18:20)
[2020-09-08] MEDS: Albuterol Sulfate 2.5 mg/3 ml Neb NEB SCH (19:01)
[2020-09-08] MEDS: Mometasone Furoate 30 PUFF 220 MCG INH SCH (19:11)
--- NOTE | 2020-09-08 20:11 | CON ---
DATE OF CONSULTATION: HISTORY OF PRESENT ILLNESS: Joseph Stubbs is a 65-year-old white male who initially presented to [facility] in 06/2002 with a non-Q-wave myocardial infarction. A catheterization showed severe 3-vessel coronary artery disease. He underwent CABG x5 by Dr. Cobos. He had a ANGEL to the LAD, saphenous vein graft to the first diagonal and 1st obtuse marginal, and a vein graft in sequence to the distal right coronary artery and posterolateral medial branch. His postoperative course was unremarkable. He was discharged on postoperative day 5. He again presented late in 07/2002 with a non-Q-wave myocardial infarction. He underwent repeat catheterization, which revealed the vein graft to the first obtuse marginal to be occluded. The 1st and 2nd obtuse marginals were occluded and the 3rd obtuse marginal had an 80% stenosis. The remaining grafts were apparently patent. 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 At that time, he gave a history that in 2014 he had a stroke (he has been on aspirin and Plavix since the time of bypass surgery). The stroke affected his speech as well as strength in his left arm. In 01/2017, he noted increased shortness of breath for 2 to 3 days and woke up in the morning could not catch his breath and called 911. He denies any chest discomfort with that. He was taken to the emergency room in [place], and placed on BiPAP. He was treated with Solu- Medrol, piperacillin, and albuterol nebs. EKG revealed 2-mm ST-segment elevation in leads III, 1 mm in lead aVF with reciprocal changes in I, L, and V6. That was despite not to have any chest discomfort. I was contacted. Due to the distance from our hospital, it was recommended he undergo lytic therapy (it took over 1-1/2 to 2 hours for the patient to arrive by helicopter), This was followed by heparin bolus 4000 units drip at 1000 per hour. He stated that his breathing had dramatically improved. Blood cultures were drawn. He was placed on Levaquin. He had resolution of the ST-segment depression in the inferior leads. During that hospitalization, he underwent cardiac catheterization, which revealed severe global hypokinesis with ejection fraction of 10% to 15% with moderate mitral regurgitation. The left main was normal, 80% proximal LAD, 60% mid LAD, and 70% diagonal. In the circumflex, a 70% proximal stenosis. The 1st obtuse marginal, 2nd obtuse marginal, and 3rd obtuse marginal were all occluded and filled retrograde. The right coronary artery was totally occluded proximally and filled retrograde from the left. Bypass grafts revealed that all were occluded, ANGEL to the LAD, diagonal and 1st obtuse marginal, and a jump graft to the right coronary artery to right posterolateral branch. Due to severe left ventricular dysfunction, it was felt by Dr. Cobos that he was not a candidate for redo CABG and he has been treated medically since that time. During that admission, his troponin increased to 21.7. He also developed nonsustained ventricular tachycardia and was seen by Dr. Jacobson and discharged with a LifeVest. Mr. Stubbs has a very poor compliance and will never come for a followup in the office, although he has had many scheduled. He was not seen again until he presented in 09/2017 with an episode of heart failure. He had some improvement in his ejection fraction to 20% to 25%. He then underwent placement of a single-chamber ICD by Dr. Jacobson on 09/25/2017. In 10/2019, he was admitted with a stroke with slurred speech. Echocardiogram during that admission revealed ejection fraction of 15% to 20%. He was found to have a totally occluded right carotid artery and a string sign of the left carotid artery. It is recommended that he undergo carotid endarterectomy; however, he did not return for followup. He now presents after noticing worsening of his slurred speech for 2 to 3 days and then a fall at home due to left leg weakness. He states that today he has been able to walk up and down the el[place]. He was seen by Dr. Dodson and his plan that he undergo surgery with left carotid endarterectomy next week. Echocardiogram has been repeated and his ejection fraction has improved to 30% to 35%. He denies any chest discomfort or shortness of breath. However, he does state that he has been out of Entresto over the last 2 weeks. PAST MEDICAL HISTORY: 1. Chronic systolic heart failure. 2. Type 2 diabetes. 3. Coronary artery disease. 4. Hypertension. 5. Hyperlipidemia. 6. History of CVAs with left arm weakness and slurred speech. PAST SURGICAL HISTORY: 1. AICD placement (single-chamber). 2. Back surgery. 3. CABG x5. CURRENT MEDICATIONS: 1. Aspirin 81 mg two q.a.m. 2. Clopidogrel 75 mg daily. 3. Atorvastatin 20 daily. 4. Carvedilol 12.5 b.i.d. 5. Furosemide 20 mg p.r.n. 6. Melatonin p.r.n. 7. Metformin 850 mg b.i.d. 8. Mirtazapine 15 mg nightly. 9. Nitroglycerin p.r.n. 10. Entresto 24.5/25.5 b.i.d. 11. Chantix. ALLERGIES: NONE. SOCIAL HISTORY: Continues to smoke several cigarettes per day. He did smoke up to 2 packs per day prior to bypass surgery. He worked in the [employer] in the past, but has been disabled since his stroke. FAMILY HISTORY: Negative for coronary artery disease. PHYSICAL: VITAL SIGNS: Blood pressure 151/80 and pulse 66. HEENT: PERRL. CHEST: Clear. CARDIAC: S1 and S2 are normal without any S3, S4, or murmurs. ABDOMEN: Obese. Normal bowel sounds. EXTREMITIES: No clubbing, cyanosis, or edema. NEUROLOGIC: He does have slurred speech with mild left hand weakness. IMPRESSION: 1. Cerebrovascular accident. 2. Totally occluded right carotid artery and severely narrowed left carotid artery for left carotid endarterectomy in the future. This has been attempted to be scheduled and performed since October of last year. 3. Coronary artery disease, status post coronary artery bypass graft x5 with all grafts occluded in 01/2017. 4. The patient is labeled as having history of atrial fibrillation; however, I have never seen that. 5. Hypertension. 6. Diabetes. 7. Hypercholesterolemia. 8. Smoker. 9. Obesity. PLAN: Mr. Stubbs's ICD will be interrogated. He does state that it has been beeping once a week for the last several weeks. Also, all of his old EKGs will be requested for review to see if he has had atrial fibrillation in the past, I have not been able to find that any in my records. He has had some improvement in his left ventricular function with Entresto. I would continue with the aspirin and Plavix. Job ID: [id number] [facility]
--- NOTE | 2020-09-08 20:30 | CON ---
DATE OF CONSULTATION: HISTORY: This is a 65-year-old gentleman with a known history of coronary artery disease, having previously undergone coronary bypass grafting and subsequently had occlusion of all 5 grafts. He also has a history of severe left ventricular dysfunction of 10% to 15% EF, however, most recent echo suggest 30% to 35% on medical management. He presented to the hospital on 09/07 after having trouble getting up out of his chair perhaps due to left leg weakness. He previously had a stroke on the right hemisphere with some speech difficulties that had persisted as well as some left hand weakness. He was admitted to the hospital where a cardiac echo showed improved LV function as noted above. He had a CT scan of the head showing encephalomalacia in the right middle cerebral artery distribution and this was in conjunction with a known right internal carotid artery stenosis. He had known critical left internal carotid artery stenosis a year ago, but due to his poor EF, surgery was postponed and he was scheduled for a repeat cardiac echo this summer to see if he would become a surgical candidate. PAST MEDICAL HISTORY: Otherwise, significant for diabetes mellitus, dyslipidemia. He has longstanding smoking history, but has stopped. He does not drink. Additional past medical history includes the previously noted stroke as well as a history of atrial fibrillation. PAST SURGICAL HISTORY: Includes pacemaker, coronary artery bypass grafting in 2001, appendectomy, previous back surgery, and a defibrillator placement. CURRENT MEDICATIONS: Include; 1. Plavix 75 mg a day. 2. Aspirin 81 mg a day. 3. Coreg 12.5 b.i.d. 4. Clonidine p.r.n. 5. Lasix 20 mg a day. 6. Metformin 850 b.i.d. 7. Atorvastatin 20. 8. Venlafaxine 37.5 daily. 9. Albuterol inhaler as needed b.i.d. 10. Mirtazapine 15 at bedtime. 11. Melatonin 10 at bedtime. 12. Entresto 24.5/25.5. PHYSICAL EXAMINATION: GENERAL: Alert, cooperative fellow, 6 feet, 242 pounds. NECK EXAMINATION: Reveals no carotid bruits. Unshaven. LUNGS: No wheezing or rhonchi today. CARDIAC: Regular rate and rhythm. No murmurs. Defibrillator in left upper chest wall. ABDOMEN: Obese, soft, nontender. EXTREMITIES: Palpable femoral and popliteal pulses and no pedal pulses. No peripheral edema. Left hand, some restriction in motion of his fingers and he does not have a good accordion maker with some [id number] incoordination. He is able to walk around the room with his left leg without much difficulty and his right arm strength is normal. His speech is somewhat slurred, but understandable. ASSESSMENT AND PLAN: At this time, the patient maybe a candidate for based on his CT findings last fall and we will plan on bringing him back to the hospital next week as he does not wish to stay until next week when he has been on Plavix for 5 days, but I think this is perfectly safe. Job ID: [id number]
[2020-09-08] MEDS: Carvedilol 6.25 MG TAB PO SCH (21:07)
[2020-09-08] MEDS: Mirtazapine 15 MG TAB PO SCH (21:07)
[2020-09-08] MEDS: Atorvastatin Calcium 40 MG TAB PO SCH (21:07)
[2020-09-08] MEDS: Sacubitril 49 MG/Valsartan 51 MG TABLET PO SCH (21:11)
[2020-09-09 05:04] LABS: #Basophils 0.1 thou/uL (0.0-0.2); #Eosinphils 0.3 thou/uL (0.0-0.7); #Lymphocytes 1.1 thou/uL (1.20-3.40); #Neutrophils 7.2 thou/uL (1.40-6.50); %Basophils 0.8 % (0.0-1.0); %Eosinophils 3.5 % (0.0-10.0); %Monocytes 9.9 % (0.0-10.0); %Neutrophils 74.8 % (42.0-75.0); Hemoglobin 15.9 g/dL (14.0-18.0); Mean Corpuscular Hemoglobin 31.5 pg (27.0-31.0); Mean Corpuscular Volume 90.2 fL (78.0-98.0); Mean Platelet Volume 7.5 fL (7.4-10.4); Platelet Count 171 thou/uL (130-400); RBC Distribution Width 12.9 % (11.5-14.5); Red Blood Cell (RBC) Count 5.05 mill/uL (4.70-6.10); White Blood Cell (WBC) Count 9.6 thou/uL (4.8-10.8)
[2020-09-09 05:23] LABS: Anion Gap 11 mmol/L (10-20); BUN (Urea Nitrogen) 22 mg/dL (8.4-25.7); Calc. Creatinine Clearance 113 mL/min (70-130); Calcium 8.7 mg/dL (7.8-10.44); Carbon Dioxide 22 mmol/L (23-31); Chloride 107 mmol/L (98-107); Estimated GFR-MDRD 75; Glucose 132 mg/dL (80-115); Potassium 4.2 mmol/L (3.5-5.1); Sodium 136 mmol/L (136-145)
[2020-09-09] MEDS: Albuterol Sulfate 2.5 mg/3 ml Neb NEB SCH ×2 (05:32→18:44)
[2020-09-09] MEDS ORDERED: Magnesium 2 GM/50 ML 2 GM in Premix Bag 1 BAG IVPB SCH (07:00)
[2020-09-09] MEDS: Acetaminophen 325 MG TAB PO PRN (09:46)
[2020-09-09] MEDS: metFORMIN 850 MG TAB PO SCH ×2 (09:46→18:16)
[2020-09-09] MEDS: Famotidine 20 MG TAB PO SCH ×2 (09:47→22:33)
[2020-09-09] MEDS: Varenicline Tartrate 0.5 MG TAB PO SCH ×2 (09:48→22:32)
[2020-09-09] MEDS: Carvedilol 6.25 MG TAB PO SCH ×2 (09:48→22:32)
[2020-09-09] MEDS: Enoxaparin Sodium 40 MG/0.4 ML SYRINGE SC SCH (09:48)
[2020-09-09] MEDS: Sacubitril 49 MG/Valsartan 51 MG TABLET PO SCH (09:48)
[2020-09-09] MEDS: Clopidogrel Bisulfate 75 MG TAB PO SCH (09:49)
[2020-09-09] MEDS: Aspirin 81 mg Enteric Coated Tablet PO SCH (09:49)
[2020-09-09] MEDS: Venlafaxine XR 37.5 MG CAP PO SCH (09:49)
[2020-09-09] MEDS: Insulin Regular 300 UNITS/3 ML VIAL SC PRN (12:45)
--- NOTE | 2020-09-09 12:48 | CT ---
Exam: Head CT without contrast HISTORY: Follow-up CVA. COMPARISON: 09/07/2020 FINDINGS: Hemorrhage: Interval development of small foci of right parafalcine subdural hematomas measuring 0.9 and 0.6 cm. No evidence of intraparenchymal hemorrhage. Brain parenchyma: Stable encephalomalacia and gliosis involving the cerebrum. Stable chronic small ve ssel ischemic changes of the white matter. Stable remote lacunar infarcts involving the left deep dietz matter structures. Ventricular system: Stable configuration Calvarium: Intact. Sinuses and mastoid air cells: Opacification the right maxillary sinus and left sphenoid sinus. IMPRESSION: Interval development of small foci of extra-axial hematoma, along the falx (likely subdural). Results study conveyed via CREAT to Dr. Agarwal 09/09/2020 12:47 PM Code CR Transcribed Date/Time: 09/09/2020 12:50 PM
--- NOTE | 2020-09-09 13:22 | PDOC.NEUPN ---
- Subjective Encounter Date: 09/06/20 Subjective: Patient feels better today and wants to go home. - Objective Vital Signs & Weight: Vital Signs (12 hours) Temp Pulse Resp BP BP Pulse Ox 09/09/20 12:03 97.9 F 60 18 95/52 L 95 09/09/20 10:52 67 16 97 09/09/20 09:48 147/74 H 09/09/20 07:37 97.0 F L 64 20 92/62 98 09/09/20 05:33 72 16 09/09/20 05:32 72 16 09/09/20 04:43 97.5 F L 64 22 H 102/61 93 L Weight Weight 236 lb I&O: 09/08/20 09/09/20 09/10/20 06:59 06:59 06:59 Intake Total 820 240 Balance 820 240 Result Diagrams: 09/09/20 04:38 09/09/20 04:38 Additional Labs: Accuchecks 09/09/20 09/09/20 09/08/20 10:44 06:22 20:30 POC Glucose 153 H 147 H 133 H 09/08/20 17:10 POC Glucose 152 H Radiology Reviewed by me: Yes EKG Reviewed by me: Yes ROS - Review of Systems Constitutional: denies: fever, chills, sweats, weakness, malaise, other Eyes: denies: pain, vision change, conjunctivae inflammation, eyelid inflammation, redness, other ENT: denies: ear pain, ear discharge, nose pain, nose discharge, nose congestion, mouth pain, mouth swelling, throat pain, throat swelling, other Genitourinary: denies: dysuria, frequency, incontinence, hematuria, retention, other Musculoskeletal: denies: neck pain, shoulder pain, arm pain, back pain, hand pain, leg pain, foot pain, other Skin: denies: rash, lesions, seema, bruising, other Neurological: reports: weakness, numbness, change in speech All Systems: All other systems reviewed; all pertinent +/- noted in HPI/Subj - Medication Medications: Active Medications Generic Name Dose Route Start Last Admin Trade Name Freq PRN Reason Stop Dose Admin Acetaminophen 650 mg 09/07/20 04:34 09/09/20 09:46 Acetaminophen 325 Mg Tab PO 650 mg Q4H PRN Administration Headache/Fever/Mild Pain (1-3) Albuterol Sulfate 2.5 mg 09/08/20 18:30 09/09/20 05:32 Albuterol Sulfate 2.5 Mg/3 Ml Neb NEB 2.5 mg BID-RT VIRI Administration Albuterol/Ipratropium 3 ml 09/07/20 07:00 09/09/20 10:52 Ipratropium/Albuterol Sulfate 3 Ml Neb NEB 3 ml [id number] VIRI Administration Aspirin 81 mg 09/07/20 09:00 09/09/20 09:49 Aspirin 81 Mg Enteric Coated Tablet PO 81 mg DAILY VIRI Administration Atorvastatin Calcium 40 mg 09/07/20 21:00 09/08/20 21:07 Atorvastatin Calcium 40 Mg Tab PO 40 mg HS VIRI Administration Carvedilol 12.5 mg 09/08/20 21:00 09/09/20 09:48 Carvedilol 6.25 Mg Tab PO 12.5 mg BID VIRI Administration Clopidogrel Bisulfate 75 mg 09/07/20 09:00 09/09/20 09:49 Clopidogrel Bisulfate 75 Mg Tab PO 75 mg DAILY VIRI Administration Diphenhydramine HCl 25 mg 09/08/20 18:03 09/08/20 18:20 Diphenhydramine 25 Mg Cap PO 25 mg Q6H PRN Administration Itching & Insomnia Enoxaparin Sodium 40 mg 09/07/20 09:00 09/09/20 09:48 Enoxaparin Sodium 40 Mg/0.4 Ml Syringe SC 40 mg 0900 VIRI Administration Famotidine 20 mg 09/07/20 09:00 09/09/20 09:47 Famotidine 20 Mg Tab PO Not Given BID VIRI Insulin Human Regular 0 units 09/07/20 04:35 09/09/20 12:45 Insulin Regular 300 Units/3 Ml Vial SC 2 unit .MODERATE SLIDING SC PRN Administration Moderate Correctional Scale Metformin HCl 850 mg 09/08/20 17:00 09/09/20 09:46 Metformin 850 Mg Tab PO 850 mg BID-WM VIRI Administration Mirtazapine 15 mg 09/08/20 21:00 09/08/20 21:07 Mirtazapine 15 Mg Tab PO 15 mg HS VIRI Administration Mometasone Furoate 1 puff 09/07/20 18:30 09/08/20 19:11 Mometasone Furoate 30 Puff 220 Mcg INH 1 puff 1830 VIRI Administration Sacubitril/Valsartan 1 tab 09/08/20 21:00 09/09/20 09:48 Sacubitril 49 Mg/Valsartan 51 Mg Tablet PO 1 tab BID VIRI Administration Sodium Chloride 10 ml 09/07/20 04:35 09/08/20 10:25 Flush - Normal Saline 10 Ml Syringe IVF 10 ml PRN PRN Administration Saline Flush Sodium Chloride 0 ml 09/08/20 06:30 09/08/20 10:24 Sodium Chloride 0.65% Nasal 44 Ml Bot EA NARE 1 spr PRN PRN Administration Nasal Dryness Varenicline 1 mg 09/07/20 09:00 09/09/20 09:48 Varenicline Tartrate 0.5 Mg Tab PO 1 mg BID VIRI Administration Venlafaxine HCl 37.5 mg 09/09/20 09:00 09/09/20 09:49 Venlafaxine Xr 37.5 Mg Cap PO 37.5 mg DAILY VIRI Administration - Exam General Appearance: awake alert Eye: PERRL ENT: normocephalic atraumatic Neck: supple Respiratory: CTAB Cardiovascular: RRR Gastrointestinal: soft Extremities: no cyanosis Skin: normal turgor Neurological: no new deficit, speech deficit Musculoskeletal: normal tone, no muscle wasting PSYCH: normal affect, normal behavior, A&O x 3 Results - Labs Result Diagrams: 09/09/20 04:38 09/09/20 04:38 Lab results: WBC 9.6 thou/uL (4.8-10.8) 09/09/20 04:38 Hgb 15.9 g/dL (14.0-18.0) 09/09/20 04:38 Hct 45.5 % (42.0-52.0) 09/09/20 04:38 MCV 90.2 fL (78.0-98.0) 09/09/20 04:38 Plt Count 171 thou/uL (130-400) 09/09/20 04:38 Neutrophils % 74.8 % (42.0-75.0) 09/09/20 04:38 Sodium 136 mmol/L (136-145) 09/09/20 04:38 Potassium 4.2 mmol/L (3.5-5.1) 09/09/20 04:38 Chloride 107 mmol/L (98-107) 09/09/20 04:38 Carbon Dioxide 22 mmol/L (23-31) L 09/09/20 04:38 BUN 22 mg/dL (8.4-25.7) 09/09/20 04:38 Creatinine 1.00 mg/dL (0.7-1.3) 09/09/20 04:38 Glucose 132 mg/dL (80-115) H 09/09/20 04:38 Calcium 8.7 mg/dL (7.8-10.44) 09/09/20 04:38 Total Bilirubin 0.5 mg/dL (0.2-1.2) 09/07/20 00:44 AST 16 U/L (5-34) 09/07/20 00:44 ALT 13 U/L (8-55) 09/07/20 00:44 Alkaline Phosphatase 78 U/L (40-110) 09/07/20 00:44 Troponin I 0.035 ng/mL (< 0.028) H 09/07/20 06:38 Serum Total Protein 6.6 g/dL (5.8-8.1) 09/07/20 00:44 Albumin 3.9 g/dL (3.4-4.8) 09/07/20 00:44 PN A/P (1) Acute CVA (cerebrovascular accident) Code(s): I63.9 - CEREBRAL INFARCTION, UNSPECIFIED Status: Acute (2) Acute on chronic systolic ACC/AHA stage C congestive heart failure Code(s): I50.23 - ACUTE ON CHRONIC SYSTOLIC (CONGESTIVE) HEART FAILURE Status: Acute (3) COPD (chronic obstructive pulmonary disease) Status: Acute (4) STEMI (ST elevation myocardial infarction) Status: Acute (5) CAD (coronary artery disease) Code(s): I25.10 - ATHSCL HEART DISEASE OF [place] CORONARY ARTERY W/O ANG PCTRS Status: Chronic Qualifiers: Coronary Disease-Associated Artery/Lesion type: bypass graft [place] vs. transplanted heart: [place] heart Associated angina: without angina Qualified Code(s): I25.810 - Atherosclerosis of coronary artery bypass graft(s) without angina pectoris (6) H/O: CVA (cerebrovascular accident) Code(s): Z86.73 - PRSNL HX OF TIA (TIA), AND CEREB INFRC W/O RESID DEFICITS Status: Chronic (7) HLD (hyperlipidemia) Code(s): E78.5 - HYPERLIPIDEMIA, UNSPECIFIED Status: Chronic Qualifiers: Hyperlipidemia type: unspecified Qualified Code(s): E78.5 - Hyperlipidemia, unspecified (8) HTN (hypertension) Code(s): I10 - ESSENTIAL (PRIMARY) HYPERTENSION Status: Chronic Qualifiers: Hypertension type: essential hypertension Qualified Code(s): I10 - Essential (primary) hypertension (9) Tobacco dependence Code(s): F17.200 - NICOTINE DEPENDENCE, UNSPECIFIED, UNCOMPLICATED Status: Chronic (10) Hypertensive urgency Code(s): I16.0 - HYPERTENSIVE URGENCY Status: Resolved - Plan Daily Plan: PT/OT, speech therapy, DVT proph w/SCDs 65-year-old male with history significant for prior stroke in the right MCA territory, hypertension ,hyperlipidemia , coronary artery disease, atrial fibrillation, carotid stenosis and scheduled for surgery carotid endarterectomy on September 13 presented with acute worsening of speechdysarthria and left leg weakness. Concern about new stroke. MRI of the brain to evaluate for acute intracranial process is compatible with pacemaker otherwise repeat head CT 48 hours after symptom onset. Head CT reviewed which showed interval development of small subdural hematoma but no new stroke. 2D echo reviewed and results noted. Moderate enlargement of the left ventricle with left ventricular ejection fraction 30 to 35%. Telemetry. Has history of atrial fibrillation and not on anticoagulation. Cardiology on board regarding management. Carotid Dopplers completed and results reviewed. Complete occlusion of the right internal carotid artery and critical stenosis of the left internal carotid artery. Dr. Valadez input appreciated. Neuro checks every 4 hours. Permissive control of blood pressure at this time. Strict control of blood glucose. Continue Plavix and high intensity statin for secondary stroke prevention. Continue home medications. PT/OT/speech Continue medical management per primary team and cardiology. Plan discussed in detail with the patient , MD attending Dr. Agarwal and also during MDR rounds.
--- NOTE | 2020-09-09 14:06 | PDOC.HOSPP ---
- Subjective Encounter Date: 09/09/20 Encounter Time: 13:50 Subjective: f/u for acute CVA with apparent falcine subdural hematoma on repeat CT imaging today. Speech is worse today per pt and still has L hemiparesis. Receiving dual antiplatelet therapy with ASA/Plavix. - Objective Vital Signs & Weight: Vital Signs (12 hours) Temp Pulse Resp BP BP Pulse Ox 09/09/20 12:03 97.9 F 60 18 95/52 L 95 09/09/20 10:52 67 16 97 09/09/20 09:48 147/74 H 09/09/20 07:37 97.0 F L 64 20 92/62 98 09/09/20 05:33 72 16 09/09/20 05:32 72 16 09/09/20 04:43 97.5 F L 64 22 H 102/61 93 L Weight Weight 236 lb I&O: 09/08/20 09/09/20 09/10/20 06:59 06:59 06:59 Intake Total 820 240 Balance 820 240 Result Diagrams: 09/09/20 04:38 09/09/20 04:38 Additional Labs: Accuchecks 09/09/20 09/09/20 09/08/20 10:44 06:22 20:30 POC Glucose 153 H 147 H 133 H 09/08/20 17:10 POC Glucose 152 H Radiology Reviewed by me: Yes (CT brain - parafalcine subdural) EKG Reviewed by me: Yes (Tele - SR) Hospitalist ROS - Medication Medications: Active Medications Generic Name Dose Route Start Last Admin Trade Name Freq PRN Reason Stop Dose Admin Acetaminophen 650 mg 09/07/20 04:34 09/09/20 09:46 Acetaminophen 325 Mg Tab PO 650 mg Q4H PRN Administration Headache/Fever/Mild Pain (1-3) Albuterol Sulfate 2.5 mg 09/08/20 18:30 09/09/20 05:32 Albuterol Sulfate 2.5 Mg/3 Ml Neb NEB 2.5 mg BID-RT VIRI Administration Albuterol/Ipratropium 3 ml 09/07/20 07:00 09/09/20 10:52 Ipratropium/Albuterol Sulfate 3 Ml Neb NEB 3 ml [id number] VIRI Administration Aspirin 81 mg 09/07/20 09:00 09/09/20 09:49 Aspirin 81 Mg Enteric Coated Tablet PO 81 mg DAILY VIRI Administration Atorvastatin Calcium 40 mg 09/07/20 21:00 09/08/20 21:07 Atorvastatin Calcium 40 Mg Tab PO 40 mg HS VIRI Administration Carvedilol 12.5 mg 09/08/20 21:00 09/09/20 09:48 Carvedilol 6.25 Mg Tab PO 12.5 mg BID VIRI Administration Clopidogrel Bisulfate 75 mg 09/07/20 09:00 09/09/20 09:49 Clopidogrel Bisulfate 75 Mg Tab PO 75 mg DAILY VIRI Administration Diphenhydramine HCl 25 mg 09/08/20 18:03 09/08/20 18:20 Diphenhydramine 25 Mg Cap PO 25 mg Q6H PRN Administration Itching & Insomnia Enoxaparin Sodium 40 mg 09/07/20 09:00 09/09/20 09:48 Enoxaparin Sodium 40 Mg/0.4 Ml Syringe SC 40 mg 0900 VIRI Administration Famotidine 20 mg 09/07/20 09:00 09/09/20 09:47 Famotidine 20 Mg Tab PO Not Given BID [facility] Insulin Human Regular 0 units 09/07/20 04:35 09/09/20 12:45 Insulin Regular 300 Units/3 Ml Vial SC 2 unit .MODERATE SLIDING SC PRN Administration Moderate Correctional Scale Metformin HCl 850 mg 09/08/20 17:00 09/09/20 09:46 Metformin 850 Mg Tab PO 850 mg BID-WM VIRI Administration Mirtazapine 15 mg 09/08/20 21:00 09/08/20 21:07 Mirtazapine 15 Mg Tab PO 15 mg HS VIRI Administration Mometasone Furoate 1 puff 09/07/20 18:30 09/08/20 19:11 Mometasone Furoate 30 Puff 220 Mcg INH 1 puff 1830 VIRI Administration Sacubitril/Valsartan 1 tab 09/08/20 21:00 09/09/20 09:48 Sacubitril 49 Mg/Valsartan 51 Mg Tablet PO 1 tab BID VIRI Administration Sodium Chloride 10 ml 09/07/20 04:35 09/08/20 10:25 Flush - Normal Saline 10 Ml Syringe IVF 10 ml PRN PRN Administration Saline Flush Sodium Chloride 0 ml 09/08/20 06:30 09/08/20 10:24 Sodium Chloride 0.65% Nasal 44 Ml Bot EA NARE 1 spr PRN PRN Administration Nasal Dryness Varenicline 1 mg 09/07/20 09:00 09/09/20 09:48 Varenicline Tartrate 0.5 Mg Tab PO 1 mg BID VIRI Administration Venlafaxine HCl 37.5 mg 09/09/20 09:00 09/09/20 09:49 Venlafaxine Xr 37.5 Mg Cap PO 37.5 mg DAILY VIRI Administration - Exam General Appearance: NAD, awake alert Eye: PERRL, anicteric sclera ENT: normocephalic atraumatic, no oropharyngeal lesions Neck: supple, symmetric, no JVD, no thyromegaly, no lymphadenopathy Heart: RRR, no gallops, no rubs, normal peripheral pulses Heart - other findings: S1, S2 Respiratory: CTAB, no wheezes, no rales, no ronchi, normal chest expansion Gastrointestinal: soft, non-tender, non-distended, normal bowel sounds, no palpable masses Extremities: no cyanosis, no clubbing, no edema Skin: normal turgor Neurological: facial droop Neurological - other findings: L hemiparesis, expressive aphasia Musculoskeletal: normal tone, generalized weakness Psychiatric: A&O x 3, flat affect Hosp A/P (1) Acute CVA (cerebrovascular accident) Code(s): I63.9 - CEREBRAL INFARCTION, UNSPECIFIED Status: Acute Plan: R MCA territorial CVA, continue stroke protocol, ASA/Plavix (2) Subdural hematoma Code(s): S06.5X9A - TRAUM SUBDR HEM W LOC OF UNSP DURATION, INIT Status: Acute Plan: Parafalcine subdural hematoma, monitor for progression given need for dual antiplatelet therapy, repeat CT brain in am (3) Carotid stenosis Code(s): I65.29 - OCCLUSION AND STENOSIS OF UNSPECIFIED CAROTID ARTERY Status: Chronic Qualifiers: Laterality: bilateral Qualified Code(s): I65.23 - Occlusion and stenosis of bilateral carotid arteries Plan: Plan for L CEA after 5 days of Plavix (4) DM type 2 (diabetes mellitus, type 2) Status: Chronic Qualifiers: Diabetes mellitus [employer] customer [employer] insulin use: without correction use Diabetes mellitus complication status: with unspecified complications (5) HTN (hypertension) Code(s): I10 - ESSENTIAL (PRIMARY) HYPERTENSION Status: Chronic Qualifiers: Hypertension type: essential hypertension Qualified Code(s): I10 - Essential (primary) hypertension Plan: Currently hypotensive, hold Entresto (6) Tobacco dependence Code(s): F17.200 - NICOTINE DEPENDENCE, UNSPECIFIED, UNCOMPLICATED Status: Chronic - Plan PT/OT, social contact worker, speech therapy, out of bed/ambulate, DVT proph w/SCDs A/P: Acute/chronic R MCA territorial CVA - continue ASA/Plavix/Lipitor, Stroke protocol, 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 resumption of Entresto CAD - med mgmt, no ACS HLD - continue Lipitor CKD II - avoid nephrotoxic meds and limit contrast exposure, serial creatinine Repeat CT brain in am, may be able to d/c home and return for CEA early next week if no progression of hematoma
[2020-09-09] MEDS: Mometasone Furoate 30 PUFF 220 MCG INH SCH (18:48)
[2020-09-09] MEDS: Mirtazapine 15 MG TAB PO SCH (22:33)
[2020-09-09] MEDS: Amiodarone 200 MG TAB PO SCH (22:33)
[2020-09-09] MEDS: Atorvastatin Calcium 40 MG TAB PO SCH (22:33)
[2020-09-10 04:49] LABS: #Eosinphils 0.3 thou/uL (0.0-0.7); #Lymphocytes 1.1 thou/uL (1.20-3.40); #Monocytes 0.5 thou/uL (0.11-0.59); #Neutrophils 6.9 thou/uL (1.40-6.50); %Basophils 0.3 % (0.0-1.0); %Eosinophils 3.2 % (0.0-10.0); %Monocytes 6.1 % (0.0-10.0); %Neutrophils 78.5 % (42.0-75.0); Hemoglobin 16.1 g/dL (14.0-18.0); Mean Corpuscular HGB CONC 34.6 g/dL (32.0-36.0); Mean Corpuscular Hemoglobin 31.3 pg (27.0-31.0); Mean Corpuscular Volume 90.6 fL (78.0-98.0); Mean Platelet Volume 7.6 fL (7.4-10.4); Platelet Count 181 thou/uL (130-400); RBC Distribution Width 13.1 % (11.5-14.5); Red Blood Cell (RBC) Count 5.13 mill/uL (4.70-6.10); White Blood Cell (WBC) Count 8.8 thou/uL (4.8-10.8)
[2020-09-10 05:37] LABS: Anion Gap 13 mmol/L (10-20); BUN (Urea Nitrogen) 23 mg/dL (8.4-25.7); Calc. Creatinine Clearance 102 mL/min (70-130); Calcium 8.9 mg/dL (7.8-10.44); Carbon Dioxide 18 mmol/L (23-31); Chloride 108 mmol/L (98-107); Estimated GFR-MDRD 67; Glucose 140 mg/dL (80-115); Potassium 4.3 mmol/L (3.5-5.1); Sodium 135 mmol/L (136-145)
[2020-09-10] MEDS: Albuterol Sulfate 2.5 mg/3 ml Neb NEB SCH (06:48)
[2020-09-10 07:33] VITALS: TEMP 98.2
--- NOTE | 2020-09-10 10:38 | CT ---
PRELIMINARY REPORT/[facility]/EMERGENCY AFTER HOURS PROCEDURE EXAM: CT Head Without Intravenous Contrast. CLINICAL HISTORY: F/U CVA, parafalcine subdural TECHNIQUE: Axial computed tomography images of the head/brain without intravenous contrast. COMPARISON: September 09, 2020 FINDINGS: BRAIN: No acute intraparenchymal hemorrhage. No mass lesion. No CT evidence for acute territorial infarct. N o midline shift or extra-axial collection. Some slight hyperdensity along the anterior falx as noted on previous study presumably a tiny subdural hematoma if there has been no trauma history. It is unchanged. VENTRICLES: No hydrocephalus. ORBITS: The orbits are unremarkable. SINUSES AND MASTOIDS: The paranasal sinuses and mastoid air cells are stable. Near complete opacification of the right max illary sinus is again noted.. SOFT TISSUES: No significant facial or scalp soft tissue swelling evident. No radiopaque foreign body is seen. BONES: No acute skull fracture. IMPRESSION: Stable exam ELECTRONICALLY SIGNED BY: Antonio Zhou MD Sep 10, 2020 4:00:14 AM CDT This report is intended for review by the ordering physician only, in accordance of law. If you recei ve this report in error, please call [facility] at [phone]. FINAL REPORT Final report by Dr. Perdomo Emergency after-hours study CT BRAIN NONCONTRAST: DATE: 09/10/2020 3:23 AM HISTORY: 65-year-old male follow-up subdural hematoma. COMPARISON: 09/09/2020 and 09/07/2020. FINDINGS: Two tiny foci of hyperdensities at the anterior interhemispheric falx, noted on 09/09/2020, but not pr esent on 09/07/2020, appears to represent tiny subdural hematomas. They have not changed since 09/09/2020. Agree with preliminary report by [facility]. IMPRESSION: 1. Two tiny foci of subdural hematomas along anterior interhemispheric falx, unchanged since 09/09/20 20, and new since 09/07/2020. 2. Numerous other chronic changes, including multiple old infarctions, including large right MCA ter ritory old infarction, are again noted. Transcribed Date/Time: 09/10/2020 11:41 AM
[2020-09-10] MEDS: Varenicline Tartrate 0.5 MG TAB PO SCH (10:50)
[2020-09-10] MEDS: metFORMIN 850 MG TAB PO SCH ×2 (10:51→16:46)
[2020-09-10] MEDS: Aspirin 81 mg Enteric Coated Tablet PO SCH (10:51)
[2020-09-10] MEDS: Venlafaxine XR 37.5 MG CAP PO SCH (10:51)
[2020-09-10] MEDS: Amiodarone 200 MG TAB PO SCH (10:51)
[2020-09-10] MEDS: Carvedilol 6.25 MG TAB PO SCH (10:51)
[2020-09-10] MEDS: Clopidogrel Bisulfate 75 MG TAB PO SCH (10:52)
[2020-09-10] MEDS: Famotidine 20 MG TAB PO SCH (10:55)
[2020-09-10 11:18] VITALS: BP 116/73
[2020-09-10] MEDS: Acetaminophen 325 MG TAB PO PRN (14:32)
[2020-09-10] MEDS ORDERED: Fioricet 325/50/40 mg Tablet PO PRN (16:24)
[2020-09-10] MEDS ORDERED: Fioricet 325/50/40 mg Tablet PO SCH (16:30)
--- NOTE | 2020-09-12 14:32 | DIS ---
DATE OF ADMISSION: 09/08/2020 DATE OF DISCHARGE: 09/10/2020 DISCHARGE DIAGNOSES: 1. Acute on chronic right middle cerebral artery territorial cerebrovascular accident. 2. Subdural hematoma of the parafalcine. 3. Carotid artery stenosis. 4. Diabetes type 2. 5. Ischemic cardiomyopathy. 6. Coronary artery disease. 7. Dyslipidemia. 8. Chronic kidney disease, stage 2. 9. Paroxysmal atrial fibrillation, status post pacemaker interrogation, showed about 20 hours of atrial fibrillation per Cardiology. 10. Nonsustained ventricular tachycardia. The patient was started on amiodarone. CONSULTATIONS: 1. Cardiology, Dr. Mando Valadez. 2. Neurology Dr. Abdul. 3. Cardiovascular Surgery, Dr. Riley Dodson. PROCEDURES PERFORMED: None. LABORATORY DATA: WBC 8.8, hemoglobin 16.1, hematocrit 46.5, and platelets 181. Chemistry; sodium 135, potassium 4.3, anion gap 18, BUN 23, creatinine 1.1. LDL 105. AST, ALT within normal limits. IMAGING STUDIES: CT of the brain was done on 09/07/2020, shows large area of right MCA territory encephalomalacia, consistent with infarct, [place] when compared to prior. Some of the interval worsening appeared to be old, however, the penumbral regions acute on chronic infarct is not excluded. Diffuse cerebral atrophy. Repeated CT done on 09/09/2020, interval development of small foci of the extra-axial hematoma along the falx, likely subdural hematoma. Brain CT done on 09/10/2020, two tiny subdural hematomas along anterior interhemispheric falx, unchanged since 09/09/2020, and new since 09/07/2020. HOSPITAL COURSE: The patient is an unfortunate 65-year-old gentleman, who has a significant past medical history of CAD with status post CABG x5, carotid stenosis, paroxysmal atrial fibrillation, diabetes type 2, hypertension, dyslipidemia, COPD, who was presented to the ED with 3 to 4 days of history of slurred speech, associated with left lower extremity weakness. The patient was scheduled to have his carotid endarterectomy done on September 13. However, because of his symptom, he came to the ED for further evaluation. Initial CT was done in the ED, concern with worsening of his right MCA territorial stroke. The patient was out of the tPA window. For that reason, he was admitted to Hospitalist Service for further stroke workup. Because of his AICD device, unable to obtain MRI. Repeat serial CT of the head was done. Results are noted above. Neurology was consulted as well as Cardiology and Cardiovascular. The patient was seen by Dr. Dodson. Recommended to continue with dual-antiplatelet therapy, and plan for outpatient carotid endarterectomy, which is scheduled on . The patient was also seen by his primary cool roofing installer, Dr. Valadez. His AICD device was interrogated, apparently he has been in and out of atrial fibrillation for the last 20 hours. He also had intermittent nonsustained ventricular tachycardia with the longest was 10 beats of ventricular tachycardia. He was started on amiodarone orally [address] Valadez. He has signed off. Recommended to start on Eliquis or anticoagulants after his carotid endarterectomy. Additionally, we have increased his statin therapy from 20 mg to 40 mg at bedtime. He will need to continue his dual-antiplatelet therapy. Belt Lacer has signed off as well as other specialists. At this time, his repeated CT scan appeared to be stable. No further symptoms noted. The patient is stable to discharge home. DISPOSITION: The patient is stable to discharge home. ACTIVITY: As tolerated. DIET: Heart healthy, low-sodium diet. FOLLOWUP CARE: The patient to follow up with Dr. Dodson early next week for evaluations of left carotid endarterectomy. The patient needs to follow up with Dr. Mando Valadez for ongoing management of his CAD and start him on Eliquis after he had his carotid endarterectomy. Follow up with PCP in 1 to 2 weeks after hospital for followup as well as outpatient neurologist. PHYSICAL EXAMINATION: VITAL SIGNS: Temperature 98.2, pulse 61, respiratory rate 16, he is saturating 93% on room air. GENERAL APPEARANCE: The patient appears to be comfortable. He is not in any acute distress. HEENT: Normocephalic, atraumatic. Mucous membranes moist. NECK: Supple. No lymphadenopathy. No JVD. CARDIOVASCULAR: Regular rate and rhythm. S1 and S2 noted. No murmur. PULMONOLOGY: Clear to auscultation bilaterally. ABDOMEN: Soft, nontender, nondistended. Positive bowel sounds. MUSCULOSKELETAL: Positive for left-sided hemiparesis and expressive aphasia. NEUROLOGIC: He also has noted a facial droop on his neurological exam, as mentioned above. PSYCHIATRIC: The patient is alert and oriented x3 with normal affect. DISCHARGE MEDICATIONS: New prescriptions; 1. Amiodarone 200 mg b.i.d. 2. Lipitor 40 mg p.o. at bedtime. Continue his usual home medication including; 1. Aspirin 81 mg p.o. daily. 2. Benadryl 25 mg p.r.n. 3. Chantix 1 mg p.o. b.i.d. 4. Lasix 20 mg p.r.n. for swelling. 5. Melatonin 10 mg p.o. at bedtime for sleep. 6. Metformin 850 mg b.i.d. 7. Mirtazapine 15 mg p.o. at bedtime. 8. Albuterol inhaler 2 puffs inhale b.i.d. 9. Venlafaxine 37.5 p.o. daily. 10. Carvedilol 12.5 mg b.i.d. 11. Entresto 24.5-25.5 mg one tablet p.o. b.i.d. 12. Nitroglycerin tablet 0.4 mg p.o. tablet p.r.n. for chest pain. 13. Plavix 75 mg p.o. daily. Thank you for allowing us to participate in this patient's care. DISCHARGE TIME SPENT: 45 minutes. Job ID: [id number]
== END 2020-09-10 17:32 | disposition home or self-care (01) | DRG 64 ==
LOC: ERS 00:27 → ERHOLD 02:01 → 2SE 14:46 → OBSVTOIN 09-08 12:23
PROVIDERS: ADMIT Internal Medicine; ATTEND Internal Medicine
PROC: 4B02XTZ Measurement of Cardiac Defibrillator, External Approach (ICD-10-PCS; principal; 2020-09-08)
DX: I63.511 Cerebral infarction due to unspecified occlusion or stenosis of right middle cerebral artery (principal); I62.00 Nontraumatic subdural hemorrhage, unspecified; I50.23 Acute on chronic systolic (congestive) heart failure; I21.4 Non-ST elevation (NSTEMI) myocardial infarction; I47.2 Ventricular tachycardia; I25.810 Atherosclerosis of coronary artery bypass graft(s) without angina pectoris; I13.0 Hypertensive heart and chronic kidney disease with heart failure and stage 1 through stage 4 chronic kidney disease, or unspecified chronic kidney disease; E11.22 Type 2 diabetes mellitus with diabetic chronic kidney disease; I25.5 Ischemic cardiomyopathy; E78.5 Hyperlipidemia, unspecified; N18.2 Chronic kidney disease, stage 2 (mild); I48.0 Paroxysmal atrial fibrillation; J44.9 Chronic obstructive pulmonary disease, unspecified; R29.701 NIHSS score 1; R47.81 Slurred speech; I16.0 Hypertensive urgency; Z20.828 Contact with and (suspected) exposure to other viral communicable diseases; E66.9 Obesity, unspecified; I65.23 Occlusion and stenosis of bilateral carotid arteries; Z95.1 Presence of aortocoronary bypass graft; Z90.49 Acquired absence of other specified parts of digestive tract; Z87.891 Personal history of nicotine dependence; Z79.84 Long term (current) use of oral hypoglycemic drugs; Z79.899 Other long term (current) drug therapy; Z68.32 Body mass index [BMI] 32.0-32.9, adult; Z95.810 Presence of automatic (implantable) cardiac defibrillator; G83.14 Monoplegia of lower limb affecting left nondominant side; E11.51 Type 2 diabetes mellitus with diabetic peripheral angiopathy without gangrene; Z86.73 Personal history of transient ischemic attack (TIA), and cerebral infarction without residual deficits; Z79.01 Long term (current) use of anticoagulants; G93.89 Other specified disorders of brain; E78.00 Pure hypercholesterolemia, unspecified
CPT/HCPCS: 36415; 36416; 70450; 71045; 80048; 80053; 80061; 83735; 84484; 85025; 87635; 93005; 93306; 93880; 94640; 96372; G0378; J1650; J1815; J2405; J3475; J7611; J7620; Q0163; U0003

== ENCOUNTER 2020-09-14 07:03 | Inpatient (IN) | payer MEDICARE ==
[2020-09-13 09:45] VITALS: BMI 32.8
[2020-09-14 08:36] LABS: Hemoglobin 15.9 g/dL (14.0-18.0); Mean Corpuscular HGB CONC 32.9 g/dL (32.0-36.0); Mean Corpuscular Hemoglobin 30.4 pg (27.0-31.0); Mean Corpuscular Volume 92.4 fL (78.0-98.0); Mean Platelet Volume 7.3 fL (7.4-10.4); Platelet Count 233 thou/uL (130-400); Red Blood Cell (RBC) Count 5.22 mill/uL (4.70-6.10); White Blood Cell (WBC) Count 6.4 thou/uL (4.8-10.8)
[2020-09-14 08:45] LABS: Anion Gap 13 mmol/L (10-20); BUN (Urea Nitrogen) 25 mg/dL (8.4-25.7); Calc. Creatinine Clearance 103 mL/min (70-130); Calcium 9.6 mg/dL (7.8-10.44); Carbon Dioxide 23 mmol/L (23-31); Chloride 107 mmol/L (98-107); Estimated GFR-MDRD 65; Glucose 132 mg/dL (80-115); Potassium 5.3 mmol/L (3.5-5.1); Sodium 138 mmol/L (136-145)
[2020-09-14] MEDS ORDERED: Heparin 5,000 UNITS/ML VIAL ONE (08:54)
[2020-09-14] MEDS ORDERED: Protamine Sulfate 50 MG/5 ML VIAL ONE (08:54)
[2020-09-14] MEDS ORDERED: Fentanyl 100 MCG/2 ML VIAL ONE (08:59)
[2020-09-14] MEDS ORDERED: Midazolam HCl 2 mg/2 ml Vial ONE (08:59)
[2020-09-14] MEDS ORDERED: Phenylephrine 10 MG/ML VIAL ONE (09:00)
[2020-09-14] MEDS ORDERED: Iopamidol-370 76% 500 ML 1 ML ONE (09:11)
[2020-09-14] MEDS ORDERED: Atropine Sulfate 0.4 mg/1 ml Vial ONE ×3 (10:01→11:16)
[2020-09-14] MEDS ORDERED: Ondansetron HCl/PF 4 MG/2 ML Vial IVP PRN (10:14)
[2020-09-14] MEDS ORDERED: SUGAMMADEX SODIUM 200 MG/2 ML VIAL ONE (10:38)
[2020-09-14] MEDS ORDERED: Furosemide 20 MG/2 ML VIAL ONE (11:02)
[2020-09-14] MEDS ORDERED: Glycopyrrolate 0.2 MG/ML 5 ML SYRINGE ONE (11:16)
[2020-09-14] MEDS ORDERED: PROPOFOL 200 MG/20 ML VIAL ONE (11:16)
[2020-09-14] MEDS ORDERED: EPHEDRINE 25 MG/5 ML SYRINGE ONE (11:16)
[2020-09-14] MEDS ORDERED: Lidocaine 1% PF 5 ML VIAL ONE (11:16)
[2020-09-14] MEDS ORDERED: Dexamethasone 20 MG/5 ML VIAL ONE (11:16)
[2020-09-14] MEDS ORDERED: Rocuronium Bromide 10 MG/ML (10ML VIAL) ONE (11:16)
[2020-09-14] MEDS ORDERED: PHENYLEPHRINE-NS 100 MCG/ML 10 ML SYRINGE ONE (11:34)
[2020-09-14] MEDS ORDERED: Norepinephrine 4 MG/4 ML VIAL ONE ×4 (11:57→13:18)
[2020-09-14] MEDS ORDERED: Furosemide 20 MG TAB PO PRN (12:22)
[2020-09-14] MEDS ORDERED: HYDROcodone/Acetaminophen 5/325 mg Tablet PO PRN (12:22)
[2020-09-14] MEDS ORDERED: Insulin Regular 300 UNITS/3 ML VIAL SC PRN (12:22)
[2020-09-14] MEDS ORDERED: Norepinephrine 8 MG/0.9% NS 250 ML IVPB PRN (12:22)
[2020-09-14] MEDS ORDERED: Fentanyl 100 MCG/2 ML VIAL SLOW IVP PRN (12:22)
[2020-09-14] MEDS ORDERED: Ondansetron PF 4 MG/2 ML Vial IVP PRN (12:22)
[2020-09-14] MEDS ORDERED: Nitroglycerin 50 MG/250 ML BOT 250 ML IVPB PRN (12:22)
--- NOTE | 2020-09-14 13:05 | CT ---
CTA HEAD WITH AND WITHOUT CONTRAST: Axial tomograms were obtained through the head without IV enhancement. This was followed by axial to mograms following angio protocol with multiplanar reconstruction and 3D post processing. INDICATION: Stroke. Left side weakness. New-onset right side weakness. FINDINGS: CT HEAD WITHOUT CONTRAST: Comparison is made to a CT head of 09/10/2020. Encephalomalacia of the right cerebral hemisphere is again noted and appears stable. Ventricles remain normal position and size. Moderately severe chron ic ischemic white matter changes are again seen. There is no evidence of hemorrhage or mass effect. No acute cortical infarct apparent. Old focal infarct in the left cerebellum is stable. Acute lacunar infarct in the deep white matter cannot be excluded given the degree of white matter is chemic change. IMPRESSION: No acute interval change. New lacunar infarct cannot be excluded. Consider MRI to assess for acute deep infarct. CTA HEAD: Prior exam and recent carotid Doppler study have described the chronic occlusion of the right interna l carotid artery. The right internal carotid artery is occluded as corresponding to the history. The intracranial portion of the left internal carotid artery is patent. There is luminal narrowing o f the cavernous left ICA which does appear to be hemodynamically significant with atherosclerotic rasheeda cification diffusely in the left cavernous ICA. The left MCA is opacified and is unremarkable. No evidence of focal stenosis or thrombus. Anterior cerebral arteries are patent. [place] is not intact. The right middle cerebral artery is o pacified. There is no evidence of thrombus or focal occlusion. Decreased M2 and M3 vessels on the r ight at the site of the old infarct. Basilar artery is patent. The posterior cerebral arteries are patent and symmetric. IMPRESSION: 1. No evidence of thrombus in the left middle cerebral artery. 2. There is atherosclerotic change with significant stenosis in the cavernous portion of the left in ternal carotid artery. 3. Occlusion of the right internal carotid artery has been previously documented. 4. [place] is intact and the right M1 segment does opacify. POS: AH
[2020-09-14] MEDS: Sodium Chloride 0.9% 1,000 ML IV SCH (14:18)
[2020-09-14] MEDS: CEFAZOLIN 2 GM in Premix Bag 1 BAG IVPB SCH (15:00)
--- NOTE | 2020-09-14 15:48 | OP ---
DATE OF PROCEDURE: 09/14/2020 PREOPERATIVE DIAGNOSES: Occluded right carotid, critical stenosis of left carotid. PROCEDURE PERFORMED: TCAR using a 10 x 40 stent. FLUOROSCOPY TIME: 4 minutes and 30 seconds. CONTRAST: 17 mL. DESCRIPTION OF PROCEDURE: After adequate anesthesia had been obtained, the patient was prepped and draped. Dr. Quintero placed a right common femoral artery sheath while I made an incision just above the clavicle transversely. This was eventually enlarged due to the depth of the carotid artery. The vagus nerve was identified and avoided. Clips were applied to a small branch off the jugular vein to allow access to the carotid artery. Following heparinization with a good ACT level, a pursestring suture was placed in the carotid artery, needle and wire placed. Contrast angiography was obtained, following which, a stiffer wire was placed into the distal carotid artery and the larger sheath transposed over this. It was then secured to the skin. After adequate ACT levels were confirmed, a clamp was applied on the carotid artery and a wire was advanced into the internal carotid artery. A 5 x 20 balloon was inflated, following which the 10 x 40 stent was advanced over the wire and deployed. The 5 x 20 balloon was then deployed in two spots and after allowing about 3 minutes, the clamp was removed. Contrast angiography showed a good result. The sheath was removed and the puncture site secured with a Prolene and protamine was given to reverse the heparin. Following irrigation, the wound was closed and the sheath from the groin removed. The patient tolerated the procedure well. Job ID: [id number]
[2020-09-14] MEDS: Fentanyl 100 MCG/2 ML VIAL SLOW IVP PRN ×2 (16:08→21:38)
[2020-09-14] MEDS: metFORMIN 500 MG TAB PO SCH (17:21)
[2020-09-14] MEDS: Albuterol 200 PUFF (6.7GM INHALER) INH SCH (19:09)
--- NOTE | 2020-09-14 20:53 | CON ---
DATE OF CONSULTATION: 09/14/2020 HISTORY OF PRESENT ILLNESS: Mr. Stubbs is 65-year-old admitted for carotid surgery. Postoperatively, he has developed right hemiplegia and dysarthria. I was consulted after he is admitted to the critical care unit. PAST MEDICAL HISTORY: 1. Remarkable for 3-vessel coronary artery disease with a coronary artery bypass grafting procedure with five vessels done in 2001. 2. History of followup catheterization showing first obtuse marginal vein graft to be occluded. The first and second obtuse marginal [place] vessels were occluded. The third obtuse marginal had an 80% stenosis. Remaining grafts were patent. 3. He has a history of stroke in 2014, left him weak on the left side with little difficulty with his speech. 4. History of admission in 2016 where he underwent cardiac catheterization showing all bypass grafts were occluded. He also had severe left ventricular dysfunction and he was not felt to be a candidate for redo bypass. Admission was complicated by nonsustained V-tach. 5. He was discharged with a LifeVest, but apparently has been noncompliant with followup. 6. History of admission in September 17 with heart failure and had a defibrillator placed at that time. 7. History of admission in 2018 with slurred speech. On that admission, he had an ejection fraction of 15% to 20%, had a totally occluded right carotid and a string sign in the left carotid. Left carotid endarterectomy was recommended then, but he did not return for followup. 8. History of diabetes. 9. History of hypertension. 10. History of lipid disorder. 11. History of back surgery. SOCIAL HISTORY: Ongoing smoker. Two pack-a-day smoker up to 2001. He is not a daily drinker. ALLERGIES: HE HAS NO DRUG ALLERGIES. MEDICATIONS: Have been reviewed. FAMILY HISTORY: Negative for lung disease in early age. REVIEW OF SYSTEMS: Cannot be obtained accurately. PHYSICAL EXAMINATION: GENERAL: his right side, he has a left lateral gaze preference. HEENT: His pupils are equal. Sclerae are anicteric. He is not moving his right side. He is dysarthric. VITAL SIGNS: Heart rate is 80, blood pressure 145/76, respiratory rates in the 20s, and oximetry is 100%. LUNGS: Clear. HEART: Regular rhythm. S1, S2 are normal. ABDOMEN: Soft and nontender. EXTREMITIES: Without clubbing, cyanosis, or edema. LABORATORY: White count 6.4, hemoglobin 15.9, and platelets 233,000. Electrolytes are unremarkable with the exception of the potassium 5.3 this morning. Glucose has been and 193 today. IMPRESSION: Cerebrovascular accident? secondary to an embolic event. He is protecting his airway at this point in time. Nebulized treatments may help him mobilize secretions while he is in bed. Follow the other physicians who are caring for him. Critical care time 35 min. Job ID: [id number] MTDD
[2020-09-14] MEDS: Atorvastatin Calcium 20 MG TAB PO SCH (21:38)
[2020-09-14] MEDS: Sacubitril 49 MG/Valsartan 51 MG TABLET PO SCH (21:38)
[2020-09-14] MEDS: Carvedilol 6.25 MG TAB PO SCH (21:38)
[2020-09-15] MEDS: CEFAZOLIN 2 GM in Premix Bag 1 BAG IVPB SCH ×2 (01:26→07:52)
[2020-09-15] MEDS: Fentanyl 100 MCG/2 ML VIAL SLOW IVP PRN ×4 (02:23→22:00)
[2020-09-15] MEDS: Albuterol 200 PUFF (6.7GM INHALER) INH SCH ×2 (07:46→18:44)
[2020-09-15] MEDS: metFORMIN 500 MG TAB PO SCH ×2 (07:53→16:13)
[2020-09-15] MEDS: Sodium Chloride 0.9% 1,000 ML IV SCH (07:54)
[2020-09-15] MEDS: Carvedilol 6.25 MG TAB PO SCH ×2 (08:29→20:04)
[2020-09-15] MEDS: Aspirin Chewable 81 MG TAB PO SCH (08:29)
[2020-09-15] MEDS: Venlafaxine XR 37.5 MG CAP PO SCH (08:30)
[2020-09-15] MEDS: Sacubitril 49 MG/Valsartan 51 MG TABLET PO SCH ×2 (08:30→20:05)
[2020-09-15] MEDS: Clopidogrel Bisulfate 75 MG TAB PO SCH (08:30)
--- NOTE | 2020-09-15 08:40 | PRG ---
DATE OF SERVICE: SUBJECTIVE: The patient had no issues overnight. He remains on low-dose norepinephrine to keep his blood pressure in the 140 to 170 range and this will be backed off on today to keep his pressure greater than 110. He remains right hemiplegic and ignoring his right side. There is no new laboratory values today. OBJECTIVE: LUNGS: On exam, otherwise, he has expiratory wheezes. NEUROLOGICAL: He is alert, answers questions appropriately. PLAN: At this time is for a swallow study so that we can hopefully begin him on oral intake and his oral medications and then he will likely require rehab admission and possible detention placement subsequently if his right-sided hemiplegia does not improve. Job ID: [id number]
[2020-09-15] MEDS: HYDROcodone/Acetaminophen 5/325 mg Tablet PO PRN ×2 (09:49→14:02)
--- NOTE | 2020-09-15 13:00 | PRG ---
DATE OF SERVICE: 09/15/2020 OBJECTIVE: VITAL SIGNS: Joseph Stubbs is afebrile, heart rate 70, blood pressure 151/61, respiratory rate is 23. LUNGS: Clear. HEART: Regular rhythm. ABDOMEN: Soft. NEUROLOGIC: He is still hemiplegic, dysarthric with left gaze preference. LABORATORY DATA: There is no new lab today. IMPRESSION: ? embolic cerebrovascular accident. He is swallowing evaluation. I suspect he will end up needing a percutaneous endoscopic gastrostomy tube to get adequate nutrition. He may be able to swallow, but it is unlikely that he will take enough nutrition to support himself metabolically. Job ID: [id number]
--- NOTE | 2020-09-15 14:57 | EEG ---
DATE OF SERVICE: 09/15/2020 ATTENDING PHYSICIAN: Amna Abdul MD This EEG was performed using 24-channel [employer]id[employer] video digital EEG machine with 24-disk electrodes. This was an extended 2 hours 7 minutes of inpatient video EEG recording. Digital analysis of the EEG was done for spike and seizure detection, which revealed no abnormalities. BACKGROUND: There is a nonsustained posterior background rhythm of 8 to 8.5 hertz. Minimal reactivity seen with eye opening and closure. HYPERVENTILATION: Not performed. PHOTIC STIMULATION: Not performed. SLEEP: Drowsiness and sleep are observed. EEG DIAGNOSES: 1. Occasional irregular theta activity seen during the recording. 2. Nonsustained posterior background rhythm. CLINICAL INTERPRETATION: This EEG is consistent with mild generalized nonspecific cerebral dysfunction. Job ID: [id number]
--- NOTE | 2020-09-15 15:38 | CON ---
NEUROLOGY CONSULTATION DATE OF CONSULTATION: 09/15/2020 REASON FOR CONSULTATION: Stroke. HISTORY OF PRESENT ILLNESS: Mr. Stubbs is a 65-year-old male admitted for carotid endarterectomy. Postoperatively, he developed a dense right hemiplegia and dysarthria. His prior history is significant for coronary artery disease, status post CABG x5, carotid stenosis, status post carotid endarterectomy on 09/13/2020, paroxysmal atrial fibrillation, diabetes mellitus, hypertension, dyslipidemia, and COPD. He has been known to the Stroke Service since he was admitted. He was recently admitted on 09/07/2020 with slurred speech and left leg weakness, and stroke workup was done during that time. He was discharged on 09/12/2020 with a diagnosis of acute on chronic right middle cerebral artery territory cerebrovascular accident and also subdural hematoma of the parafalcine His AICD device was interrogated and was also seen by his primary care advocate during that stay, Dr. Valadez. The AICD device was interrogated and it was found he was in and out of atrial fibrillation, so he was also started on amiodarone orally [address] Valadez during the last stay and it was recommended to start Eliquis after his carotid endarterectomy. The patient was also discharged on a high-intensity statin and dual antiplatelet therapy in preparation of surgery during that time. Patient denies nausea, vomiting, headache, chest pain, abdominal pain, recent exposure to covid or recent illness. REVIEW OF SYSTEMS: All systems were reciewed and were negative except pertinent positives and negatives mentioned in HPI. PAST MEDICAL HISTORY: Coronary artery disease, CABG x5, carotid stenosis, atrial fibrillation, diabetes, hypertension, hyperlipidemia, CVA, and COPD. PAST SURGICAL HISTORY: Appendectomy, CABG, status post pacemaker. FAMILY HISTORY: No pertinent family history. SOCIAL HISTORY: The patient is a former smoker. Denies alcohol or illegal drug use. PHYSICAL EXAMINATION: GENERAL APPEARANCE: Awake, alert. CVS: Regular rate and rhythm. CHEST: Clear. ABDOMEN: Soft. NECK: Supple. NEUROLOGICAL: Mental status, the patient is alert and oriented to person, place, and time. Dysarthria. He does have mild receptive aphasia. Cranial nerves 2 through 12 intact except right facial droop. and dysarthria Motor, muscle tone and bulk is decreased on the right. He has dense right hemiplegia with neglect. Moving the left upper and lower extremities spontaneously. Strength 5/5 bilaterally. Cerebellar, finger-nose testing intact on the left. Gait deferred due to patient's safety reasons. Sensory, withdraws to nailbed pressure left greater than right. LABORATORY DATA: Data reviewed. I reviewed the CT angiography on 09/14/2020 which revealed no evidence of thrombus in the middle cerebral artery. There is atherosclerotic change with significant stenosis in the cavernous portion of left internal carotid artery and occlusion of the right internal carotid artery. [place] is intact. ASSESSMENT AND PLAN: Mr. Joseph Stubbs is a 65-year-old male with history significant for coronary artery disease with status post coronary artery bypass grafting x5, carotid stenosis, status post carotid endarterectomy on 09/14, presented with diabetes mellitus, hypertension, dyslipidemia, chronic obstructive pulmonary disease, presented with acute onset right hemiplegia, dysarthria. The patient seems to have a major large vessel stroke involving the left middle cerebral artery territory. Continue aspirin and Plavix for secondary stroke prevention. Continue high-intensity statin for secondary stroke prevention. N.p.o. until cleared by Speech. Neuro checks every 2 hours. Continue home medications. Telemetry. Continue medical management per primary team. The patient needs to be on a long-term anticoagulation as recommended by Cardiology during the prior visit. Given his neurological deficits, he seems to have large vessel stroke, so we need to wait for at least 7 days before starting long-term anticoagulation. MRI of the brain not possible since AICD is not compatible, so consider repeat CT scan of the brain. PT/OT/Speech when stable. EEG to see underlying cortical irritability reviewed and was negative for seizure activity. We will continue to follow. Thank you for the consult. Job ID: [id number] [facility]
[2020-09-15] MEDS: Atorvastatin Calcium 20 MG TAB PO SCH (20:04)
[2020-09-16] MEDS: Sodium Chloride 0.9% 1,000 ML IV SCH (01:30)
[2020-09-16 04:15] LABS: Anion Gap 14 mmol/L (10-20); BUN (Urea Nitrogen) 26 mg/dL (8.4-25.7); Calc. Creatinine Clearance 107 mL/min (70-130); Calcium 9.1 mg/dL (7.8-10.44); Carbon Dioxide 20 mmol/L (23-31); Chloride 109 mmol/L (98-107); Estimated GFR-MDRD 69; Glucose 124 mg/dL (80-115); Potassium 4.1 mmol/L (3.5-5.1); Sodium 139 mmol/L (136-145)
--- NOTE | 2020-09-16 07:03 | PRG ---
DATE OF SERVICE: 09/16/2020 The patient is now postoperative day #2 following a left TCAR, complicated by perioperative stroke leaving him right hemiplegia. The hemiplegia is essentially unchanged. His speech is adequate. Vital signs are stable and neck incision has minimal swelling. The patient had a plus or minus swallow study yesterday, but seems to be doing better this morning and is able to take his medications. Plan at this time would be to affect transfer to the rehab when feasible. We will try and get his Ramirez catheter out today and probably transfer to the stroke unit pending rehab transfer. Job ID: [id number]
[2020-09-16] MEDS: Albuterol 200 PUFF (6.7GM INHALER) INH SCH ×2 (08:10→18:32)
[2020-09-16] MEDS: metFORMIN 500 MG TAB PO SCH ×2 (08:47→17:42)
[2020-09-16] MEDS: Clopidogrel Bisulfate 75 MG TAB PO SCH (08:48)
[2020-09-16] MEDS: Sacubitril 49 MG/Valsartan 51 MG TABLET PO SCH ×2 (08:48→20:53)
[2020-09-16] MEDS: Venlafaxine XR 37.5 MG CAP PO SCH (08:48)
[2020-09-16] MEDS: Carvedilol 6.25 MG TAB PO SCH ×2 (08:48→20:53)
[2020-09-16] MEDS: Aspirin Chewable 81 MG TAB PO SCH (08:48)
--- NOTE | 2020-09-16 12:28 | PDOC.NEUPN ---
- Subjective Encounter Date: 09/16/20 Subjective: Uncomfortable and short of breath today. He is somewhat confused and does not follow commands consistently. - Objective Vital Signs & Weight: Vital Signs (12 hours) Temp Pulse Resp BP Pulse Ox 09/16/20 12:08 73 32 H 09/16/20 11:51 99.2 F 60 30 H 119/65 95 09/16/20 08:30 99.3 F 62 26 H 115/60 96 09/16/20 08:11 99 09/16/20 08:05 92 32 H 99 09/16/20 07:15 98 09/16/20 07:00 97.9 F 09/16/20 05:00 98.7 F 09/16/20 00:53 100 Weight Weight 242 lb Most Recent Monitor Data Heart Rate from ECG 74 NIBP 145/112 NIBP BP-Mean 123 Respiration from ECG 27 SpO2 100 I&O: 09/15/20 09/16/20 09/17/20 06:59 06:59 06:59 Intake Total 666.5 548 30 Output Total 1415 1025 70 Balance -748.5 -477 -40 Result Diagrams: 09/14/20 07:53 09/16/20 03:38 Additional Labs: Accuchecks 09/16/20 09/15/20 09/15/20 11:31 22:54 15:55 POC Glucose 130 H 118 H 140 H Radiology Reviewed by me: Yes EKG Reviewed by me: Yes ROS - Review of Systems ROS unobtainable: due to mental status - Medication Medications: Active Medications Generic Name Dose Route Start Last Admin Trade Name Freq PRN Reason Stop Dose Admin Hydrocodone Bitart/Acetaminophen 1 tab 09/14/20 12:22 09/15/20 14:02 Hydrocodone/Acetaminophen 5/325 Mg Tablet PO 1 tab Q4H PRN Administration Mild Pain (1-3) Albuterol Sulfate 2 puff 09/14/20 18:30 09/16/20 08:10 Albuterol 200 Puff (6.7gm Inhaler) INH Not Given BID-RT VIRI Albuterol/Ipratropium 3 ml 09/14/20 13:00 09/16/20 12:08 Ipratropium/Albuterol Sulfate 3 Ml Neb NEB 3 ml [id number] VIRI Administration Aspirin 81 mg 09/15/20 09:00 09/16/20 08:48 Aspirin Chewable 81 Mg Tab PO Not Given QAM VIRI Atorvastatin Calcium 20 mg 09/14/20 21:00 09/15/20 20:04 Atorvastatin Calcium 20 Mg Tab PO Not Given HS VIRI Carvedilol 12.5 mg 09/14/20 21:00 09/16/20 08:48 Carvedilol 6.25 Mg Tab PO Not Given BID VIRI Clopidogrel Bisulfate 75 mg 09/15/20 09:00 09/16/20 08:48 Clopidogrel Bisulfate 75 Mg Tab PO Not Given [facility] Insulin Human Regular 0 units 09/14/20 12:22 09/14/20 17:23 Insulin Regular 300 Units/3 Ml Vial SC 2 unit .MILD SLIDING SCALE PRN Administration Mild Correctional Scale Metformin HCl 500 mg 09/14/20 17:00 09/16/20 08:47 Metformin 500 Mg Tab PO Not Given BID-[facility] Sacubitril/Valsartan 1 tab 09/14/20 21:00 09/16/20 08:48 Sacubitril 49 Mg/Valsartan 51 Mg Tablet PO Not Given BID VIRI Venlafaxine HCl 37.5 mg 09/15/20 09:00 09/16/20 08:48 Venlafaxine Xr 37.5 Mg Cap PO Not Given DAILY VIRI - Exam General Appearance: ill appearing Eye: PERRL ENT: normocephalic atraumatic Neck: supple Respiratory: CTAB Cardiovascular: RRR Gastrointestinal: soft Extremities: no cyanosis Skin: normal turgor Neurological: no new deficit, facial droop, hemiplegia, speech deficit Musculoskeletal: normal strength, no muscle wasting PSYCH: oriented to person Results - Labs Result Diagrams: 09/14/20 07:53 09/16/20 03:38 Lab results: WBC 6.4 thou/uL (4.8-10.8) 09/14/20 07:53 Hgb 15.9 g/dL (14.0-18.0) 09/14/20 07:53 Hct 48.3 % (42.0-52.0) 09/14/20 07:53 MCV 92.4 fL (78.0-98.0) 09/14/20 07:53 Plt Count 233 thou/uL (130-400) 09/14/20 07:53 Sodium 139 mmol/L (136-145) 09/16/20 03:38 Potassium 4.1 mmol/L (3.5-5.1) 09/16/20 03:38 Chloride 109 mmol/L (98-107) H 09/16/20 03:38 Carbon Dioxide 20 mmol/L (23-31) L 09/16/20 03:38 BUN 26 mg/dL (8.4-25.7) H 09/16/20 03:38 Creatinine 1.08 mg/dL (0.7-1.3) 09/16/20 03:38 Glucose 124 mg/dL (80-115) H 09/16/20 03:38 Calcium 9.1 mg/dL (7.8-10.44) 09/16/20 03:38 PN A/P (1) Acute CVA (cerebrovascular accident) Code(s): I63.9 - CEREBRAL INFARCTION, UNSPECIFIED Status: Acute (2) Acute on chronic systolic ACC/AHA stage C congestive heart failure Code(s): I50.23 - ACUTE ON CHRONIC SYSTOLIC (CONGESTIVE) HEART FAILURE Status: Acute (3) COPD (chronic obstructive pulmonary disease) Status: Acute (4) Subdural hematoma Code(s): S06.5X9A - TRAUM SUBDR HEM W LOC OF UNSP DURATION, INIT Status: Acute (5) DM type 2 (diabetes mellitus, type 2) Status: Chronic Qualifiers: Diabetes mellitus residential insulin use: without account review specialist use Diabetes m ellitus complication status: with unspecified complications (6) H/O: CVA (cerebrovascular accident) Code(s): Z86.73 - PRSNL HX OF TIA (TIA), AND CEREB INFRC W/O RESID DEFICITS Status: Chronic (7) HLD (hyperlipidemia) Code(s): E78.5 - HYPERLIPIDEMIA, UNSPECIFIED Status: Chronic Qualifiers: Hyperlipidemia type: unspecified Qualified Code(s): E78.5 - Hyperlipidemia, unspecified (8) HTN (hypertension) Code(s): I10 - ESSENTIAL (PRIMARY) HYPERTENSION Status: Chronic Qualifiers: Hypertension type: essential hypertension Qualified Code(s): I10 - Essential (primary) hypertension (9) Tobacco dependence Code(s): F17.200 - NICOTINE DEPENDENCE, UNSPECIFIED, UNCOMPLICATED Status: Chronic - Plan Daily Plan: PT/OT, speech therapy, DVT proph w/SCDs Mr. Stubbs is a 65-year-old male with history significant for CAD artery stenosis s/p carotid endarterectomy presented with acute onset right hemiplegia with dysarthria postoperatively after surgery. Patient seems uncomfortable today and is short of breath. He is not consistent in following commands. Head CT ordered to rule out acute intracranial process. Respiratory therapy contacted regarding shortness of breath. Continue aspirin and Plavix for secondary stroke prevention. Continue high intensity statin for secondary stroke prevention. Telemetry. Neurochecks every 4 hours Permissive control of blood pressure at this time. Strict control of blood glucose. Continue home medications. Patient has ongoing issues with dysphagia which is worsened because of the new acute intracranial process. Speech therapy is on board. PT/OT Continue medical management per primary team. Plan discussed in detail with the patient and during stroke rounds.
--- NOTE | 2020-09-16 13:18 | CT ---
Exam: Head CT without contrast HISTORY: Increased altered mental status. Evaluate for hemorrhage. COMPARISON: 09/10/2020 FINDINGS: Hemorrhage: No intraparenchymal hemorrhage or extra-axial hematoma. Brain parenchyma: Stable encephalomalacia and gliosis involving the right frontal lobe, right tempora l lobe. There is evolutionary change due to a subacute infarct involving the left frontal temporal parietal region. Ventricular system: Ventricles and sulci are patent and symmetric. Calvarium: Intact. Sinuses and mastoid air cells: Adequate aeration. IMPRESSION: Subacute infarct involving the left MCA distribution. Results of study conveyed to Dr. Abdul via [employer] 09/16/2020 at 1:15 PM Code CR
[2020-09-16] MEDS: HYDROcodone/Acetaminophen 5/325 mg Tablet PO PRN ×2 (17:40→22:28)
[2020-09-16] MEDS: Tamsulosin HCl 0.4 MG CAP PO SCH (20:53)
[2020-09-16] MEDS: Atorvastatin Calcium 20 MG TAB PO SCH (20:53)
[2020-09-16] MEDS: Acetaminophen 325 MG TAB PO PRN (20:53)
[2020-09-17] MEDS: Albuterol 200 PUFF (6.7GM INHALER) INH SCH ×2 (05:35→19:27)
[2020-09-17] MEDS: metFORMIN 500 MG TAB PO SCH ×2 (10:03→16:14)
[2020-09-17] MEDS: Aspirin Chewable 81 MG TAB PO SCH (10:05)
[2020-09-17] MEDS: Carvedilol 6.25 MG TAB PO SCH ×2 (10:05→22:28)
[2020-09-17] MEDS: Sacubitril 49 MG/Valsartan 51 MG TABLET PO SCH ×2 (10:06→22:28)
[2020-09-17] MEDS: Venlafaxine XR 37.5 MG CAP PO SCH (10:06)
[2020-09-17] MEDS: Tamsulosin HCl 0.4 MG CAP PO SCH ×2 (10:06→22:28)
[2020-09-17] MEDS: Clopidogrel Bisulfate 75 MG TAB PO SCH (10:06)
[2020-09-17] MEDS: Atorvastatin Calcium 20 MG TAB PO SCH (22:28)
[2020-09-17] MEDS: HYDROcodone/Acetaminophen 5/325 mg Tablet PO PRN (22:48)
[2020-09-18] MEDS: HYDROcodone/Acetaminophen 5/325 mg Tablet PO PRN ×3 (05:48→17:39)
[2020-09-18] MEDS: Albuterol 200 PUFF (6.7GM INHALER) INH SCH ×2 (06:55→19:41)
[2020-09-18] MEDS: Aspirin Chewable 81 MG TAB PO SCH (09:03)
[2020-09-18] MEDS: Carvedilol 6.25 MG TAB PO SCH ×2 (09:04→23:00)
[2020-09-18] MEDS: Clopidogrel Bisulfate 75 MG TAB PO SCH (09:04)
[2020-09-18] MEDS: Tamsulosin HCl 0.4 MG CAP PO SCH ×2 (09:04→23:00)
[2020-09-18] MEDS: Sacubitril 49 MG/Valsartan 51 MG TABLET PO SCH ×2 (09:05→23:00)
[2020-09-18] MEDS: Venlafaxine XR 37.5 MG CAP PO SCH (09:06)
[2020-09-18] MEDS: metFORMIN 500 MG TAB PO SCH ×2 (09:21→18:18)
[2020-09-18] MEDS: Atorvastatin Calcium 20 MG TAB PO SCH (23:00)
[2020-09-19] MEDS: HYDROcodone/Acetaminophen 5/325 mg Tablet PO PRN ×4 (05:59→22:34)
[2020-09-19] MEDS: Albuterol 200 PUFF (6.7GM INHALER) INH SCH (07:01)
[2020-09-19] MEDS: metFORMIN 500 MG TAB PO SCH ×2 (09:27→17:49)
[2020-09-19] MEDS: Sacubitril 49 MG/Valsartan 51 MG TABLET PO SCH ×2 (09:36→22:33)
[2020-09-19] MEDS: Aspirin Chewable 81 MG TAB PO SCH (09:37)
[2020-09-19] MEDS: Clopidogrel Bisulfate 75 MG TAB PO SCH (09:38)
[2020-09-19] MEDS: Carvedilol 6.25 MG TAB PO SCH ×2 (09:39→22:34)
[2020-09-19] MEDS: Tamsulosin HCl 0.4 MG CAP PO SCH ×2 (09:39→22:34)
[2020-09-19] MEDS: Venlafaxine XR 37.5 MG CAP PO SCH (09:40)
--- NOTE | 2020-09-19 12:38 | PDOC.NEUPN ---
- Subjective Encounter Date: 09/19/20 Subjective: Patient awake alert and denies any new complaints. - Objective Vital Signs & Weight: Vital Signs (12 hours) Temp Pulse Resp BP Pulse Ox 09/19/20 11:46 97.5 F L 56 L 16 121/67 95 09/19/20 07:32 98.1 F 60 19 133/73 95 09/19/20 07:03 74 16 94 L 09/19/20 05:32 97.6 F 71 22 H 140/88 96 09/19/20 00:39 92 L Weight Admit Weight 242 lb Weight 242 lb Most Recent Monitor Data Heart Rate from ECG 74 NIBP 145/112 NIBP BP-Mean 123 Respiration from ECG 27 SpO2 100 I&O: 09/18/20 09/19/20 09/20/20 06:59 06:59 06:59 Intake Total 780 780 Balance 780 780 Result Diagrams: 09/14/20 07:53 09/16/20 03:38 Additional Labs: Accuchecks 09/19/20 09/19/20 09/18/20 10:41 05:41 22:46 POC Glucose 157 H 130 H 115 H 09/18/20 09/18/20 18:55 05:47 POC Glucose 120 H 137 H Radiology Reviewed by me: Yes EKG Reviewed by me: Yes ROS - Review of Systems Constitutional: denies: fever, chills, sweats, weakness, malaise, other Eyes: denies: pain, vision change, conjunctivae inflammation, eyelid inflammation, redness, other ENT: denies: ear pain, ear discharge, nose pain, nose discharge, nose congestion, mouth pain, mouth swelling, throat pain, throat swelling, other Gastrointestinal: denies: nausea, vomiting, abdominal pain, diarrhea, constipation, melena, hematochezia, other Neurological: reports: weakness, numbness, change in speech All Systems: All other systems reviewed; all pertinent +/- noted in HPI/Subj - Medication Medications: Active Medications Generic Name Dose Route Start Last Admin Trade Name Freq PRN Reason Stop Dose Admin Acetaminophen 650 mg 09/14/20 12:22 09/16/20 20:53 Acetaminophen 325 Mg Tab PO 650 mg Q4H PRN Administration Fever > 101 or headache Hydrocodone Bitart/Acetaminophen 1 tab 09/14/20 12:22 09/19/20 10:33 Hydrocodone/Acetaminophen 5/325 Mg Tablet PO 1 tab Q4H PRN Administration Mild Pain (1-3) Albuterol Sulfate 2 puff 09/14/20 18:30 09/19/20 07:01 Albuterol 200 Puff (6.7gm Inhaler) INH Not Given BID-RT VIRI Albuterol/Ipratropium 3 ml 09/14/20 13:00 09/19/20 07:03 Ipratropium/Albuterol Sulfate 3 Ml Neb NEB 3 ml [id number] VIRI Administration Aspirin 81 mg 09/15/20 09:00 09/19/20 09:37 Aspirin Chewable 81 Mg Tab PO 81 mg QAM VIRI Administration Atorvastatin Calcium 20 mg 09/14/20 21:00 09/18/20 23:00 Atorvastatin Calcium 20 Mg Tab PO 20 mg HS VIRI Administration Carvedilol 12.5 mg 09/14/20 21:00 09/19/20 09:39 Carvedilol 6.25 Mg Tab PO 12.5 mg BID VIRI Administration Clopidogrel Bisulfate 75 mg 09/15/20 09:00 09/19/20 09:38 Clopidogrel Bisulfate 75 Mg Tab PO 75 mg QAM VIRI Administration Insulin Human Regular 0 units 09/14/20 12:22 09/14/20 17:23 Insulin Regular 300 Units/3 Ml Vial SC 2 unit .MILD SLIDING SCALE PRN Administration Mild Correctional Scale Metformin HCl 500 mg 09/14/20 17:00 09/19/20 09:27 Metformin 500 Mg Tab PO Not Given BID-WM VIRI Sacubitril/Valsartan 1 tab 09/14/20 21:00 09/19/20 09:36 Sacubitril 49 Mg/Valsartan 51 Mg Tablet PO 1 tab BID VIRI Administration Tamsulosin HCl 0.4 mg 09/17/20 09:00 09/19/20 09:39 Tamsulosin Hcl 0.4 Mg Cap PO 0.4 mg DAILY VIRI Administration Tamsulosin HCl 0.4 mg 09/16/20 21:00 09/18/20 23:00 Tamsulosin Hcl 0.4 Mg Cap PO 0.4 mg HS VIRI Administration Venlafaxine HCl 37.5 mg 09/15/20 09:00 09/19/20 09:40 Venlafaxine Xr 37.5 Mg Cap PO Not Given DAILY VIRI - Exam General Appearance: awake alert ENT: normocephalic atraumatic Neck: supple Respiratory: CTAB Cardiovascular: RRR Gastrointestinal: soft Extremities: no cyanosis Skin: normal turgor Neurological: facial droop, hemiplegia, speech deficit Musculoskeletal: no muscle wasting PSYCH: normal affect, normal behavior, oriented to person, oriented to place Results - Labs Result Diagrams: 09/14/20 07:53 09/16/20 03:38 Lab results: WBC 6.4 thou/uL (4.8-10.8) 09/14/20 07:53 Hgb 15.9 g/dL (14.0-18.0) 09/14/20 07:53 Hct 48.3 % (42.0-52.0) 09/14/20 07:53 MCV 92.4 fL (78.0-98.0) 09/14/20 07:53 Plt Count 233 thou/uL (130-400) 09/14/20 07:53 Sodium 139 mmol/L (136-145) 09/16/20 03:38 Potassium 4.1 mmol/L (3.5-5.1) 09/16/20 03:38 Chloride 109 mmol/L (98-107) H 09/16/20 03:38 Carbon Dioxide 20 mmol/L (23-31) L 09/16/20 03:38 BUN 26 mg/dL (8.4-25.7) H 09/16/20 03:38 Creatinine 1.08 mg/dL (0.7-1.3) 09/16/20 03:38 Glucose 124 mg/dL (80-115) H 09/16/20 03:38 Calcium 9.1 mg/dL (7.8-10.44) 09/16/20 03:38 - Radiology Interpretation CT scan - head Status: image reviewed by me, report reviewed by me Additional Comment: Subacute infarction in the left middle cerebral artery distribution. 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 use: without fdc use Diabetes mellitus complication status: with unspecified complications (6) H/O: CVA (cerebrovascular accident) Code(s): Z86.73 - PRSNL HX OF TIA (TIA), AND CEREB INFRC W/O RESID DEFICITS Status: Chronic (7) HLD (hyperlipidemia) Code(s): E78.5 - HYPERLIPIDEMIA, UNSPECIFIED Status: Chronic Qualifiers: Hyperlipidemia type: unspecified Qualified Code(s): E78.5 - Hyperlipidemia, unspecified (8) HTN (hypertension) Code(s): I10 - ESSENTIAL (PRIMARY) HYPERTENSION Status: Chronic Qualifiers: Hypertension type: essential hypertension Qualified Code(s): I10 - Essential (primary) hypertension (9) Tobacco dependence Code(s): F17.200 - NICOTINE DEPENDENCE, UNSPECIFIED, UNCOMPLICATED Status: Chronic - Plan Daily Plan: PT/OT, speech therapy, DVT proph w/SCDs Mr. Stubbs is a 65-year-old male with history significant for CAD artery stenosis s/p carotid endarterectomy presented with acute onset right hemiplegia with dysarthria postoperatively after surgery. Patient seems better today. Head CT on 09/16/2020 was consistent with subacute infarction in the left middle cerebral artery region. No acute bleed. Continue aspirin and Plavix for secondary stroke prevention. Continue high intensity statin for secondary stroke prevention. EEG reviewed and was negative for seizure activity. Telemetry. Neurochecks every 4 hours Permissive control of blood pressure at this time. Strict control of blood glucose. Continue home medications. Sitter long-term anticoagulation 7 days post stroke. Patient has ongoing issues with dysphagia which is worsened because of the new acute intracranial process. Speech therapy is on board. PT/OT Continue medical management per primary team. Plan discussed in detail with the patient and during stroke rounds.
[2020-09-19] MEDS ORDERED: Amiodarone 450 MG in Dextrose 5% in Water 250 ML IVPB SCH (19:45)
[2020-09-19] MEDS ORDERED: Magnesium 2 GM/50 ML 2 GM in Premix Bag 1 BAG IVPB SCH (20:00)
[2020-09-19] MEDS: Atorvastatin Calcium 20 MG TAB PO SCH (22:34)
--- NOTE | 2020-09-19 23:02 | CON ---
DATE OF CONSULTATION: 09/19/2020 INDICATION FOR CONSULTATION: This is a 65-year-old patient, who recently underwent stent placement to the left carotid artery, who has suffered a perioperative CVA. He has now developed actually sustained ventricular tachycardia. He had what appeared to be 42 beats of ventricular tachycardia. This may have been some type of SVT with aberration. There is no indication he had any atrial fibrillation; however, he has an AICD in place, but the AICD did not fire after 42 beats of nonsustained ventricular tachycardia. We will need to determine re-evaluate the AICD, determine how long before shock would be initiated with the nonsustained ventricular tachycardia. I do not see that this has been recently evaluated or interrogated, but perhaps on his last admission, the device was interrogated. He has a single-chamber ICD in the right ventricle. He is very difficult to understand as far as the history is concerned, but most of the history is obtained from the records. Please refer to the notes dictated by Dr. Valadez just a week ago when he was in the hospital. He was seen by Dr. Valadez on 09/08/2020 with a very thorough discussion of his past medical history from a cardiac standpoint with a history of non-Q wave OR, history of bypass surgery, coronary artery disease. His most recent cardiac catheterization is well outlined in the notes from Dr. Valadez. He also has severe left ventricular systolic dysfunction. He has been treated medically since his last cardiac catheterization. He was not felt to be a candidate for redo bypass. I believe all of his bypasses have closed. He has been very noncompliant apparently with followups. He has had CVAs in 2019. He had at that time severe carotid artery stenosis. He failed to come back for followup until now. He returned and underwent surgery and suffered another repeat CVA with a right hemiparesis and dysarthria at this time. He denies any other cardiac complaints, but is short of breath during the evaluation, but also has a history of COPD. We will discuss this case with Dr. Jacobson, who will try to interrogate the device to see exactly how many episodes of this is truly ventricular tachycardia. We will need to determine the settings of the device. PAST MEDICAL HISTORY: Significant for the coronary artery disease, bypass surgery, CVAs, and diabetes. He has had a subdural hematoma. He has hypercholesterolemia, hypertension, and COPD. He has history of supposedly paroxysmal atrial fibrillation, but this has not been documented, will be very difficult to determine since he only has a single-chamber ICD. He also has a history of back surgery and bypass surgery with 5-vessel bypass. He also has a history of obesity. REVIEW OF SYSTEMS: Please refer to the notes already dictated. ALLERGIES: NONE. MEDICATIONS: His medications include at this time at least include; 1. Albuterol sulfate inhaler. 2. Aspirin 81 mg a day. 3. Lipitor 20 mg q.p.m. 4. Coreg, he is uncertain of the dose he has taken the Coreg. 5. He is on Plavix 75 mg a day. 6. Albuterol sulfate. 7. Metformin 500 mg b.i.d. 8. Entresto 49/51 one b.i.d. 9. Flomax 0.4 mg q.p.m. 10. He takes Effexor 37.5 mg daily. 11. Ipratropium/albuterol sulfate. 12. Tylenol. 13. He was on IV fentanyl. 14. Hydrocodone. 15. He is on insulin sliding scale as well as Zofran as needed. LABORATORY DATA: Shows a hemoglobin of 15.9, WBC of 6.4, and platelet count of 233,000. He has had no recent basic metabolic profile since the at which time the sodium was 139, potassium was 4.1, bicarb was 20 with a chloride of 109, BUN was 26, creatinine was 1.08, and blood sugar was anywhere between [address] scan on September 16 showed a left middle cerebral artery area infarct. His carotid endarterectomy was 09/14. PHYSICAL EXAMINATION: GENERAL: Reveals an elderly gentleman, who has obviously difficulty speaking. He has a right hemiparesis. HEENT: Shows head to be normocephalic. He has a healing incision underneath just above the left clavicular area in the neck after his recent stent placement. CHEST: Actually is clear to auscultation. CARDIOVASCULAR: At this time, reveals a regular rate and rhythm. I did not hear any gross murmurs. There are no heaves or thrills. He has a well-healed surgical incision over the AICD site. The patient has developed episodes of ventricular tachycardia. ABDOMEN: Shows obesity with positive bowel sounds. EXTREMITIES: Show no clubbing, cyanosis, or edema. Pedal pulses are present, somewhat difficult to palpate, but they are present. NEUROLOGIC: The patient has obviously CVA. SKIN: Warm and dry. IMPRESSION AND PLAN: 1. Elderly gentleman status post perioperative cerebrovascular accident after left carotid stent placement with a previous stroke in the same area apparently. This is being followed by the neurologist. 2. New onset of ventricular tachycardia. This appears to be ventricular tachycardia, uncertain as to why the defibrillator did not try to pace terminate or shocked the patient with these long episodes of which appears to be ventricular tachycardia of about 42 beats. He has had another couple of episodes since that time, which were shorter in nature, but again no indication that the device has tried to pace terminate or shocked the patient. We will have this device interrogated. 3. Chronic obstructive pulmonary disease. The patient does appear to be short of breath and some of this may be due to his chronic obstructive pulmonary disease. 4. History of cardiomyopathy. His last echocardiogram was on September 08, which did show an ejection fraction of 30% to 35% with moderate mitral valve regurgitation and left ventricular dilatation. At this time, he is not on any diuretics. He may need to have some at least some diuretics in order to prevent further congestive heart failure symptoms. 5. Coronary artery disease. Apparently, he is not a candidate for redo bypass and he has significant disease with grafts, which were occluded. According to Dr. Valadez's last cardiac catheterization, the bypass grafts were all occluded. 6. History of tobacco abuse. The patient said he stopped smoking about 2 weeks ago at the time of his most recent admission, also at that time, he had a CVA and possible subdural hematoma. Further care of the patient will be by Dr. Valadez when he visits with the patient tomorrow. In the interim, I will start the patient on amiodarone due to what appears to be ventricular tachycardia and we will ask that the device be interrogated to determine whether or not this is truly a ventricular tachycardia and why the device did not pace terminate or try to pace terminate or deliver shock. Apparently, he was asymptomatic at the time of the ventricular tachycardia. Job ID: [id number]
[2020-09-20] MEDS ORDERED: Amiodarone 150 MG, Admixture Fee 1 EACH in Dextrose 5% in Water 100 ML IVPB SCH (00:15)
[2020-09-20] MEDS ORDERED: Amiodarone 200 MG TAB PO SCH (01:45)
[2020-09-20] MEDS: HYDROcodone/Acetaminophen 5/325 mg Tablet PO PRN ×4 (02:17→22:10)
[2020-09-20 05:30] LABS: Anion Gap 14 mmol/L (10-20); BUN (Urea Nitrogen) 26 mg/dL (8.4-25.7); Calc. Creatinine Clearance 133 mL/min (70-130); Calcium 8.8 mg/dL (7.8-10.44); Carbon Dioxide 18 mmol/L (23-31); Chloride 109 mmol/L (98-107); Estimated GFR-MDRD 88; Glucose 121 mg/dL (80-115); Sodium 137 mmol/L (136-145)
--- NOTE | 2020-09-20 07:56 | PRG ---
DATE OF SERVICE: 09/20/2020 Yesterday, the patient had some ventricular tachycardia, which was not terminated by his defibrillator. He was seen by Dr. Machado and this evaluation is ongoing. His blood pressure has been stable and heart rate is in the 50s. Awaiting evaluation and possible transfer to the rehab center following his stroke. Given his family situation, I suspect the patient will need long-term [facility] care, but we will see how he proceeds at rehab. Job ID: [id number]
[2020-09-20] MEDS: Carvedilol 6.25 MG TAB PO SCH ×2 (08:07→22:12)
[2020-09-20] MEDS: Clopidogrel Bisulfate 75 MG TAB PO SCH (08:07)
[2020-09-20] MEDS: Venlafaxine XR 37.5 MG CAP PO SCH (08:07)
[2020-09-20] MEDS: Aspirin Chewable 81 MG TAB PO SCH (08:07)
[2020-09-20] MEDS: metFORMIN 500 MG TAB PO SCH ×2 (08:07→16:43)
[2020-09-20] MEDS: Sacubitril 49 MG/Valsartan 51 MG TABLET PO SCH ×2 (08:07→22:10)
--- NOTE | 2020-09-20 12:04 | PDOC.NEUPN ---
- Subjective Encounter Date: 09/20/20 Subjective: Mr. Stubbs denies any new complaints in the last 24 hours. - Objective Vital Signs & Weight: Vital Signs (12 hours) Temp Pulse Resp BP BP Pulse Ox 09/20/20 11:20 97.7 F 57 L 18 137/77 97 09/20/20 08:07 122/66 09/20/20 07:32 97.7 F 55 L 19 122/66 94 L 09/20/20 06:56 98 09/20/20 06:54 55 L 18 99 09/20/20 03:58 98.4 F 58 L 18 135/73 96 09/20/20 00:36 16 Weight Admit Weight 242 lb Weight 242 lb Most Recent Monitor Data Heart Rate from ECG 74 NIBP 145/112 NIBP BP-Mean 123 Respiration from ECG 27 SpO2 100 I&O: 09/19/20 09/20/20 09/21/20 06:59 06:59 06:59 Intake Total 780 720 Balance 780 720 Result Diagrams: 09/14/20 07:53 09/20/20 04:51 Additional Labs: Accuchecks 09/20/20 09/19/20 10:19 16:30 POC Glucose 126 H 117 H Radiology Reviewed by me: Yes EKG Reviewed by me: Yes ROS - Review of Systems Constitutional: denies: fever, chills, sweats, weakness, malaise, other Eyes: denies: pain, vision change, conjunctivae inflammation, eyelid inflammation, redness, other Respiratory: denies: cough, dry, shortness of breath, hemoptysis, SOB with excertion, pleuritic pain, sputum, wheezing, other All Systems: All other systems reviewed; all pertinent +/- noted in HPI/Subj - Medication Medications: Active Medications Generic Name Dose Route Start Last Admin Trade Name Freq PRN Reason Stop Dose Admin Acetaminophen 650 mg 09/14/20 12:22 09/16/20 20:53 Acetaminophen 325 Mg Tab PO 650 mg Q4H PRN Administration Fever > 101 or headache Hydrocodone Bitart/Acetaminophen 1 tab 09/14/20 12:22 09/20/20 08:07 Hydrocodone/Acetaminophen 5/325 Mg Tablet PO 1 tab Q4H PRN Administration Mild Pain (1-3) Albuterol/Ipratropium 3 ml 09/14/20 13:00 09/20/20 06:54 Ipratropium/Albuterol Sulfate 3 Ml Neb NEB 3 ml [id number] VIRI Administration Aspirin 81 mg 09/15/20 09:00 09/20/20 08:07 Aspirin Chewable 81 Mg Tab PO 81 mg QAM VIRI Administration Atorvastatin Calcium 20 mg 09/14/20 21:00 09/19/20 22:34 Atorvastatin Calcium 20 Mg Tab PO 20 mg HS VIRI Administration Carvedilol 12.5 mg 09/14/20 21:00 09/20/20 08:07 Carvedilol 6.25 Mg Tab PO 12.5 mg BID VIRI Administration Clopidogrel Bisulfate 75 mg 09/15/20 09:00 09/20/20 08:07 Clopidogrel Bisulfate 75 Mg Tab PO 75 mg QAM VIRI Administration Insulin Human Regular 0 units 09/14/20 12:22 09/14/20 17:23 Insulin Regular 300 Units/3 Ml Vial SC 2 unit .MILD SLIDING SCALE PRN Administration Mild Correctional Scale Metformin HCl 500 mg 09/14/20 17:00 09/20/20 08:07 Metformin 500 Mg Tab PO 500 mg BID-WM VIRI Administration Sacubitril/Valsartan 1 tab 09/14/20 21:00 09/20/20 08:07 Sacubitril 49 Mg/Valsartan 51 Mg Tablet PO 1 tab BID VIRI Administration Tamsulosin HCl 0.4 mg 09/16/20 21:00 09/19/20 22:34 Tamsulosin Hcl 0.4 Mg Cap PO 0.4 mg HS VIRI Administration Venlafaxine HCl 37.5 mg 09/15/20 09:00 09/20/20 08:07 Venlafaxine Xr 37.5 Mg Cap PO 37.5 mg DAILY VIRI Administration - Exam General Appearance: awake alert Eye: PERRL ENT: normocephalic atraumatic Neck: supple Respiratory: CTAB Cardiovascular: RRR Gastrointestinal: soft Extremities: no cyanosis Skin: normal turgor Neurological: facial droop, hemiplegia Musculoskeletal: no muscle wasting PSYCH: normal affect, normal behavior, A&O x 3 Results - Labs Result Diagrams: 09/14/20 07:53 09/20/20 04:51 Lab results: WBC 6.4 thou/uL (4.8-10.8) 09/14/20 07:53 Hgb 15.9 g/dL (14.0-18.0) 09/14/20 07:53 Hct 48.3 % (42.0-52.0) 09/14/20 07:53 MCV 92.4 fL (78.0-98.0) 09/14/20 07:53 Plt Count 233 thou/uL (130-400) 09/14/20 07:53 Sodium 137 mmol/L (136-145) 09/20/20 04:51 Potassium 4.0 mmol/L (3.5-5.1) 09/20/20 04:51 Chloride 109 mmol/L (98-107) H 09/20/20 04:51 Carbon Dioxide 18 mmol/L (23-31) L 09/20/20 04:51 BUN 26 mg/dL (8.4-25.7) H 09/20/20 04:51 Creatinine 0.87 mg/dL (0.7-1.3) 09/20/20 04:51 Glucose 121 mg/dL (80-115) H 09/20/20 04:51 Calcium 8.8 mg/dL (7.8-10.44) 09/20/20 04:51 PN A/P (1) Acute CVA (cerebrovascular accident) Code(s): I63.9 - CEREBRAL INFARCTION, UNSPECIFIED Status: Acute (2) Acute on chronic systolic ACC/AHA stage C congestive heart failure Code(s): I50.23 - ACUTE ON CHRONIC SYSTOLIC (CONGESTIVE) HEART FAILURE Status: Acute (3) COPD (chronic obstructive pulmonary disease) Status: Acute (4) Subdural hematoma Code(s): S06.5X9A - TRAUM SUBDR HEM W LOC OF UNSP DURATION, INIT Status: Acute (5) DM type 2 (diabetes mellitus, type 2) Status: Chronic Qualifiers: 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 Diabetes mellitus complication status: with unspecified complications (6) H/O: CVA (cerebrovascular accident) Code(s): Z86.73 - PRSNL HX OF TIA (TIA), AND CEREB INFRC W/O RESID DEFICITS Status: Chronic (7) HLD (hyperlipidemia) Code(s): E78.5 - HYPERLIPIDEMIA, UNSPECIFIED Status: Chronic Qualifiers: Hyperlipidemia type: unspecified Qualified Code(s): E78.5 - Hyperlipidemia, unspecified (8) HTN (hypertension) Code(s): I10 - ESSENTIAL (PRIMARY) HYPERTENSION Status: Chronic Qualifiers: Hypertension type: essential hypertension Qualified Code(s): I10 - Essential (primary) hypertension (9) Tobacco dependence Code(s): F17.200 - NICOTINE DEPENDENCE, UNSPECIFIED, UNCOMPLICATED Status: Chronic - Plan Daily Plan: PT/OT, speech therapy, DVT proph w/SCDs Mr. Stubbs is a 65-year-old male with history significant for CAD artery stenosis s/p carotid endarterectomy presented with acute onset right hemiplegia with dysarthria postoperatively after surgery. Patient feels better today and denies any new complaints in the last 24 hours. Case management on board regarding discharge planning. Awaiting discharge to rehab pending insurance. Patient has history of atrial fibrillation. Consider starting long-term anticoagulation 7 days post stroke. Head CT on 09/16/2020 was consistent with subacute infarction in the left middle cerebral artery region. No acute bleed. Continue aspirin and Plavix for secondary stroke prevention. Continue high intensity statin for secondary stroke prevention. EEG reviewed and was negative for seizure activity. Telemetry. Neurochecks every 4 hours Strict control of blood glucose and blood pressure. Continue home medications. Patient has ongoing issues with dysphagia which is worsened because of the new acute intracranial process. Speech therapy is on board. Continue PT/OT Continue medical management per primary team. Plan discussed in detail with the patient and during MDR rounds.
--- NOTE | 2020-09-20 16:11 | CON ---
DATE OF CONSULTATION: 09/20/2020 ADDITIONAL REFERRING PHYSICIAN: Mando Valadez MD HISTORY OF PRESENT ILLNESS: I am seeing Mr. 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 His problems are; 1. Ventricular tachycardia. a. A 42 beats ventricular tachycardia without ICD discharge noted likely stat termination likely below VT detection zone. 2. Chronic systolic congestive heart failure with ischemic cardiomyopathy. a. History of coronary artery bypass grafting surgery in 2001 following a bypass surgery x5 vessels. b. Left heart catheterization in January 2017 revealed occluded bypass graft, managed conservatively. c. Status post single-chamber ICD implantation in September 2017 with a Medtronic device. 3. Coronary artery disease. a. Complete occluded right and restenosed left carotid artery. b. Status post left carotid artery stenting performed on his admission on 09/22/2017. c. Presentation of acute stroke on 09/08/2020. 4. Type 2 diabetes. 5. Hypertension and elevated BMI. ALLERGIES: NONE. MEDICATIONS: At home included; 1. Nitroglycerin. 2. Carvedilol. 3. Clopidogrel. 4. Varenicline. 5. Aspirin. 6. Metformin. 7. Furosemide. 8. Albuterol. 9. Sacubitril/valsartan. 10. Mirtazapine. 11. Venlafaxine. 12. Tylenol with Codeine. 13. Lipitor. SUBJECTIVE: Mr. Stubbs is here after an elective left carotid artery stent. He saw Dr. Dodson on the 14. He had a prior stroke most recently 09/08, but also developed a dense right hemiplegia and dysarthria after the stent placement. He was noted to be in atrial fibrillation on his prior admission and amiodarone were initiated. He is continued on aspirin and Plavix for stroke prevention. He currently has no PND or orthopnea. No loss of consciousness. No fevers, chills, or cough. He does report some beeping from his ICD monitor while at home. REVIEW OF SYSTEMS: Rest of 12-point review of system otherwise unremarkable. PAST MEDICAL HISTORY: As above. Also includes back surgery in the past. SOCIAL HISTORY: The patient smokes. Denies EtOH or drug abuse. FAMILY HISTORY: Negative for coronary artery disease. OBJECTIVE DATA: VITAL SIGNS: Blood pressure is 122/66 and heart rate 55. The weight is 242 pounds. The temperature is 97.7 degrees Fahrenheit. GENERAL: Alert and oriented man, with severe dysarthria, dense hemiparesis on the right. NECK: Supple. Jugular veins not distended. CHEST: Coarse without crackles. HEART: Sounds are regular to rate and rhythm. No murmur or gallop. ABDOMEN: Benign bowel sounds. EXTREMITIES: Positive lower extremities without edema, clubbing, or cyanosis. DATABASE: EKG is reviewed, revealing sinus rhythm, occasional PVCs. On 09/19/2020, there is a 42 beats of VT around 20 seconds with spontaneous termination. ICD interrogation is pending. LABORATORY DATA: White cell count 6.4, hemoglobin 15.9, and platelet count is 333. Sodium 137, potassium 4, BUN is 26, and creatinine 0.87. Brain CT from 09/16/2020 shows subacute infarct in the left MCA distribution. ASSESSMENT AND PLAN: Mr. Stubbs is a 65-year-old gentleman with prior history of congestive heart failure and ischemic cardiomyopathy, who has underwent a single-chamber ICD implant by me in September 2017 shows that he also has advanced carotid artery disease, recent left carotid artery stenting complicated by post procedure stroke. While on telemetry, he did develop a nonsustained ventricular tachycardia up to 42 beats. No implantable cardioverter-defibrillator discharge was noted. I consulted to manage his implantable cardioverter-defibrillator and ventricular tachycardia. My plan is; 1. Regarding his ventricular tachycardia, the tachycardia cycle lengths are up to 130 beats per minute likely below the VT detection zone. That could explain the reasons for not delivering ATP therapies for this. We will interrogate the device to ascertain the exact VT treatment zones. He has received recent amiodarone boluses and further following of his ventricular tachycardia cycle length could be expected; hence, lowering his VT zone may be reasonable. 2. Single-chamber ICD interrogation pending. 3. Possible atrial fibrillation noted on prior ICD interrogation 4. Currently on aspirin and Plavix for thromboprophylaxis. Due to the dense large territory stroke, early initiation of oral anticoagulation is difficult. The recurrence of atrial fibrillation could consider suppression atrial fibrillation with amiodarone or alternative antiarrhythmic agents as well. We will follow up with you in this regard after the implantable cardioverter- defibrillator interrogated. 5. Congestive heart failure ischemic cardiomyopathy, reasonably compensated, managed by Dr. Valadez as outpatient. 6. Subacute CVA as per primary stroke team. Thank you again for allowing me to participate in this patient. Job ID: [id number] MTDD
[2020-09-20] MEDS: Atorvastatin Calcium 20 MG TAB PO SCH (22:09)
[2020-09-20] MEDS: Tamsulosin HCl 0.4 MG CAP PO SCH (22:10)
[2020-09-21] MEDS: Carvedilol 6.25 MG TAB PO SCH ×2 (08:34→23:13)
[2020-09-21] MEDS: Aspirin Chewable 81 MG TAB PO SCH (08:34)
[2020-09-21] MEDS: metFORMIN 500 MG TAB PO SCH ×2 (08:34→17:36)
[2020-09-21] MEDS: Sacubitril 49 MG/Valsartan 51 MG TABLET PO SCH ×2 (08:35→23:13)
[2020-09-21] MEDS: Clopidogrel Bisulfate 75 MG TAB PO SCH (08:35)
[2020-09-21] MEDS: HYDROcodone/Acetaminophen 5/325 mg Tablet PO PRN ×2 (08:35→17:36)
[2020-09-21] MEDS: Venlafaxine XR 37.5 MG CAP PO SCH (08:35)
--- NOTE | 2020-09-21 12:13 | PDOC.NEUPN ---
- Subjective Encounter Date: 09/21/20 Subjective: He is alert and awake but does have speech deficits and continues to have right hemiplegia. - Objective Vital Signs & Weight: Vital Signs (12 hours) Temp Pulse Resp BP BP Pulse Ox 09/21/20 11:51 97.6 F 51 L 18 129/72 97 09/21/20 08:34 137/85 09/21/20 07:20 97.4 F L 61 20 137/85 96 09/21/20 04:00 97.8 F 60 15 148/80 H 94 L 09/21/20 00:16 20 Weight Admit Weight 242 lb Weight 242 lb Most Recent Monitor Data Heart Rate from ECG 74 NIBP 145/112 NIBP BP-Mean 123 Respiration from ECG 27 SpO2 100 I&O: 09/20/20 09/21/20 09/22/20 06:59 06:59 06:59 Intake Total 720 Output Total 1 Balance 720 -1 Result Diagrams: 09/14/20 07:53 09/20/20 04:51 Additional Labs: Accuchecks 09/21/20 09/20/20 09/20/20 10:26 22:06 16:27 POC Glucose 103 H 95 114 H Radiology Reviewed by me: Yes EKG Reviewed by me: Yes ROS - Review of Systems Constitutional: denies: fever, chills, sweats, weakness, malaise, other Eyes: denies: pain, vision change, conjunctivae inflammation, eyelid inflammation, redness, other ENT: denies: ear pain, ear discharge, nose pain, nose discharge, nose congestion, mouth pain, mouth swelling, throat pain, throat swelling, other Cardiovascular: reports: AFIB, CAD, HTN, Hyperlipidemia Gastrointestinal: denies: nausea, vomiting, abdominal pain, diarrhea, constipation, melena, hematochezia, other Musculoskeletal: reports: neck pain Skin: denies: rash, lesions, seema, bruising, other Neurological: reports: weakness, numbness, incoordination, change in speech - Medication Medications: Active Medications Generic Name Dose Route Start Last Admin Trade Name Freq PRN Reason Stop Dose Admin Acetaminophen 650 mg 09/14/20 12:22 09/16/20 20:53 Acetaminophen 325 Mg Tab PO 650 mg Q4H PRN Administration Fever > 101 or headache Hydrocodone Bitart/Acetaminophen 1 tab 09/14/20 12:22 09/21/20 08:35 Hydrocodone/Acetaminophen 5/325 Mg Tablet PO 1 tab Q4H PRN Administration Mild Pain (1-3) Albuterol/Ipratropium 3 ml 09/14/20 13:00 09/21/20 07:37 Ipratropium/Albuterol Sulfate 3 Ml Neb NEB 3 ml [id number] VIRI Administration Aspirin 81 mg 09/15/20 09:00 09/21/20 08:34 Aspirin Chewable 81 Mg Tab PO 81 mg QAM VIRI Administration Atorvastatin Calcium 20 mg 09/14/20 21:00 09/20/20 22:09 Atorvastatin Calcium 20 Mg Tab PO 20 mg HS VIRI Administration Carvedilol 12.5 mg 09/14/20 21:00 09/21/20 08:34 Carvedilol 6.25 Mg Tab PO 12.5 mg BID VIRI Administration Clopidogrel Bisulfate 75 mg 09/15/20 09:00 09/21/20 08:35 Clopidogrel Bisulfate 75 Mg Tab PO 75 mg QAM VIRI Administration Insulin Human Regular 0 units 09/14/20 12:22 09/14/20 17:23 Insulin Regular 300 Units/3 Ml Vial SC 2 unit .MILD SLIDING SCALE PRN Administration Mild Correctional Scale Metformin HCl 500 mg 09/14/20 17:00 09/21/20 08:34 Metformin 500 Mg Tab PO 500 mg BID-WM VIRI Administration Sacubitril/Valsartan 1 tab 09/14/20 21:00 09/21/20 08:35 Sacubitril 49 Mg/Valsartan 51 Mg Tablet PO 1 tab BID VIRI Administration Tamsulosin HCl 0.4 mg 09/16/20 21:00 09/20/20 22:10 Tamsulosin Hcl 0.4 Mg Cap PO 0.4 mg HS VIRI Administration Venlafaxine HCl 37.5 mg 09/15/20 09:00 09/21/20 08:35 Venlafaxine Xr 37.5 Mg Cap PO 37.5 mg DAILY VIRI Administration - Exam General Appearance: awake alert Eye: PERRL ENT: normocephalic atraumatic Neck: supple Respiratory: CTAB Cardiovascular: irregular Gastrointestinal: soft Extremities: no cyanosis Skin: normal turgor Neurological: facial droop, hemiplegia, speech deficit Musculoskeletal: generalized weakness PSYCH: normal affect, normal behavior, oriented to person, oriented to place Results - Labs Result Diagrams: 09/14/20 07:53 09/20/20 04:51 Lab results: WBC 6.4 thou/uL (4.8-10.8) 09/14/20 07:53 Hgb 15.9 g/dL (14.0-18.0) 09/14/20 07:53 Hct 48.3 % (42.0-52.0) 09/14/20 07:53 MCV 92.4 fL (78.0-98.0) 09/14/20 07:53 Plt Count 233 thou/uL (130-400) 09/14/20 07:53 Sodium 137 mmol/L (136-145) 09/20/20 04:51 Potassium 4.0 mmol/L (3.5-5.1) 09/20/20 04:51 Chloride 109 mmol/L (98-107) H 09/20/20 04:51 Carbon Dioxide 18 mmol/L (23-31) L 09/20/20 04:51 BUN 26 mg/dL (8.4-25.7) H 09/20/20 04:51 Creatinine 0.87 mg/dL (0.7-1.3) 09/20/20 04:51 Glucose 121 mg/dL (80-115) H 09/20/20 04:51 Calcium 8.8 mg/dL (7.8-10.44) 09/20/20 04:51 - Radiology Interpretation CT scan - head Status: image reviewed by me, report reviewed by me Additional Comment: Head CT consistent with acute stroke in the left MCA territory PN A/P (1) Acute CVA (cerebrovascular accident) Code(s): I63.9 - CEREBRAL INFARCTION, UNSPECIFIED Status: Acute (2) Acute on chronic systolic ACC/AHA stage C congestive heart failure Code(s): I50.23 - ACUTE ON CHRONIC SYSTOLIC (CONGESTIVE) HEART FAILURE Status: Acute (3) COPD (chronic obstructive pulmonary disease) Status: Acute (4) Subdural hematoma Code(s): S06.5X9A - TRAUM SUBDR HEM W LOC OF UNSP DURATION, INIT Status: Acute (5) DM type 2 (diabetes mellitus, type 2) Status: Chronic Qualifiers: Diabetes mellitus rodent exterminator insulin use: without rodent exterminator use Diabetes mellitus complication status: with unspecified complications (6) H/O: CVA (cerebrovascular accident) Code(s): Z86.73 - PRSNL HX OF TIA (TIA), AND CEREB INFRC W/O RESID DEFICITS Status: Chronic (7) HLD (hyperlipidemia) Code(s): E78.5 - HYPERLIPIDEMIA, UNSPECIFIED Status: Chronic Qualifiers: Hyperlipidemia type: unspecified Qualified Code(s): E78.5 - Hyperlipidemia, unspecified (8) HTN (hypertension) Code(s): I10 - ESSENTIAL (PRIMARY) HYPERTENSION Status: Chronic Qualifiers: Hypertension type: essential hypertension Qualified Code(s): I10 - Essential (primary) hypertension (9) Tobacco dependence Code(s): F17.200 - NICOTINE DEPENDENCE, UNSPECIFIED, UNCOMPLICATED Status: Chronic - Plan Daily Plan: PT/OT, speech therapy, DVT proph w/SCDs Mr. Stubbs is a 65-year-old male with history significant for CAD artery stenosis s/p carotid endarterectomy presented with acute onset right hemiplegia with dysarthria postoperatively after surgery. Patient feels better todaybut does complain of shortness of breath. Case management on board regarding discharge planning. Awaiting discharge to rehab pending insurance. Patient has history of atrial fibrillation. Consider starting long-term oral anticoagulation 7 days post stroke which is 09/22/2020. Cardiology on borad. Head CT on 09/16/2020 was consistent with subacute infarction in the left middle cerebral artery region. No acute bleed. Continue aspirin and Plavix for secondary stroke prevention. Continue high intensity statin for secondary stroke prevention. EEG reviewed and was negative for seizure activity. Telemetry. Neurochecks every 4 hours Strict control of blood glucose and blood pressure. Continue home medications. Patient has ongoing issues with dysphagia which is worsened because of the new acute intracranial process. Speech therapy is on board. Continue PT/OT Continue medical management per primary team. Plan discussed in detail with the patient and during Stroke rounds.
[2020-09-21] MEDS: Tamsulosin HCl 0.4 MG CAP PO SCH (23:13)
[2020-09-21] MEDS: Atorvastatin Calcium 20 MG TAB PO SCH (23:13)
[2020-09-22] MEDS: Aspirin Chewable 81 MG TAB PO SCH (09:25)
[2020-09-22] MEDS: Sacubitril 49 MG/Valsartan 51 MG TABLET PO SCH ×2 (09:25→20:37)
[2020-09-22] MEDS: Carvedilol 6.25 MG TAB PO SCH ×2 (09:26→20:37)
[2020-09-22] MEDS: metFORMIN 500 MG TAB PO SCH ×2 (09:28→16:35)
[2020-09-22] MEDS: Clopidogrel Bisulfate 75 MG TAB PO SCH (09:29)
[2020-09-22] MEDS: Venlafaxine XR 37.5 MG CAP PO SCH (09:30)
[2020-09-22] MEDS: Fluticasone Propionate Nasal Spray 16 gm Bottle NASAL SCH (10:12)
--- NOTE | 2020-09-22 12:26 | PDOC.NEUPN ---
- Subjective Encounter Date: 09/22/20 Subjective: He is alert and awake but continues to have speech deficits and right h emiplegia. - Objective Vital Signs & Weight: Vital Signs (12 hours) Temp Pulse Resp BP BP Pulse Ox 09/22/20 11:00 97.5 F L 57 L 32 H 126/71 96 09/22/20 09:26 154/84 H 09/22/20 07:30 97.6 F 58 L 26 H 130/78 92 L 09/22/20 04:48 96.8 F L 62 20 132/72 95 Weight Admit Weight 242 lb Weight 242 lb Most Recent Monitor Data Heart Rate from ECG 74 NIBP 145/112 NIBP BP-Mean 123 Respiration from ECG 27 SpO2 100 I&O: 09/21/20 09/22/20 09/23/20 06:59 06:59 06:59 Intake Total 300 Output Total 1 Balance 299 Result Diagrams: 09/14/20 07:53 09/20/20 04:51 Additional Labs: Accuchecks 09/22/20 09/22/20 09/21/20 10:39 04:52 16:37 POC Glucose 152 H 94 107 H 09/20/20 06:14 POC Glucose 119 H Radiology Reviewed by me: Yes EKG Reviewed by me: Yes ROS - Review of Systems Constitutional: denies: fever, chills, sweats, weakness, malaise, other Eyes: denies: pain, vision change, conjunctivae inflammation, eyelid inflammation, redness, other ENT: denies: ear pain, ear discharge, nose pain, nose discharge, nose congestion, mouth pain, mouth swelling, throat pain, throat swelling, other All Systems: All other systems reviewed; all pertinent +/- noted in HPI/Subj - Medication Medications: Active Medications Generic Name Dose Route Start Last Admin Trade Name Freq PRN Reason Stop Dose Admin Acetaminophen 650 mg 09/14/20 12:22 09/16/20 20:53 Acetaminophen 325 Mg Tab PO 650 mg Q4H PRN Administration Fever > 101 or headache Hydrocodone Bitart/Acetaminophen 1 tab 09/14/20 12:22 09/21/20 17:36 Hydrocodone/Acetaminophen 5/325 Mg Tablet PO 1 tab Q4H PRN Administration Mild Pain (1-3) Albuterol/Ipratropium 3 ml 09/14/20 13:00 09/22/20 06:50 Ipratropium/Albuterol Sulfate 3 Ml Neb NEB 3 ml [id number] VIRI Administration Albuterol/Ipratropium 3 ml 09/14/20 16:54 09/22/20 04:01 Ipratropium/Albuterol Sulfate 3 Ml Neb NEB 3 ml [id number] PRN Administration SOB &/or Wheezing Aspirin 81 mg 09/15/20 09:00 09/22/20 09:25 Aspirin Chewable 81 Mg Tab PO 81 mg QAM VIRI Administration Atorvastatin Calcium 20 mg 09/14/20 21:00 09/21/20 23:13 Atorvastatin Calcium 20 Mg Tab PO 20 mg HS VIRI Administration Carvedilol 12.5 mg 09/14/20 21:00 09/22/20 09:26 Carvedilol 6.25 Mg Tab PO 12.5 mg BID VIRI Administration Clopidogrel Bisulfate 75 mg 09/15/20 09:00 09/22/20 09:29 Clopidogrel Bisulfate 75 Mg Tab PO 75 mg QAM VIRI Administration Fluticasone Propionate 0 gm 09/22/20 09:00 09/22/20 10:12 Fluticasone Propionate Nasal [place] 16 Gm Bottle NASAL 1 spr DAILY VIRI Administration Insulin Human Regular 0 units 09/14/20 12:22 09/14/20 17:23 Insulin Regular 300 Units/3 Ml Vial SC 2 unit .MILD SLIDING SCALE PRN Administration Mild Correctional Scale Metformin HCl 500 mg 09/14/20 17:00 09/22/20 09:28 Metformin 500 Mg Tab PO 500 mg BID-WM VIRI Administration Sacubitril/Valsartan 1 tab 09/14/20 21:00 09/22/20 09:25 Sacubitril 49 Mg/Valsartan 51 Mg Tablet PO 1 tab BID VIRI Administration Tamsulosin HCl 0.4 mg 09/16/20 21:00 09/21/20 23:13 Tamsulosin Hcl 0.4 Mg Cap PO 0.4 mg HS VIRI Administration Venlafaxine HCl 37.5 mg 09/15/20 09:00 09/22/20 09:30 Venlafaxine Xr 37.5 Mg Cap PO 37.5 mg DAILY VIRI Administration - Exam General Appearance: awake alert Eye: PERRL ENT: normocephalic atraumatic Neck: supple Respiratory: CTAB Cardiovascular: RRR Gastrointestinal: soft Extremities: no cyanosis Skin: normal turgor Neurological: facial droop, hemiplegia, speech deficit Musculoskeletal: normal tone, no muscle wasting PSYCH: normal affect, normal behavior, A&O x 3 Results - Labs Result Diagrams: 09/14/20 07:53 09/20/20 04:51 Lab results: WBC 6.4 thou/uL (4.8-10.8) 09/14/20 07:53 Hgb 15.9 g/dL (14.0-18.0) 09/14/20 07:53 Hct 48.3 % (42.0-52.0) 09/14/20 07:53 MCV 92.4 fL (78.0-98.0) 09/14/20 07:53 Plt Count 233 thou/uL (130-400) 09/14/20 07:53 Sodium 137 mmol/L (136-145) 09/20/20 04:51 Potassium 4.0 mmol/L (3.5-5.1) 09/20/20 04:51 Chloride 109 mmol/L (98-107) H 09/20/20 04:51 Carbon Dioxide 18 mmol/L (23-31) L 09/20/20 04:51 BUN 26 mg/dL (8.4-25.7) H 09/20/20 04:51 Creatinine 0.87 mg/dL (0.7-1.3) 09/20/20 04:51 Glucose 121 mg/dL (80-115) H 09/20/20 04:51 Calcium 8.8 mg/dL (7.8-10.44) 09/20/20 04:51 - Radiology Interpretation CT scan - head Status: image reviewed by me, report reviewed by me Additional Comment: Sub acute infarct in the left MCA territory PN A/P (1) Acute CVA (cerebrovascular accident) Code(s): I63.9 - CEREBRAL INFARCTION, UNSPECIFIED Status: Acute (2) Acute on chronic systolic ACC/AHA stage C congestive heart failure Code(s): I50.23 - ACUTE ON CHRONIC SYSTOLIC (CONGESTIVE) HEART FAILURE Status: Acute (3) COPD (chronic obstructive pulmonary disease) Status: Acute (4) Subdural hematoma Code(s): S06.5X9A - TRAUM SUBDR HEM W LOC OF UNSP DURATION, INIT Status: Acute (5) DM type 2 (diabetes mellitus, type 2) Status: Chronic Qualifiers: Diabetes mellitus extermination inspector insulin use: without extermination inspector use Diabetes mellitus complication status: with unspecified complications (6) H/O: CVA (cerebrovascular accident) Code(s): Z86.73 - PRSNL HX OF TIA (TIA), AND CEREB INFRC W/O RESID DEFICITS Status: Chronic (7) HLD (hyperlipidemia) Code(s): E78.5 - HYPERLIPIDEMIA, UNSPECIFIED Status: Chronic Qualifiers: Hyperlipidemia type: unspecified Qualified Code(s): E78.5 - Hyperlipidemia, unspecified (8) HTN (hypertension) Code(s): I10 - ESSENTIAL (PRIMARY) HYPERTENSION Status: Chronic Qualifiers: Hypertension type: essential hypertension Qualified Code(s): I10 - Essential (primary) hypertension (9) Tobacco dependence Code(s): F17.200 - NICOTINE DEPENDENCE, UNSPECIFIED, UNCOMPLICATED Status: Chronic - Plan Daily Plan: PT/OT, speech therapy, DVT proph w/SCDs Mr. Stubbs is a 65-year-old male with history significant for CAD artery stenosis s/p carotid endarterectomy presented with acute onset right hemiplegia with dysarthria postoperatively after surgery. Patient complain of shortness of breath but overall alert and oriented. He does have receptive aphasia. Case management on board regarding discharge planning. Awaiting discharge to rehab pending insurance. Patient has history of atrial fibrillation. Consider starting long-term oral anticoagulation 7 days post stroke which is 09/22/2020. Consider cardiology input before starting oral anticoagulation. Head CT on 09/16/2020 was consistent with subacute infarction in the left middle cerebral artery region. No acute bleed. Continue aspirin and Plavix for secondary stroke prevention. Continue high intensity statin for secondary stroke prevention. EEG reviewed and was negative for seizure activity. Continue telemetry. Neurochecks every 4 hours Strict control of blood glucose and blood pressure. Continue home medications. Patient has ongoing issues with dysphagia which is worsened because of the new acute intracranial process. Speech therapy is on board. Continue PT/OT Continue medical management per primary team. Plan discussed in detail with the patient and the nursing staff.
[2020-09-22] MEDS: Acetaminophen 325 MG TAB PO PRN ×2 (14:21→22:58)
--- NOTE | 2020-09-22 17:21 | PDOC.EP ---
- Subjective Date: 09/22/20 Time: 08:00 Interval History: NSVT overnight on telemetry, VR 112-135bpm. Patient unaware. He is tired. No new complaints. Significant residual deficits s/p CVA persist - Objective Allergies/Adverse Reactions: Allergies Allergy/AdvReac Type Severity Reaction Status Date / Time No Known Allergies Allergy Verified 09/13/20 09:45 Current Medications Acetaminophen (Acetaminophen 325 Mg Tab) 650 mg PO Q4H PRN PRN Reason: Fever > 101 or headache Last Admin: 09/22/20 14:21 Dose: 650 mg Documented by: Hydrocodone Bitart/Acetaminophen (Hydrocodone/Acetaminophen 5/325 Mg Tablet) 1 tab PO Q4H PRN PRN Reason: Mild Pain (1-3) Last Admin: 09/21/20 17:36 Dose: 1 tab Documented by: Albuterol/Ipratropium (Ipratropium/Albuterol Sulfate 3 Ml Neb) 3 ml NEB [id number] [facility] Last Admin: 09/22/20 13:34 Dose: 3 ml Documented by: Albuterol/Ipratropium (Ipratropium/Albuterol Sulfate 3 Ml Neb) 3 ml NEB [id number] PRN PRN Reason: SOB &/or Wheezing Last Admin: 09/22/20 04:01 Dose: 3 ml Documented by: Aspirin (Aspirin Chewable 81 Mg Tab) 81 mg PO QAM [facility] Last Admin: 09/22/20 09:25 Dose: 81 mg Documented by: Atorvastatin Calcium (Atorvastatin Calcium 20 Mg Tab) 20 mg PO HS [facility] Last Admin: 09/21/20 23:13 Dose: 20 mg Documented by: Carvedilol (Carvedilol 6.25 Mg Tab) 12.5 mg PO BID [facility] Last Admin: 09/22/20 09:26 Dose: 12.5 mg Documented by: Clopidogrel Bisulfate (Clopidogrel Bisulfate 75 Mg Tab) 75 mg PO QAM [facility] Last Admin: 09/22/20 09:29 Dose: 75 mg Documented by: Fentanyl (Fentanyl 100 Mcg/2 Ml Vial) 25 mcg SLOW IVP Q4H PRN PRN Reason: Moderate Pain (4-6) Fluticasone Propionate (Fluticasone Propionate Nasal [place] 16 Gm Bottle) 0 gm NASAL DAILY [facility] Last Admin: 09/22/20 10:12 Dose: 1 spr Documented by: Insulin Human Regular (Insulin Regular 300 Units/3 Ml Vial) 0 units SC .MILD SLIDING SCALE PRN PRN Reason: Mild Correctional Scale Last Admin: 09/14/20 17:23 Dose: 2 unit Documented by: Metformin HCl (Metformin 500 Mg Tab) 500 mg PO BID-[facility] Last Admin: 09/22/20 16:35 Dose: Not Given Documented by: Ondansetron HCl (Ondansetron Pf 4 Mg/2 Ml Vial) 4 mg IVP Q6H PRN PRN Reason: Nausea/Vomiting Sacubitril/Valsartan (Sacubitril 49 Mg/Valsartan 51 Mg Tablet) 1 tab PO BID [facility] Last Admin: 09/22/20 09:25 Dose: 1 tab Documented by: Tamsulosin HCl (Tamsulosin Hcl 0.4 Mg Cap) 0.4 mg PO HS [facility] Last Admin: 09/21/20 23:13 Dose: 0.4 mg Documented by: Venlafaxine HCl (Venlafaxine Xr 37.5 Mg Cap) 37.5 mg PO DAILY [facility] Last Admin: 09/22/20 09:30 Dose: 37.5 mg Documented by: Vital Signs & Weight: Vital Signs Temp Pulse Pulse Pulse Resp BP BP 09/22/20 14:37 98.7 F 73 20 09/22/20 11:00 97.5 F L 57 L 32 H 09/22/20 10:58 55 L 57 L 120/56 L 09/22/20 09:26 154/84 H 09/22/20 07:30 97.6 F 58 L 26 H BP BP Pulse Ox 09/22/20 14:37 157/88 H 93 L 09/22/20 11:00 126/71 96 09/22/20 10:58 126/71 09/22/20 09:26 09/22/20 07:30 130/78 92 L Admit Weight 242 lb Weight 242 lb I/O: I/O 09/21/20 09/22/20 09/23/20 06:59 06:59 06:59 Intake Total 300 480 Output Total 1 Balance 299 480 - Physical Exam General: no apparent distress, affect appropriate. negative: speech clear HEENT: mucus membranes moist, normocephaly Neck: supple neck, no lymphadenopathy Cardiology: regular rate and rhythm, no murmur, PMI nondisplaced Lungs: clear to auscultation, normal breath sounds, no wheeze, rales, rhonchi Neurology: negative: cranial nerve 2-12 intact, grossly intact - Labs Result Diagrams: 09/14/20 07:53 09/20/20 04:51 - EKG Interpretation EKG Method: Telemetry EKG shows: Sinus rhythm - Device Device: single, defibrillator Device Result: Medtronic - Assessment/Plan Assessment/Plan: 1. Ventricular tachycardia. a. A 42 beats ventricular tachycardia without ICD discharge noted likely stat termination likely below VT detection zone. 2. Chronic systolic congestive heart failure with ischemic cardiomyopathy. a. History of coronary artery bypass grafting surgery in 2001 following a bypass surgery x5 vessels. b. Left heart catheterization in January 2017 revealed occluded bypass graft, managed conservatively. c. Status post single-chamber ICD implantation in September 2017 with a Medtronic device. 3. Coronary artery disease. a. Complete occluded right and restenosed left carotid artery. b. Status post left carotid artery stenting performed on his admission on 09/22/2017. c. Presentation of acute stroke on 09/08/2020. 4. Type 2 diabetes. 5. Hypertension and elevated BMI. one new episode of nonsustained ventricular tachycardia was seen overnight on telemetry with ventricular rates 112-135 beats per minute. I further reduced the VT detect his own to began at 130 beats per minute for ventricular ATP therapies. the monitor zone will begin at 115 beats per minute. continue beta-michael therapy, titrating up as tolerated both for hypertension and arrhythmia management. per neurology's note, oral anticoagulation is planned to begin one-week post CVA event. he is not on antiarrhythmic therapy at this time but amiodarone could be considered if symptomatic or sustained events are seen EP signing off.
[2020-09-22] MEDS: Atorvastatin Calcium 20 MG TAB PO SCH (20:37)
[2020-09-22] MEDS: Tamsulosin HCl 0.4 MG CAP PO SCH (20:37)
[2020-09-23] MEDS: Acetaminophen 325 MG TAB PO PRN (05:24)
[2020-09-23] MEDS: Sacubitril 49 MG/Valsartan 51 MG TABLET PO SCH (11:16)
[2020-09-23] MEDS: Carvedilol 6.25 MG TAB PO SCH (11:16)
[2020-09-23] MEDS: Venlafaxine XR 37.5 MG CAP PO SCH (11:16)
[2020-09-23] MEDS: Aspirin Chewable 81 MG TAB PO SCH (11:16)
[2020-09-23] MEDS: Clopidogrel Bisulfate 75 MG TAB PO SCH (11:16)
[2020-09-23] MEDS: Fluticasone Propionate Nasal Spray 16 gm Bottle NASAL SCH (11:17)
[2020-09-23] MEDS: metFORMIN 500 MG TAB PO SCH (11:21)
--- NOTE | 2020-09-23 12:31 | PDOC.NEUPN ---
- Subjective Encounter Date: 09/23/20 Subjective: Mr. Stubbs feels better and denies any new complaints in the last 24 hours. - Objective Vital Signs & Weight: Vital Signs (12 hours) Temp Pulse Pulse Pulse Resp BP BP 09/23/20 11:28 98.1 F 77 30 H 09/23/20 11:16 137/83 09/23/20 09:07 72 70 130/70 09/23/20 08:29 68 22 H 09/23/20 07:59 98.0 F 57 L 16 09/23/20 04:01 98 F 69 30 H BP BP Pulse Ox 09/23/20 11:28 137/83 94 L 09/23/20 11:16 09/23/20 09:07 139/76 09/23/20 08:29 95 09/23/20 07:59 123/74 90 L 09/23/20 04:01 134/75 93 L Weight Admit Weight 242 lb Weight 242 lb Most Recent Monitor Data Heart Rate from ECG 74 NIBP 145/112 NIBP BP-Mean 123 Respiration from ECG 27 SpO2 100 I&O: 09/22/20 09/23/20 09/24/20 06:59 06:59 06:59 Intake Total 300 480 Output Total 1 Balance 299 480 Result Diagrams: 09/14/20 07:53 09/20/20 04:51 Additional Labs: Accuchecks 09/22/20 09/22/20 20:51 16:50 POC Glucose 109 H 117 H Radiology Reviewed by me: Yes EKG Reviewed by me: Yes ROS - Review of Systems Constitutional: denies: fever, chills, sweats, weakness, malaise, other Eyes: denies: pain, vision change, conjunctivae inflammation, eyelid inflammation, redness, other Respiratory: reports: cough, shortness of breath, SOB with excertion. denies: dry, hemoptysis, pleuritic pain, sputum, wheezing, other Cardiovascular: reports: AFIB, CAD, HTN, Hyperlipidemia. denies: no pertinent history, CHF, ND, Syncope, Mitral valve stenosis, Aortic stenosis, Valve insufficiency, Pulmonary hypertension, Other Gastrointestinal: denies: nausea, vomiting, abdominal pain, diarrhea, constipation, melena, hematochezia, other Genitourinary: denies: dysuria, frequency, incontinence, hematuria, retention, other Musculoskeletal: reports: neck pain. denies: shoulder pain, arm pain, back pain, hand pain, leg pain, foot pain, other Neurological: reports: weakness, numbness, incoordination, change in speech. denies: confusion, seizures, other - Medication Medications: Active Medications Generic Name Dose Route Start Last Admin Trade Name Freq PRN Reason Stop Dose Admin Acetaminophen 650 mg 09/14/20 12:22 09/23/20 05:24 Acetaminophen 325 Mg Tab PO 650 mg Q4H PRN Administration Fever > 101 or headache Hydrocodone Bitart/Acetaminophen 1 tab 09/14/20 12:22 09/21/20 17:36 Hydrocodone/Acetaminophen 5/325 Mg Tablet PO 1 tab Q4H PRN Administration Mild Pain (1-3) Albuterol/Ipratropium 3 ml 09/14/20 13:00 09/23/20 08:29 Ipratropium/Albuterol Sulfate 3 Ml Neb NEB 3 ml [id number] VIRI Administration Albuterol/Ipratropium 3 ml 09/14/20 16:54 09/22/20 04:01 Ipratropium/Albuterol Sulfate 3 Ml Neb NEB 3 ml [id number] PRN Administration SOB &/or Wheezing Aspirin 81 mg 09/15/20 09:00 09/23/20 11:16 Aspirin Chewable 81 Mg Tab PO 81 mg QAM VIRI Administration Atorvastatin Calcium 20 mg 09/14/20 21:00 09/22/20 20:37 Atorvastatin Calcium 20 Mg Tab PO 20 mg HS VIRI Administration Carvedilol 12.5 mg 09/14/20 21:00 09/23/20 11:16 Carvedilol 6.25 Mg Tab PO 12.5 mg BID VIRI Administration Clopidogrel Bisulfate 75 mg 09/15/20 09:00 09/23/20 11:16 Clopidogrel Bisulfate 75 Mg Tab PO 75 mg QAM VIRI Administration Fluticasone Propionate 0 gm 09/22/20 09:00 09/23/20 11:17 Fluticasone Propionate Nasal [place] 16 Gm Bottle NASAL 1 spr DAILY VIRI Administration Insulin Human Regular 0 units 09/14/20 12:22 09/14/20 17:23 Insulin Regular 300 Units/3 Ml Vial SC 2 unit .MILD SLIDING SCALE PRN Administration Mild Correctional Scale Metformin HCl 500 mg 09/14/20 17:00 09/23/20 11:21 Metformin 500 Mg Tab PO Not Given BID-WM VIRI Sacubitril/Valsartan 1 tab 09/14/20 21:00 09/23/20 11:16 Sacubitril 49 Mg/Valsartan 51 Mg Tablet PO 1 tab BID VIRI Administration Tamsulosin HCl 0.4 mg 09/16/20 21:00 09/22/20 20:37 Tamsulosin Hcl 0.4 Mg Cap PO 0.4 mg HS VIRI Administration Venlafaxine HCl 37.5 mg 09/15/20 09:00 09/23/20 11:16 Venlafaxine Xr 37.5 Mg Cap PO 37.5 mg DAILY VIRI Administration Results - Labs Result Diagrams: 09/14/20 07:53 09/20/20 04:51 Lab results: WBC 6.4 thou/uL (4.8-10.8) 09/14/20 07:53 Hgb 15.9 g/dL (14.0-18.0) 09/14/20 07:53 Hct 48.3 % (42.0-52.0) 09/14/20 07:53 MCV 92.4 fL (78.0-98.0) 09/14/20 07:53 Plt Count 233 thou/uL (130-400) 09/14/20 07:53 Sodium 137 mmol/L (136-145) 09/20/20 04:51 Potassium 4.0 mmol/L (3.5-5.1) 09/20/20 04:51 Chloride 109 mmol/L (98-107) H 09/20/20 04:51 Carbon Dioxide 18 mmol/L (23-31) L 09/20/20 04:51 BUN 26 mg/dL (8.4-25.7) H 09/20/20 04:51 Creatinine 0.87 mg/dL (0.7-1.3) 09/20/20 04:51 Glucose 121 mg/dL (80-115) H 09/20/20 04:51 Calcium 8.8 mg/dL (7.8-10.44) 09/20/20 04:51 - Radiology Interpretation CT scan - head Status: image reviewed by me, report reviewed by me Additional Comment: Subacute infarction in the left MCA territory PN A/P (1) Acute CVA (cerebrovascular accident) Code(s): I63.9 - CEREBRAL INFARCTION, UNSPECIFIED Status: Acute (2) Acute on chronic systolic ACC/AHA stage C congestive heart failure Code(s): I50.23 - ACUTE ON CHRONIC SYSTOLIC (CONGESTIVE) HEART FAILURE Status: Acute (3) COPD (chronic obstructive pulmonary disease) Status: Acute (4) Subdural hematoma Code(s): S06.5X9A - TRAUM SUBDR HEM W LOC OF UNSP DURATION, INIT Status: Acute (5) DM type 2 (diabetes mellitus, type 2) Status: Chronic Qualifiers: Diabetes mellitus custodial insulin use: without custodial use Diabetes mellitus complication status: with unspecified complications (6) H/O: CVA (cerebrovascular accident) Code(s): Z86.73 - PRSNL HX OF TIA (TIA), AND CEREB INFRC W/O RESID DEFICITS Status: Chronic (7) HLD (hyperlipidemia) Code(s): E78.5 - HYPERLIPIDEMIA, UNSPECIFIED Status: Chronic Qualifiers: Hyperlipidemia type: unspecified Qualified Code(s): E78.5 - Hyperlipidemia, unspecified (8) HTN (hypertension) Code(s): I10 - ESSENTIAL (PRIMARY) HYPERTENSION Status: Chronic Qualifiers: Hypertension type: essential hypertension Qualified Code(s): I10 - Esse ntial (primary) hypertension (9) Tobacco dependence Code(s): F17.200 - NICOTINE DEPENDENCE, UNSPECIFIED, UNCOMPLICATED Status: Chronic - Plan Daily Plan: PT/OT, speech therapy, DVT proph w/SCDs Mr. Stubbs is a 65-year-old male with history significant for CAD artery stenosis s/p carotid endarterectomy presented with acute onset right hemiplegia with dysarthria postoperatively after surgery. Patient feels better today and is alert and oriented to person and place. He does have receptive aphasia. Case management on board regarding discharge planning. Awaiting discharge to rehab pending insurance. Patient has history of atrial fibrillation. Per nursing staff, they had communication with Dr. Dodson yesterday who advised to hold off long-term oral anticoagulation at this time. Head CT on 09/16/2020 was consistent with subacute infarction in the left middle cerebral artery region. No acute bleed. Continue aspirin and Plavix for secondary stroke prevention. Continue high intensity statin for secondary stroke prevention. EEG reviewed and was negative for seizure activity. Continue telemetry. Neurochecks every 4 hours Strict control of blood glucose and blood pressure. Continue home medications. Patient has ongoing issues with dysphagia which is worsened because of the new acute intracranial process. Speech therapy is on board. Continue PT/OT Continue medical management per primary team. Plan discussed in detail with the patient and during the stroke rounds.
[2020-09-23 15:06] VITALS: BP 145/83
[2020-09-23 15:41] VITALS: TEMP 98.1
--- NOTE | 2020-09-24 01:08 | DIS ---
DATE OF ADMISSION: 09/14/2020 DATE OF DISCHARGE: 09/23/2020 HOSPITAL COURSE: The patient was admitted to the hospital on 09/14, where he underwent a TCAR for known right carotid occlusion and severe left internal carotid artery disease. Intraoperatively, the procedure proceeded nicely with no difficulties and he did have embolic debris noted in his filter at the conclusion of the procedure, which was not unexpected given the soft plaque at the carotid bifurcation. He did, however, awakened slowly with left-sided gaze and right hemiplegia. CT angiogram demonstrated what appeared to be severe calcific vascular occlusive disease in his left internal carotid artery in the siphon, which had not been previously appreciated on CT scans probably due to motion artifact. He had no embolic event that could be noted in his middle cerebral artery circulation. However, he did ultimately on repeat brain scan 09/2016 to have a subacute infarct involving the left middle cerebral artery distribution. His speech which was impaired prior to hospital admission from prior stroke improved to baseline while he was in the hospital. His hemiplegia also improved and he is now able to squeeze with his right hand, although cannot raise his right arm off the bed. 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 He continues to ignore the right side. His lungs have bilateral rhonchi with occasional wheezing and this is also baseline due to longstanding smoking history. He was noted to have some ventricular tachycardia in the hospital and was seen by Dr. Jacobson in this regards and I believe his defibrillator was reprogrammed as well to may be properly sense this rhythm. The patient will be sent to the rehab inpatient unit and I expect probably a nursing facility, likely after this since he does live alone and does not really have any significant family support at this time. Job ID: [id number]
== END 2020-09-23 16:30 | DRG 34 ==
LOC: SURG A 07:03 → CCU 13:41 → 2SE 09-16 08:27
PROVIDERS: ADMIT Thoracic Surgery (Cardiothoracic Vascular Surgery); ATTEND Thoracic Surgery (Cardiothoracic Vascular Surgery)
PROC: 037L3DZ Dilation of Left Internal Carotid Artery with Intraluminal Device, Percutaneous Approach (ICD-10-PCS; principal; 2020-09-14)
PROC: 3E033XZ Introduction of Vasopressor into Peripheral Vein, Percutaneous Approach (ICD-10-PCS; 2020-09-14)
PROC: 4B02XTZ Measurement of Cardiac Defibrillator, External Approach (ICD-10-PCS; 2020-09-20)
DX: I65.23 Occlusion and stenosis of bilateral carotid arteries (principal); I50.23 Acute on chronic systolic (congestive) heart failure; I63.412 Cerebral infarction due to embolism of left middle cerebral artery; G81.91 Hemiplegia, unspecified affecting right dominant side; I97.811 Intraoperative cerebrovascular infarction during other surgery; I47.2 Ventricular tachycardia; I47.1 Supraventricular tachycardia; R47.81 Slurred speech; I25.10 Atherosclerotic heart disease of native coronary artery without angina pectoris; F17.210 Nicotine dependence, cigarettes, uncomplicated; R47.1 Dysarthria and anarthria; I48.0 Paroxysmal atrial fibrillation; E78.5 Hyperlipidemia, unspecified; J44.9 Chronic obstructive pulmonary disease, unspecified; E11.9 Type 2 diabetes mellitus without complications; Y83.8 Other surgical procedures as the cause of abnormal reaction of the patient, or of later complication, without mention of misadventure at the time of the procedure; I11.0 Hypertensive heart disease with heart failure; I25.5 Ischemic cardiomyopathy; R13.10 Dysphagia, unspecified; R29.713 NIHSS score 13; Z95.1 Presence of aortocoronary bypass graft; Z95.810 Presence of automatic (implantable) cardiac defibrillator; Z79.899 Other long term (current) drug therapy; Z79.84 Long term (current) use of oral hypoglycemic drugs; Z79.82 Long term (current) use of aspirin
CPT/HCPCS: 36415; 36416; 70450; 70496; 76000; 80048; 85027; 86850; 86900; 86901; 94640; 95712; 95816; 95819; 95957; C1725; C1876; C1884; J0282; J0461; J0690; J1100; J1642; J1644; J1815; J1940; J2250; J2370; J2704; J2720; J3010; J3475; J7070; J7620; Q9967